=== PATIENT | male | born 1960 | race Caucasian/White ===

== ENCOUNTER 2019-06-23 11:48 | Outpatient (CLI) | payer BC, SELFPAY ==
--- NOTE | 2019-06-23 11:59 | XR_ITS ---
WS: [id number] LUMBAR SPINE: 3 VIEWS TECHNIQUE: AP, lateral and L5-S1 spot. HISTORY: LUMBAGO COMPARISON: None available. Straightening of the normal lumbar lordosis. Mild facet joint arthropathy at L4-5 and L5-S1. No fract ures. Endplate osteophytes. Disc spaces are well preserved. There is very slight LEFT curvature of th e lumbar spine. Endplate osteophytes at all levels in the lumbar spine. Mild bilateral SI joint narrowing. XR/XR lumbar spine 2-3V* [id number] IMPRESSION: 1. No lumbar spine fracture. 2. Mild spondylosis with slight LEFT convex curvature of the lumbar spine.
== END 2019-06-23 11:49 | disposition home or self-care (01) ==
LOC: RADWPI 11:55
PROVIDERS: PCP Nurse Practitioner Family; Visit Provider Nurse Practitioner Family
DX: M54.5 Low back pain (principal); M47.9 Spondylosis, unspecified
CPT/HCPCS: 72100

== ENCOUNTER 2019-11-03 08:26 | Outpatient (CLI) | payer MEDICAID, SELFPAY ==
--- NOTE | 2019-11-03 08:35 | XR_ITS ---
WS: [id number] CERVICAL SPINE TECHNIQUE: 3 views of the cervical spine CLINICAL INFORMATION: NEUROPATHY, PERIPHERAL COMPARISON: None. FINDINGS: Normal cervical alignment. Normal C1-2 articulation. Normal prevertebral soft tissues. Mild spondylit ic changes. Dens is normal in appearance. XR/XR cervical spine 3V* [id number] IMPRESSION: Mild spondylitic changes. Otherwise unremarkable cervical spine.
== END 2019-11-03 08:27 | disposition home or self-care (01) ==
LOC: RADWPI 08:29
PROVIDERS: Family Provider Nurse Practitioner Family; PCP Nurse Practitioner Family; Visit Provider Nurse Practitioner Family
DX: G62.9 Polyneuropathy, unspecified (principal); I10 Essential (primary) hypertension; E78.5 Hyperlipidemia, unspecified
CPT/HCPCS: 72040

== ENCOUNTER → 2019-11-29 11:51 | Outpatient (BNVA) | payer MEDICAID, SELFPAY | PROVIDERS: Family Provider Nurse Practitioner Family; PCP Nurse Practitioner Family; Referring Provider Nurse Practitioner Family; Visit Provider Specialist | DX: G56.23 Lesion of ulnar nerve, bilateral upper limbs (principal); R20.0 Anesthesia of skin; R20.2 Paresthesia of skin | CPT/HCPCS: 95910 ==

== ENCOUNTER 2020-02-20 20:00 | Outpatient (CLI) | payer MEDICAID, SELFPAY | END 2020-02-20 20:01 | disposition home or self-care (01) | LOC: SLEEP 02-21 09:34 | PROVIDERS: Family Provider Nurse Practitioner Family; PCP Nurse Practitioner Family; Visit Provider Nurse Practitioner Family | DX: G47.33 Obstructive sleep apnea (adult) (pediatric) (principal) | CPT/HCPCS: 95811 ==

== ENCOUNTER 2020-03-21 20:00 | Outpatient (CLI) | payer MEDICAID, SELFPAY | END 2020-03-21 20:01 | disposition home or self-care (01) | LOC: SLEEP 03-22 09:10 | PROVIDERS: PCP Nurse Practitioner Family; Visit Provider Nurse Practitioner Family | DX: G47.33 Obstructive sleep apnea (adult) (pediatric) (principal) | CPT/HCPCS: 95811 ==

== ENCOUNTER 2020-03-21 23:10 | Inpatient (IN) | payer MEDICAID, SELFPAY ==
[2020-03-21 23:11] VITALS: BP 107/70; PULSE 70; TEMP 36.7; O2SAT 99; BMI 39.1
--- NOTE | 2020-03-21 23:15 | CTR_ITS ---
PROCEDURE INFORMATION: Exam: CT Head Without Contrast Exam date and time: 03/21/2020 11:30 PM Age: 60 years old Clinical indication: Altered mental status/memory loss; Confusion or disorientation TECHNIQUE: Imaging protocol: Computed tomography of the head without contrast. Radiation optimization: All CT scans at this facility use at least one of these dose optimization techniques: automated exposure control; mA and/or kV adjustment per patient size (includes targeted exams where dose is matched to clinical indication); or iterative reconstruction. COMPARISON: No relevant prior studies available. RADIATION DOSE METRICS: Total DLP (mGy-cm): 1495.75 FINDINGS: Brain: No acute intracranial hemorrhage or mass effect. No definite acute infarct by CT. MRI could be more sensitive/specific for detection, as clinically directed. Cerebral ventricles: Ventricle size is normal for age. Bones/joints: No definite acute skull fracture. Paranasal sinuses: Included paranasal sinuses are essentially clear. Mastoid air cells: No significant acute finding. Vasculature: Vascular calcifications in the internal carotid arteries. CT/CT head wo con* [id number] IMPRESSION: 1. No acute intracranial hemorrhage or mass effect. 2. No definite acute infarct by CT, see above. 3. Other findings discussed above. Radiation Dose CTDIVOL = (mGy): DLP = 1495.75 (mGy-cm)
--- NOTE | 2020-03-21 23:15 | XR_ITS ---
WS: [id number] Exam: XR chest 1V portable [id number] Date/Time of Exam: 03/21/2020 11:30 PM Reason For Exam: Altered mental status No prior exams. The lungs are fully expanded. No infiltrates or pleural effusions are seen. Heart size is top limits normal. The mediastinum and bony thorax are unremarkable. XR/XR chest 1V portable [id number] IMPRESSION: 1. No acute cardiopulmonary finding.
--- NOTE | 2020-03-21 23:16 | ECG_ITS ---
[facility] Test Date: 2020-03-22 Pat Name: Richard Inman Department: Room: Gender: Male Nurse Advisor: : 1960 Requested By: Joann Santiago Order Number: [id number] Reading MD: JACINTA YOUNG Measurements Intervals [place] Rate: 69 P: 69 NH: 181 QRS: 61 QRSD: 88 T: 42 QT: 392 QTc: 422 Interpretive Statements SINUS RHYTHM No previous ECG available for comparison Electronically Signed On 03-22-2020 18:21:26 CDT by JACINTA YOUNG [id number] f
[2020-03-21 23:30] VITALS: BP 107/61; PULSE 71; RESP 28; O2SAT 92
--- NOTE | 2020-03-21 23:35 | ED_ITS ---
HPI - General Adult General: Chief complaint: General Medical Stated complaint: low o2 Time Seen by Provider: 03/21/20 23:14 Source: patient and EMS Mode of arrival: EMS Limitations: altered mental status History of Present Illness: HPI narrative: Richard is a 60-year-old male brought in by EMS from the sleep lab here at the hospital. Poor historian secondary to confusion and somnolence. EMS reports the patient has been sick for the past few days but it is unclear with what illness. It sounds as though it is more of respiratory symptoms than anything else. The patient was to have a sleep study done tonight and upon arrival there they registered a pulse oximetry at 62%. They placed the patient on supplemental oxygen and got his oxygen up to the 90s on 4 L. EMS reports the patient seems confused and does not understand while he is going to the ER. At times though the patient will just fall asleep and has to be shouted out to have him open his eyes. Patient answers most questions but does not give more than 1 or 2 word answers. Patient states that he does not take any narcotics, benzodiazepines then denies alcohol. All further history is taken from records found in the chart and from EMS. Review of Systems General: Reports: ROS unobtainable due to mental status [facility] PFSH: Medical History CVA (cerebral vascular accident) Depression with anxiety GERD (gastroesophageal reflux disease) Hyperlipidemia Hypertension Obstructive sleep apnea Physical Exam Const: COMMON NORMALS: alert GENERAL APPEARANCE: lethargic and diaphoretic ORIENTATION/CONSCIOUSNESS: Yes lethargic HENMT: COMMON NORMALS: normocephalic, atraumatic, external ears normal, EAC's normal and Normal external nose present HEAD & SCALP: normal to inspection, normocephalic and atraumatic FACE & SINUS: normal facial exam and face symmetric NOSE: Normal external nose present and Normal nares present EXTERNAL EAR: Yes external ears normal EXTERNAL AUDITORY CANAL: EAC's normal MOUTH: Normal oral and palatal mucosa present, lip normal and tongue normal Eye: COMMON NORMALS: Equal, round and reactive pupils present and conjunctivae normal GENERAL EYE: appearance normal, both eyes and all related structures ALIGNMENT: Yes alignment normal PERIORBITAL: periorbital findings normal EYELID: eyelids normal CONJUNCTIVA: Yes conjunctivae normal SCLERA: sclerae normal PUPIL: Yes Equal, round and reactive pupils present Neck/C-Spine: COMMON NORMALS: full ROM, no lymphadenopathy, supple, no meningeal signs and no JVD GENERAL: Yes normal visual inspection and Yes trachea midline Chest: COMMONS NORMALS: normal inspection of the chest and normal palpation of entire chest wall Resp: EFFORT & INSPECTION: Yes audible wheezes AUSCULTATION: rhonchi, wheezes and diminished lung sounds Cardio: COMMON NORMALS: no JVD, regular rate, regular rhythm, S1 normal heart sound present and S2 normal heart sound present RATE: regular rate RHYTHM: regular rhythm HEART SOUNDS: S1 normal heart sound present, S2 normal heart sound present, no click, no gallops, no murmurs and no rubs GI: COMMON NORMALS: Soft to palpation and No hepatosplenomegaly present PALPATION: Yes Soft to palpation, No Tenderness to palpation present (GI), No Guarding due to palpation present (GI), No Rigid due to palpation, Yes No hepatosplenomegaly present, No Hernia present, No Palpable mass present and No Pulsatile mass present : COMMON NORMALS: Yes no CVA tenderness BLADDER/KIDNEY EXAM: Yes no CVA tenderness Back/Pelvis: COMMON NORMALS: no CVA tenderness, thoracic and lumbar spine normal to inspection, no thoracic nor lumbar tenderness and thoraco-lumbar ROM normal Extremity: COMMON NORMALS: normal to inspection, full ROM, capillary refill normal, no joint enlargement, no clubbing, cyanosis or edema and no calf tenderness Neuro: ALDEN COMA SCALE: document GCS findings Veteran coma scale eye opening: Spontaneous Veteran coma scale verbal response: Confused Veteran coma scale motor response: Obey commands Alden coma scale total score: 14 COMMON NORMALS: CN's II-XII intact bilaterally, moves all extremities, no focal motor deficits and no sensory deficits noted SENSORIUM/ORIENTATION: Yes alert and Yes lethargic MENINGEAL SIGNS: Yes no meningeal signs SPEECH: speech normal Skin: COMMON NORMALS: no rashes or lesions noted, turgor normal, no jaundice, no petechiae and no mottling GENERAL SKIN EXAM: no rashes or lesions noted and turgor normal Procedures Intubation Time out performed: Yes sedative: Etomidate Mg Given: 30 paralytic: Succinylcholine Mg Given: 175 Laryngoscope: Samantha ET Tube Size: 8 ET Tube Uncuffed: Yes Tube Secured Location: teeth Tube Placement Confirmation: visualized tube passing through cords, equal breath sounds bilaterally, no breath sounds over epigastrium and confirmation by capnometry Patient Tolerated Procedure: well and no complications Intubation Complications: none Course Vital Signs: Vital signs: Vital Signs Temperature 98.0 F 03/21/20 23:11 Pulse Rate 78 03/22/20 02:44 Respiratory Rate 14 03/22/20 03:30 Blood Pressure 100/60 03/22/20 02:44 Pulse Oximetry 94 03/22/20 02:44 MDM - General Adult MDM Narrative: Medical decision making narrative: Mr. Inman ultimately failed treatment with BiPAP and had to be intubated for his symptoms. Patient was seen evaluated by Dr. Amaro and he was agreeable to the patient. Patient was a difficult intubation secondary to him being short with little neck and a beer but he was successfully intubated. His believe that he likely has some type of hypercapnic respiratory failure possibly precipitated by narcotic use but is unclear at this time. Lab Data: Labs: Lab Results 03/21/20 03/21/20 03/21/20 Range/Units 23:15 23:30 23:30 WBC 8.8 (4.0-10.0) 10^3/ uL RBC 4.82 (4.1-5.3) 10^6/u L Hgb 12.4 (11.7-16.6) g/dL Hct 44.3 (42.0-52.0) % MCV 91.9 (80-94) fL MCH 25.7 L (28.0-34.0) pg MCHC 28.0 L (30.0-36.0) g/dL RDW 16.3 H (12.1-15.1) % Plt Count 204 (130-400) 10^3/c mm MPV 9.9 (7.4-10.4) fL Neut % (Auto) 69.2 % Lymph % (Auto) 18.2 % Power % (Auto) 11.1 % Eos % (Auto) 0.8 % Baso % (Auto) 0.5 % Neut # (Auto) 6.12 (1.8-7.7) 10^3/u L Lymph # (Auto) 1.6 (0.8-4.8) 10^3/u L Power # (Auto) 1.0 H (0.2-0.9) 10^3/u L Eos # (Auto) 0.1 (0.0-0.8) 10^3/u L Baso # (Auto) 0.0 (0.0-0.1) 10^3/u L Nucleated RBC % (a uto) 0.5 % Nucleated RBCs # 0.0 /100WBC PT 13.30 (12.1-14.9) SECO NDS INR 0.98 (0.8-1.2) Specimen Type Arterial Sample Site Radial, right ABG pH 7.28 L (7.35-7.45) ABG pCO2 66.4 H* (35-45) mmHg ABG pO2 86.1 (80.0-100.0) mmH g ABG HCO3 31.4 H (22-26) mmol/L ABG O2 Saturation 95.7 ABG Base Excess 3.0 H (-2.0-2.0) mmol/ L Kai Test Pos Hematocrit 37.9 L (42-52) % Hgb O2 Saturation 92.4 L (95-100) % Carboxyhemoglobin 2.4 (0.4-20.1) %THgb Methemoglobin 1.0 (0.4-1.5) % Total Hemoglobin 12.4 L (14-18) g/dL Sodium 143.0 (131-143) mmol/L Potassium 4.5 (3.5-5.0) mmol/L Glucose 90.0 (70-115) mg/dL Ionized Calcium 1.2 (1.1-1.4) mmol/L O2 Delivery Device Nc O2 Liters/Min 2.0 % FiO2 % Epic Analyst ID Harkr Chloride (98-107) mmol/L Carbon Dioxide (22-29) mmol/L Anion Gap (5-19) BUN (8-23) mg/dL Creatinine (0.7-1.2) mg/dL GFR Calculation (90-130) mL/min Calculated Osmolal ity (285-295) mOsm/k g Lactic Acid (0.5-2.2) mmol/L Calcium (8.5-10.5) mg/dL Magnesium (1.7-2.3) mg/dL Total Bilirubin (0.15-1.2) mg/dL AST (0-40) U/L ALT (0-41) U/L Alkaline Phosphata se (40-130) IU/L Ammonia (16-60) umol/L Troponin T Baselin e (0-15) ng/L Troponin T 120 Min port gamble (0-15) ng/L Delta Troponin T (0-10) ABS# NT-Pro-B Natriuret Pep (0-125) pg/mL Total Protein (6.6-8.7) g/dL Albumin (3.5-5.2) g/dL Globulin (1.3-4.6) g/dL Lipase (13-60) U/L Ethyl Alcohol (0-10) mg/dL Influenza Type A A g (Negative) Influenza Type B A g (Negative) SARS-CoV-2 Ag (Rap id) (Negative) 03/21/20 03/21/20 03/21/20 Range/Units 23:30 23:30 23:30 WBC (4.0-10.0) 10^3/ uL RBC (4.1-5.3) 10^6/u L Hgb (11.7-16.6) g/dL Hct (42.0-52.0) % MCV (80-94) fL MCH (28.0-34.0) pg MCHC (30.0-36.0) g/dL RDW (12.1-15.1) % Plt Count (130-400) 10^3/c mm MPV (7.4-10.4) fL Neut % (Auto) % Lymph % (Auto) % Power % (Auto) % Eos % (Auto) % Baso % (Auto) % Neut # (Auto) (1.8-7.7) 10^3/u L Lymph # (Auto) (0.8-4.8) 10^3/u L Power # (Auto) (0.2-0.9) 10^3/u L Eos # (Auto) (0.0-0.8) 10^3/u L Baso # (Auto) (0.0-0.1) 10^3/u L Nucleated RBC % (a uto) % Nucleated RBCs # /100WBC PT (12.1-14.9) SECO NDS INR (0.8-1.2) Specimen Type Sample Site ABG pH (7.35-7.45) ABG pCO2 (35-45) mmHg ABG pO2 (80.0-100.0) mmH g ABG HCO3 (22-26) mmol/L ABG O2 Saturation ABG Base Excess (-2.0-2.0) mmol/ L Kai Test Hematocrit (42-52) % Hgb O2 Saturation (95-100) % Carboxyhemoglobin (0.4-20.1) %THgb Methemoglobin (0.4-1.5) % Total Hemoglobin (14-18) g/dL Sodium 143 (131-143) mmol/L Potassium 5.0 (3.5-5.0) mmol/L Glucose 96 (70-115) mg/dL Ionized Calcium (1.1-1.4) mmol/L O2 Delivery Device O2 Liters/Min % FiO2 % Epic Analyst ID Chloride 105 (98-107) mmol/L Carbon Dioxide 30 H (22-29) mmol/L Anion Gap 13.0 (5-19) BUN 40 H (8-23) mg/dL Creatinine 2.5 H (0.7-1.2) mg/dL GFR Calculation 26.4 L (90-130) mL/min Calculated Osmolal ity 306 H (285-295) mOsm/k g Lactic Acid 0.9 (0.5-2.2) mmol/L Calcium 8.6 (8.5-10.5) mg/dL Magnesium 2.6 H (1.7-2.3) mg/dL Total Bilirubin 0.2 (0.15-1.2) mg/dL AST 12 (0-40) U/L ALT 16 (0-41) U/L Alkaline Phosphata se 86 (40-130) IU/L Ammonia (16-60) umol/L Troponin T Baselin e 41 H (0-15) ng/L Troponin T 120 Min port gamble (0-15) ng/L Delta Troponin T (0-10) ABS# NT-Pro-B Natriuret Pep 3847 H (0-125) pg/mL Total Protein 6.0 L (6.6-8.7) g/dL Albumin 3.8 (3.5-5.2) g/dL Globulin 2.2 (1.3-4.6) g/dL Lipase 33 (13-60) U/L Ethyl Alcohol < 10 (0-10) mg/dL Influenza Type A A g (Negative) Influenza Type B A g (Negative) SARS-CoV-2 Ag (Rap id) (Negative) 03/22/20 03/22/20 03/22/20 Range/Units 00:20 00:20 00:20 WBC (4.0-10.0) 10^3/ uL RBC (4.1-5.3) 10^6/u L Hgb (11.7-16.6) g/dL Hct (42.0-52.0) % MCV (80-94) fL MCH (28.0-34.0) pg MCHC (30.0-36.0) g/dL RDW (12.1-15.1) % Plt Count (130-400) 10^3/c mm MPV (7.4-10.4) fL Neut % (Auto) % Lymph % (Auto) % Power % (Auto) % Eos % (Auto) % Baso % (Auto) % Neut # (Auto) (1.8-7.7) 10^3/u L Lymph # (Auto) (0.8-4.8) 10^3/u L Power # (Auto) (0.2-0.9) 10^3/u L Eos # (Auto) (0.0-0.8) 10^3/u L Baso # (Auto) (0.0-0.1) 10^3/u L Nucleated RBC % (a uto) % Nucleated RBCs # /100WBC PT (12.1-14.9) SECO NDS INR (0.8-1.2) Specimen Type Sample Site ABG pH (7.35-7.45) ABG pCO2 (35-45) mmHg ABG pO2 (80.0-100.0) mmH g ABG HCO3 (22-26) mmol/L ABG O2 Saturation ABG Base Excess (-2.0-2.0) mmol/ L Kai Test Hematocrit (42-52) % Hgb O2 Saturation (95-100) % Carboxyhemoglobin (0.4-20.1) %THgb Methemoglobin (0.4-1.5) % Total Hemoglobin (14-18) g/dL Sodium (131-143) mmol/L Potassium (3.5-5.0) mmol/L Glucose (70-115) mg/dL Ionized Calcium (1.1-1.4) mmol/L O2 Delivery Device O2 Liters/Min % FiO2 % Epic Analyst ID Chloride (98-107) mmol/L Carbon Dioxide (22-29) mmol/L Anion Gap (5-19) BUN (8-23) mg/dL Creatinine (0.7-1.2) mg/dL GFR Calculation (90-130) mL/min Calculated Osmolal ity (285-295) mOsm/k g Lactic Acid (0.5-2.2) mmol/L Calcium (8.5-10.5) mg/dL Magnesium (1.7-2.3) mg/dL Total Bilirubin (0.15-1.2) mg/dL AST (0-40) U/L ALT (0-41) U/L Alkaline Phosphata se (40-130) IU/L Ammonia 37 (16-60) umol/L Troponin T Baselin e (0-15) ng/L Troponin T 120 Min port gamble (0-15) ng/L Delta Troponin T (0-10) ABS# NT-Pro-B Natriuret Pep (0-125) pg/mL Total Protein (6.6-8.7) g/dL Albumin (3.5-5.2) g/dL Globulin (1.3-4.6) g/dL Lipase (13-60) U/L Ethyl Alcohol (0-10) mg/dL Influenza Type A A g Negative (Negative) Influenza Type B A g Negative (Negative) SARS-CoV-2 Ag (Rap id) Negative (Negative) 03/22/20 03/22/20 Range/Units 00:58 02:41 WBC (4.0-10.0) 10^3/ uL RBC (4.1-5.3) 10^6/u L Hgb (11.7-16.6) g/dL Hct (42.0-52.0) % MCV (80-94) fL MCH (28.0-34.0) pg MCHC (30.0-36.0) g/dL RDW (12.1-15.1) % Plt Count (130-400) 10^3/c mm MPV (7.4-10.4) fL Neut % (Auto) % Lymph % (Auto) % Power % (Auto) % Eos % (Auto) % Baso % (Auto) % Neut # (Auto) (1.8-7.7) 10^3/u L Lymph # (Auto) (0.8-4.8) 10^3/u L Power # (Auto) (0.2-0.9) 10^3/u L Eos # (Auto) (0.0-0.8) 10^3/u L Baso # (Auto) (0.0-0.1) 10^3/u L Nucleated RBC % (a uto) % Nucleated RBCs # /100WBC PT (12.1-14.9) SECO NDS INR (0.8-1.2) Specimen Type Arterial Sample Site Radial, right ABG pH 7.24 L (7.35-7.45) ABG pCO2 71.5 H* (35-45) mmHg ABG pO2 88.3 (80.0-100.0) mmH g ABG HCO3 30.3 H (22-26) mmol/L ABG O2 Saturation ABG Base Excess 1.0 (-2.0-2.0) mmol/ L Kai Test Pos Hematocrit 38.0 L (42-52) % Hgb O2 Saturation (95-100) % Carboxyhemoglobin (0.4-20.1) %THgb Methemoglobin (0.4-1.5) % Total Hemoglobin (14-18) g/dL Sodium (131-143) mmol/L Potassium (3.5-5.0) mmol/L Glucose (70-115) mg/dL Ionized Calcium (1.1-1.4) mmol/L O2 Delivery Device Bipap O2 Liters/Min % FiO2 0.4 % Epic Analyst ID Harkr Chloride (98-107) mmol/L Carbon Dioxide (22-29) mmol/L Anion Gap (5-19) BUN (8-23) mg/dL Creatinine (0.7-1.2) mg/dL GFR Calculation (90-130) mL/min Calculated Osmolal ity (285-295) mOsm/k g Lactic Acid (0.5-2.2) mmol/L Calcium (8.5-10.5) mg/dL Magnesium (1.7-2.3) mg/dL Total Bilirubin (0.15-1.2) mg/dL AST (0-40) U/L ALT (0-41) U/L Alkaline Phosphata se (40-130) IU/L Ammonia (16-60) umol/L Troponin T Baselin e (0-15) ng/L Troponin T 120 Min port gamble 38.04 H (0-15) ng/L Delta Troponin T -2.96 L (0-10) ABS# NT-Pro-B Natriuret Pep (0-125) pg/mL Total Protein (6.6-8.7) g/dL Albumin (3.5-5.2) g/dL Globulin (1.3-4.6) g/dL Lipase (13-60) U/L Ethyl Alcohol (0-10) mg/dL Influenza Type A A g (Negative) Influenza Type B A g (Negative) SARS-CoV-2 Ag (Rap id) (Negative) Imaging Data^: CXR: Attestation: I personally reviewed and interpreted this imaging study as follows: My impression: No acute cardiopulmonary findings. CXR Post Intubation: Attestation: I personally reviewed and interpreted this imaging study as follows: My impression: ET tube and NG tube with appropriate placement. CT Head: Radiologist's impression: [address] [address] [address] Scan Report Signed Patient: Richard Inman Unit #: [id number] : 1960 Age/Sex: 60 / M ADM Date: 03/21/20 Loc: ER Room/Bed: Attending Dr: Ordering Provider/Ordering MD: Joann Escalera DO Date of Service: 03/21/20 Procedure(s): CT head wo con* [id number] Accession Number(s): [id number] Report Number: [id number] PROCEDURE INFORMATION: Exam: CT Head Without Contrast Exam date and time: 03/21/2020 11:30 PM Age: 60 years old Clinical indication: Altered mental status/memory loss; Confusion or disorientation TECHNIQUE: Imaging protocol: Computed tomography of the head without contrast. Radiation optimization: All CT scans at this facility use at least one of these dose optimization techniques: automated exposure control; mA and/or kV adjustment per patient size (includes targeted exams where dose is matched to clinical indication); or iterative reconstruction. COMPARISON: No relevant prior studies available. RADIATION DOSE METRICS: Total DLP (mGy-cm): 1495.75 FINDINGS: Brain: No acute intracranial hemorrhage or mass effect. No definite acute infarct by CT. MRI could be more sensitive/specific for detection, as clinically directed. Cerebral ventricles: Ventricle size is normal for age. Bones/joints: No definite acute skull fracture. Paranasal sinuses: Included paranasal sinuses are essentially clear. Mastoid air cells: No significant acute finding. Vasculature: Vascular calcifications in the internal carotid arteries. CT/CT head wo con* [id number] IMPRESSION: 1. No acute intracranial hemorrhage or mass effect. 2. No definite acute infarct by CT, see above. 3. Other findings discussed above. Radiation Dose CTDIVOL = (mGy): DLP = 1495.75 (mGy-cm) Dictated By: Jerson Levy MD Signed By: Jerson Lvey MD Signed Date/Time: 03/22/209 DD/ EKG Data^: EKG 1: Attestation: I personally reviewed and interpreted this EKG as follows: EKG interpretation date: 03/22/20 EKG interpretation time: 00:20 Interpretation: Normal sinus rhythm at 64 beats a minute, no blocks, normal intervals, no acute ST-T wave changes. Computer generated interpretation: Head CT 03/21/20 23:15 IMPRESSION: 1. No acute intracranial hemorrhage or mass effect. 2. No definite acute infarct by CT, see above. 3. Other findings discussed above. Radiation Dose CTDIVOL = (mGy): DLP = 1495.75 (mGy-cm) Discharge Plan Discharge Patient Disposition: Admitted As Inpatient Admit Provider: Ama Amaro Clinical Impression: Acute hypercapnic respiratory failure, Acute alteration in mental status Condition: Stable Coding Level of Care Code ED Pulling Machine Operator for Chg Fwd Exam Comprehensive
[2020-03-21 23:41] LABS: Basophils % 0.5 %; Eosinophils # 0.1 10^3/uL (0.0-0.8); Eosinophils % 0.8 %; Hematocrit 44.3 % (42.0-52.0); Hemoglobin 12.4 g/dL (11.7-16.6); Lymphocytes # 1.6 10^3/uL (0.8-4.8); Lymphocytes % 18.2 %; Mean Corpuscular Hemoglobin 25.7 pg (28.0-34.0); Mean Corpuscular Volume 91.9 fL (80-94); Mean Platelet Volume 9.9 fL (7.4-10.4); Monocytes % 11.1 %; Neutrophils # 6.12 10^3/uL (1.8-7.7); Neutrophils % 69.2 %; Nucleated Red Blood Cells % 0.5 %; Platelet Count 204 10^3/cmm (130-400); Red Blood Count 4.82 10^6/uL (4.1-5.3); Red Cell Distribution Width 16.3 % (12.1-15.1); White Blood Count 8.8 10^3/uL (4.0-10.0)
[2020-03-21 23:56] LABS: INR 0.98 (0.8-1.2)
[2020-03-22] VITALS (47 sets, daily range): BP systolic 88–142; BP diastolic 50–83; PULSE 52–82; RESP 14–26; TEMP 37.1–37.7; O2SAT 68–99
[2020-03-22 00:04] LABS: Troponin(5th) Baseline 41 ng/L (0-15)
[2020-03-22] MEDS: dexamethasone 10 mg/mL INJ IVP (00:06)
[2020-03-22] MEDS: ondansetron 2 mg/ML SDV 2 mL 4 MG IVP (00:08)
[2020-03-22] MEDS: sodium chloride 0.9% 1,000 ML 100 ML IV (00:10)
[2020-03-22 00:13] LABS: Alanine Aminotransferase 16 U/L (0-41); Albumin Level 3.8 g/dL (3.5-5.2); Alkaline Phosphatase 86 IU/L (40-130); Aspartate Amino Transferase 12 U/L (0-40); Blood Urea Nitrogen 40 mg/dL (8-23); Calcium 8.6 mg/dL (8.5-10.5); Carbon Dioxide 30 mmol/L (22-29); Chloride 105 mmol/L (98-107); Globulin 2.2 g/dL (1.3-4.6); Glomerular Filtration Rate 26.4 mL/min (90-130); Glucose 96 mg/dL (65-115); Lipase 33 U/L (13-60); Magnesium 2.6 mg/dL (1.7-2.3); NT Pro B Type Natriuretic Pept 3847 pg/mL (0-125); Osmolality Calculated 306 mOsm/kg (285-295); Sodium 143 mmol/L (136-145); Total Bilirubin 0.2 mg/dL (0.15-1.2)
[2020-03-22 00:14] LABS: Lactic Sepsis W/Reflex 0.9 mmol/L (0.5-2.2)
[2020-03-22 00:20] LABS: ABG PH Result 7.28 (7.35-7.45); Arterial Blood Gas Hematocrit 37.9 % (42-52); Blood Gas Allen Test Pos; Blood Gas Sample Type Arterial; Carboxyhemoglobin 2.4 %THgb (0.4-20.1); HCO3 ABG 31.4 mmol/L (22-26); HGB O2 Sat 92.4 % (95-100); Ionized Calcium Level - ABG 1.2 mmol/L (1.1-1.4); Oxygen Saturation ABG 95.7; PO2 ABG 86.1 mmHg (80.0-100.0); Potassium Level - ABG 4.5 mmol/L (3.5-5.0); Total Hemoglobin 12.4 g/dL (14-18)
[2020-03-22 00:21] LABS: ABG PCO2 66.4 mmHg (35-45); Blood Gas Operator Identificat HARKR; Blood Gas Sample Site Radial, right; Oxygen Device NC
[2020-03-22 00:30] LABS: Alcohol Level < 10 mg/dL (0-10)
[2020-03-22 00:54] LABS: Ammonia 37 umol/L (16-60)
[2020-03-22] MEDS: FUROsemide 10 mg/mL SDV 4mL 40 MG IVP (01:07)
--- NOTE | 2020-03-22 01:16 | ECG_ITS ---
[facility] Test Date: 2020-03-22 Pat Name: Richard Inman Department: Room: Gender: Male Dual Rate Supervisor: : 1960 Requested By: Joann Santiago Order Number: [id number] Kunal MD: JACINTA YOUNG Measurements Intervals [place] Rate: 64 P: 62 IN: 201 QRS: 74 QRSD: 75 T: 64 QT: 390 QTc: 403 Interpretive Statements SINUS RHYTHM POSSIBLE LEFT ATRIAL ENLARGEMENT [-0.1mV P WAVE IN V1/V2] MODERATE ST DEPRESSION [0.05+ mV ST DEPRESSION] Compared to ECG 03/22/2020 00:18:54 ST (T wave) deviation now present Electronically Signed On 03-22-2020 18:24:01 CDT by JACINTA YOUNG [id number] f
[2020-03-22 01:17] LABS: Influenza A by IFA Negative (Negative); Influenza B by IFA Negative (Negative); SARS Covid-2 Antigen Negative (Negative)
[2020-03-22] MEDS: naloxone 0.4 mg/ml SDV IVP ×4 (01:23→01:53)
[2020-03-22] MEDS: ipratropium-albuterol 3 mL Neb 9 ML INHALATION (01:30)
[2020-03-22 01:56] LABS: ABG PCO2 71.5 mmHg (35-45)
[2020-03-22 01:57] LABS: ABG PH Result 7.24 (7.35-7.45); Blood Gas Allen Test Pos; Blood Gas Operator Identificat HARKR; Blood Gas Sample Site Radial, right; Blood Gas Sample Type Arterial; Fractionated Inspired Oxygen 0.4 %; HCO3 ABG 30.3 mmol/L (22-26); Oxygen Device BIPAP; PO2 ABG 88.3 mmHg (80.0-100.0)
[2020-03-22 03:09] LABS: Troponin 5 2HR 38.04 ng/L (0-15)
[2020-03-22 03:13] LABS: Troponin 5 2HR Delta -2.96 ABS# (0-10)
[2020-03-22] MEDS: succinylcholine 20 mg/mL SDV 10mL 175 MG IVP (03:19)
[2020-03-22] MEDS: vecuronium 10 mg SDV 11 MG IVP (03:22)
[2020-03-22] MEDS: LORazepam 2 mg/mL INJ 1 mL IVP (03:23)
--- NOTE | 2020-03-22 03:42 | XR_ITS ---
WS: [id number] Exam: XR chest 1V portable [id number] Date/Time of Exam: 03/22/2020 3:20 AM Reason For Exam: Intubation Comparison 03/21/2020. An endotracheal tube has been placed and it ends at the level of the lorena. The tube should be withd rawn approximately 2 cm for optimal position. The lungs are well ventilated bilaterally. An NG tube i s noted ending in the gastric fundus. The lungs are fully inflated. No acute infiltrates or pleural e ffusions. The mediastinum and bony thorax are unremarkable. XR/XR chest 1V portable [id number] IMPRESSION: 1. ET tube ending at the lorena. The tube should be withdrawn about 2 cm for op timal position. The lungs are well ventilated bilaterally. 2. NG tube in the fundus of the stomach. 3. No acute cardiopulmonary finding.
[2020-03-22] MEDS: propofol 1,000 MG/100 ML INJ 6.8 MG IV (03:53)
[2020-03-22 04:04] LABS: Add Urine Microscopic? NO
--- NOTE | 2020-03-22 04:04 | P.HP_ITS ---
Providers/Chief Complaint Admitting Physician: Ama Amaro Primary Care Provider: Gomez Chris NP Chief Complaint: low o2 History of Present Illness 60-year-old with a past medical history significant for severe obstructive sleep apnea who was brought to the hospital from sleep lab after he was found to have significant hypoxia. Apparently patient's O2 sats were in the low 60s. He was difficult to arouse as well. Upon arrival to emergency room he was placed on BiPAP. Addition was given multiple doses of Narcan. Due to persistent symptoms he was intubated and placed on mechanical ventilation. Required propofol and fentanyl for sedation. Was found to briefly be hypotensive afterwards requiring Levophed. Laboratory workup showed a WBC of 8.8, hemoglobin of 12.4, abran tocrit of 44.3 and a platelet count of 204. blood gases showed a pH of 7.28, pCO2 of 66, PO2 of 86 and a bicarb of 31.4. Sodium 143, potassium 5.0, chloride 105, bicarb 30, BUN 40 and creatinine of 2.5. ProBNP was found to be 3847. urinary drug screen was negative. Admitted to the ICU for further workup. Review of Systems General: Reports: 10 or more systems reviewed and unremarkable except in HPI and below Medications/Allergies Allergies Allergy/AdvReac Type Severity Reaction Status Date / Time No Known Allergies Allergy Verified 11/29/19 12:18 PFSH Acute PFSH: Medical History CVA (cerebral vascular accident) Depression with anxiety GERD (gastroesophageal reflux disease) Hyperlipidemia Hypertension Obstructive sleep apnea Vitals/I&O/Wt Last Vital Signs Temp 98.0 F 03/21/20 23:11 Pulse 68 03/22/20 05:12 Resp 14 03/22/20 05:55 BP 123/71 03/22/20 05:12 Pulse Ox 99 03/22/20 05:12 03/21/20 03/21/20 03/22/20 14:59 22:59 06:59 Intake Total 1050.090 / 1050.090 Output Total 750 / 750 Balance 300.090 / 300.090 Weight last 48 hrs Weight 113.398 kg Physical Exam Narrative: EXAM NARRATIVE: General : intubated on MV ( on repeat follow up exam) HEENT ; ET tube in place CHEST: vented sound bilaterally CVS ; Sinus tachycardia ABD: Non - distended EXT: no edema Urinary Catheter Management^: Mendoza: Cath Placed During This Visit: yes Reason for Continuing Indwelling Catheter: Accurate Measurement of Urinary Output in Critically Ill Patients Urinary Catheter Date of Insertion: 03/22/20 Urinary Catheter Time of Insertion: 03:50 Data : 03/21/20 23:30 03/21/20 23:30 Micro: Microbiology 03/22/20 00:20 Blood Culture - Preliminary Blood SPECIMEN COLLECTED 03/22/20 00:20 Blood Culture - Preliminary Blood SPECIMEN COLLECTED A&P Assessment and plan (1) Acute hypercapnic respiratory failure: Intubated on mechanical ventilation May consider pulmonary consultation Propofol/ fentanyl for sedation Repeat ABGs in a.m. Repeat chest x-ray Weaning trials Wean FiO2 Status: Acute (2) Acute alteration in mental status: Likely secondary to CO2 narcosis No prior history of narcotic use Urinary drug screen negative Status post multiple doses Narcan Status: Acute (3) Acute renal failure (ARF): No prior creatinine Cautious fluid hydration with elevated BNP Mendoza catheter placement Monitor urine output new line renally dose medications Consider nephrology consultation / Renal US in am Status: Acute Attestations Medical Necessity Statement*: Patient is admitted with acute hypercapnic hypoxemic respiratory failure requiring mechanical ventilation will anticipate over 2 midnights stay in hospital for evaluation and treatment. Time Spent in Patient Care: Greater than 35 minutes Coding Level of Care Code Acute [employer] Technician for Misty Aguila Diagnoses Acute hypercapnic respiratory failure J96.02 Acute alteration in mental status R41.82 Acute renal failure (ARF) N17.9
[2020-03-22] MEDS: heparin 5,000 unit/mL INJ 1 mL 5000 UNIT SUBCUT ×2 (04:05→13:35)
[2020-03-22 04:26] LABS: ABG PCO2 46.2 mmHg (35-45); ABG PH Result 7.37 (7.35-7.45); Arterial Blood Gas Hematocrit 38.2 % (42-52); Base Excess ABG 0.9 mmol/L (-2.0-2.0); Blood Gas Allen Test Pos; Blood Gas Sample Type Arterial; HCO3 ABG 26.7 mmol/L (22-26); PO2 ABG 79.4 mmHg (80.0-100.0)
[2020-03-22 04:27] LABS: Blood Gas Operator Identificat HARKR; Blood Gas Sample Site Radial, left; Blood Gas Tidal Volume 0.55; Oxygen Device VENT
[2020-03-22 04:49] LABS: Bilirubin Urine Neg (Negative); Blood Urine Neg (Negative); Glucose Urine UA Norm (Normal); Ketones Urine Negative (Negative); Leukocyte Esterase Urine Negative (Negative); Nitrate Urine Negative (Negative); Protein Urine Neg (Negative); Specific Gravity, Urine 1.015 (1.005-1.030); Urine Appearance Clear (CLEAR); Urine Color Yellow (Yellow); Urobilinogen Urine Norm (Negative)
--- NOTE | 2020-03-22 04:54 | PC.NURSE ---
Pt intubated and unable to answer at this time
[2020-03-22 04:58] LABS: Amphetamines Screen Urine Negative (Negative); Barbiturates Screen Urine Negative (Negative); Benzodiazepines Screen Urine Negative (Negative); Cocaine Screen Urine Negative (Negative); Opiate Screen Urine Negative (Negative); PCP Screen Urine Negative (Negative); THC Screen Urine Negative (Negative)
[2020-03-22 05:16] LABS: Troponin 5 6HR 17.84 ng/L (0-15)
--- NOTE | 2020-03-22 05:16 | ECG_ITS ---
[facility] Test Date: 2020-03-22 Pat Name: Richard Inman Department: Room: ICU11 Gender: Male Materials Associate: : 1960 Requested By: Joann Santiago Order Number: [id number] Kunal MD: JACINAT YOUNG Measurements Intervals [place] Rate: -1 P: [place]: -1 QRS: 0 QRSD: -1 T: 0 QT: -1 QTc: Interpretive Statements Sinus BRADYCARDIA INDETERMINATE AXIS ABNORMAL RHYTHM ECG WARNING: DATA QUALITY MAY AFFECT INTERPRETATION INTERPRETATION BASED ON A DEFAULT AGE OF 40 YEARS Compared to ECG 03/22/2020 00:20:08 Indeterminate axis now present Sinus rhythm no longer present ST (T wave) deviation no longer present Electronically Signed On 03-22-2020 18:23:53 CDT by JACINTA YOUNG [id number]
[2020-03-22] MEDS: dexmedetomidine 400 MCG in sodium chloride 0.9% (100 ml) 100 ML 11.8 MCG IV (05:32)
[2020-03-22] MEDS: sodium chloride 0.9% 1,000 ML 75 ML IV ×2 (05:33→17:38)
[2020-03-22] MEDS: propofol 1,000 MG/100 ML INJ 17 MG IV ×3 (09:06→20:00)
--- NOTE | 2020-03-22 09:10 | P.PN_ITS ---
Subjective Subjective: Interval history: Remains on ventilator support, blood pressure improved overnight, afebrile, had 750 mL urine output overnight. Had a discussion with patient's at bedside during visiting hours. She states that her son drove the patient to the sleep lab for the scheduled sleep study yesterday evening. Patient son did have some difficulty getting him to arouse when he went to pick him up at home and did notice that patient was incontinent. Patient also had difficulty ambulating. He is not oxygen dependent at baseline but has significant daytime somnolence. He had a stroke in February 2019 with some residual gait instability, ambulates with a cane versus walker for longer distances. He is hard of hearing at baseline as well. denies any changes recently to his medications, reports compliance with regimen and had not noticed any overt changes other than some intermittent disorientation which she has seen previously when patient has had poor sleep. Denies exposure to any known COVID- 19 positive individuals. He has complained of increasing lower back pain and earlier this year had cervical and lumbar spine x-rays which show some degree of DJD. He has maintained his oxygenation at FiO2 of 35% throughout the day. Noted thick secretions during suctioning. Medications: Reviewed: Yes Medication Review Details: Active Medications Generic Name Dose Route Start Last Admin Trade Name Freq PRN Reason Stop Dose Admin Heparin Sodium (Be ef Lung) 5,000 unit 03/22/20 02:30 03/22/20 04:05 Heparin SUBCUT 5,000 unit Q12H SABINO Administration Propofol 1,000 mg in 100 m ls @ 0 mls/hr 03/22/20 02:15 03/22/20 09:06 Diprivan IV 24.99 mcg/kg/min .Q0M SABINO 17 mls/hr Administration Protocol Per Protocol Sodium Chloride 1,000 mls @ 75 ml s/hr 03/22/20 02:30 03/22/20 05:33 Sodium Chloride 0.9% IV 75 mls/hr .[id number] SABINO Administration Norepinephrine Bit artrate 4 mg 254 mls @ 0 mls/h r 03/22/20 02:45 03/22/20 05:43 / Dextrose IV 0 mcg/min .Q0M SABINO 0 mls/hr Titration Protocol Per Protocol Naloxone HCl 0.4 mg 03/22/20 01:15 03/22/20 01:53 Narcan IVP 0.4 mg PRN PRN Administration RESPIRATORY RATE < 8/MIN No Known Allergies Allergy (Verified 11/29/19 12:18) Vitals/I&O/Wt Last Vital Signs Temp 98.0 F 03/21/20 23:11 Pulse 54 L 03/22/20 07:00 Resp 14 03/22/20 07:30 BP 122/79 03/22/20 07:00 Pulse Ox 96 03/22/20 07:00 03/21/20 03/22/20 03/22/20 22:59 06:59 14:59 Intake Total 1063.070 / 1063.070 46.013 / 46.013 Output Total 750 / 750 Balance 313.070 / 313.070 46.013 / 46.013 Weight last 48 hrs Weight 113.398 kg Physical Exam Const: COMMON NORMALS: no acute distress GENERAL APPEARANCE: cooperative, comfortable and patient mechanically ventilated NUTRITIONAL APPEARANCE: obese morbidly obese OTHER: -Sedated HENMT: COMMON NORMALS: normocephalic and atraumatic HEAD & SCALP: normocephalic and atraumatic GENERAL EAR: hearing grossly impaired OTHER: -Orally intubated, OG tube in place Eye: COMMON NORMALS: Equal, round and reactive pupils present, EOMs intact bilaterally and conjunctivae normal CONJUNCTIVA: Yes conjunctivae normal PUPIL: Yes Equal, round and reactive pupils present Neck/C-Spine: GENERAL: Yes trachea midline OTHER: -Short, thick neck Resp: COMMON NORMALS: normal respiratory effort, No retractions and No use of accessory muscles EFFORT & INSPECTION: Yes symmetric chest movement and No tachypneic AUSCULTATION: rhonchi and diminished lung sounds OTHER: -On vent support, FiO2 of 35%, tidal volume of 550, PEEP of 8 Cardio: COMMON NORMALS: regular rate, regular rhythm, S1 normal heart sound present, S2 normal heart sound present and No murmurs present (Cardio) RATE: regular rate RHYTHM: regular rhythm HEART SOUNDS: S1 normal heart sound present and S2 normal heart sound present GI: COMMON NORMALS: Normal to inspection, nondistended, normoactive bowel sounds present, Soft to palpation and non-tender INSPECTION: Yes central obesity PALPATION: Yes Soft to palpation : BLADDER/KIDNEY EXAM: Yes catheter in place Catheter type (Male): urethral Extremity: COMMON NORMALS: normal to inspection, no clubbing, cyanosis or edema and no pedal edema Neuro: OTHER: -sedated Psych: OTHER: -sedated with propofol @ 25 mcg/kg/min Skin: COMMON NORMALS: no rashes or lesions noted, no jaundice, no petechiae and no mottling GENERAL SKIN EXAM: no rashes or lesions noted Urinary Catheter Management^: Mendoza: Cath Placed During This Visit: yes Reason for Continuing Indwelling Catheter: Accurate Measurement of Urinary Output in Critically Ill Patients Urinary Catheter Date of Insertion: 03/22/20 Urinary Catheter Time of Insertion: 03:50 Data : 03/21/20 23:30 03/21/20 23:30 Micro: Microbiology 03/22/20 00:20 Blood Culture - Preliminary Blood SPECIMEN COLLECTED 03/22/20 00:20 Blood Culture - Preliminary Blood SPECIMEN COLLECTED A&P Assessment and plan (1) Acute hypercapnic respiratory failure: -Failed BiPAP support, intubated in ER and remains on ventilator support and sedation. Noted difficulty with intubation due to short thick neck -Weaning trial with appropriate -Daily ABG, chest x-ray while on vent; noted improvement in hypoxia and hypercapnia following intubation -Has severe PATRICIO at baseline; not oxygen dependent at baseline -Start on empiric antibiotics, IV steroids -Follow-up blood culture, sputum culture -No leukocytosis, currently afebrile -gentle IVF hydration -add duonebs -influenza negative, rapid COVID-19 test negative -EtOH, UDS negative; no effect after doses of narcan Status: Acute (2) Acute renal failure (ARF): -Unknown baseline as no prior labs to reference -Continue to monitor renal function closely -Nephrotoxins, renally dose meds -Has Mendoza catheter in place, continue to monitor urine output -hold diuretics, ACEi Status: Acute Qualifiers: Acute renal failure type: unspecified Qualified Code(s): N17.9 - Acute kidney failure, unspecified (3) Elevated troponin: -Noted elevated troponins with a delta of 23 -Likely secondary to demand ischemia from significant hypoxia -order Echo, no baseline Status: Acute (4) Acute alteration in mental status: -Likely secondary to severe hypoxia Status: Acute (5) GERD (gastroesophageal reflux disease): -start on PPI Status: Chronic Qualifiers: Esophagitis presence: esophagitis presence not specified Qualified Code(s): K21.9 - Gastro-esophageal reflux disease without esophagitis (6) CVA (cerebral vascular accident): -about 1 yr ago -resume DAPT when appropriate Status: Chronic Qualifiers: CVA mechanism: unspecified Qualified Code(s): I63.9 - Cerebral infarction, unspecified (7) Obstructive sleep apnea: -Severe PATRICIO per recent sleep study done earlier this month, home emmett nvasive ventilator recommended Status: Chronic (8) Hyperlipidemia: -resume statin Status: Chronic Qualifiers: Hyperlipidemia type: unspecified Qualified Code(s): E78.5 - Hyperlipidemia, unspecified (9) Hypertension: -Continue to monitor vital signs -secondary to hypotension required Levophed, weaned off Status: Chronic Qualifiers: Hypertension type: essential hypertension Qualified Code(s): I10 - Essential (primary) hypertension (10) Morbid obesity: -BMI-39 kg/m2 Status: Chronic Additional A&P Information -NPO due to vent support -GI ppx with PPI -DVT ppx with heparin -Dispo: home -Code status: FULL code -ICU care due to vent support - updated at bedside Attestations Medical Necessity Statement*: Patient requires hospitalization for continued management of acute on chronic hypercapnic and hypoxic respiratory failure, on vent support, as well as acute renal failure. Time Spent in Patient Care: Greater than 35 minutes (>than 50% of time spent in counselling and/or direct pt care on unit) . Critical Care Time: The high probability of a clinically significant, sudden or life threatening deterioration of the patient's [respiratory, hemodynamic] system(s) required my full and direct attention, intervention and personal management. The critical care time is as shown. This time is in addition to time spent performing any reported procedures but includes the following: [x] Data and vital sign review and interpretation [x] Patient assessment, examination and intervention [x] Documentation [x] Medication orders and management Critical Care Time (min): 20 Coding Level of Care Code Acute Crane Assembler for [facility] Fwd Exam Comprehensive Diagnoses Acute hypercapnic respiratory failure J96.02 Acute renal failure (ARF) N17.9 Acute renal failure type: unspecified Elevated troponin R77.8 Acute alteration in mental status R41.82 GERD (gastroesophageal reflux disease) K21.9 Esophagitis presence: esophagitis presence not specified CVA (cerebral vascular accident) I63.9 CVA mechanism: unspecified Obstructive sleep apnea G47.33 Hyperlipidemia E78.5 Hyperlipidemia type: unspecified Hypertension I10 Hypertension type: essential hypertension Morbid obesity E66.01
[2020-03-22] MEDS: pantoprazole 40 mg SDV IVP (10:43)
[2020-03-22] MEDS: azithromycin 500 MG in sodium chloride 0.9% 250 ML 250 MG IV (10:44)
[2020-03-22] MEDS: piperacillin-tazobactam 3.375 GM in sodium chloride 0.9% (plus) 50 ML IV ×2 (10:49→17:37)
[2020-03-22] MEDS: ipratropium-albuterol 3 mL Neb INHALATION ×2 (13:18→20:49)
--- NOTE | 2020-03-22 14:42 | PC.NURSE ---
[id number] PATIENTS SON CALLED FROM ED WANTING TO SEE HIS DAD. HE FOUND OUT WHEN HE WENT TO PICK HIM UP AT THE SLEEP LAB THAT HE HAD BEEN SENT HERE. BUT NO ONE HAD CALLED HIM OR HIS MOM (THE PATIENTS ) TO LET THEM KNOW. PATIENT DOES NOT FOLLOW COMMANDS WHEN SEDATION WEANED TO 15 OF DIPRAVAN BUT MOVES AGGRESSIVELY AND CHEWS ON THE ET TUBE. RESTING COMFORTABLY AT 25MCG/KG/MIN
[2020-03-22] MEDS: baclofen 10 mg Tablet OG-TUBE (20:01)
[2020-03-22] MEDS: gabapentin 300 mg Capsule OG-TUBE (20:01)
[2020-03-22] MEDS: atorvastatin 40 mg Tablet 80 MG OG-TUBE (20:01)
--- NOTE | 2020-03-22 22:33 | PC.NURSE ---
Patient resting in bed with eyes closed at this time, patient did become agitated earlier in shift and attempted to try to extubate self, staff increased Propofol to get patient to settle down and rest. Patients lungs have course crackles throughout. Edema noted to all extremities approximately 2+ non pitting. V/S are all WNL. Patient is on 35% FIO2 on mechanical ventilation. Continue care.
[2020-03-22] MEDS: propofol 1,000 MG/100 ML INJ 20.4 MG IV (23:01)
[2020-03-23] VITALS (39 sets, daily range): BP systolic 97–127; BP diastolic 50–87; PULSE 56–82; RESP 14–15; TEMP 36.5–37.8; O2SAT 91–97
[2020-03-23] MEDS: piperacillin-tazobactam 3.375 GM in sodium chloride 0.9% (plus) 50 ML IV ×3 (00:37→16:36)
[2020-03-23] MEDS: heparin 5,000 unit/mL INJ 1 mL 5000 UNIT SUBCUT ×2 (01:41→16:37)
[2020-03-23] MEDS: ipratropium-albuterol 3 mL Neb INHALATION ×4 (02:35→20:43)
[2020-03-23] MEDS: propofol 1,000 MG/100 ML INJ 17 MG IV ×2 (03:51→10:09)
[2020-03-23] MEDS: sodium chloride 0.9% 1,000 ML 75 ML IV (04:21)
--- NOTE | 2020-03-23 04:29 | PC.NURSE ---
Patient continues to rest in bed with eyes closed. Patient is more relaxed now in the shift. V/S remain WNL. Call light within reach. Continue care.
[2020-03-23 04:33] LABS: ABG PCO2 41.6 mmHg (35-45); ABG PH Result 7.44 (7.35-7.45); Arterial Blood Gas Hematocrit 38.6 % (42-52); Base Excess ABG 3.7 mmol/L (-2.0-2.0); Blood Gas Allen Test Pos; Blood Gas Sample Site Radial, right; Blood Gas Sample Type Arterial; HCO3 ABG 28.3 mmol/L (22-26); PO2 ABG 63.2 mmHg (80.0-100.0)
[2020-03-23 04:34] LABS: Blood Gas Tidal Volume 0.55; Oxygen Device VENT
[2020-03-23 04:46] LABS: Hematocrit 41.7 % (42.0-52.0); Hemoglobin 12.2 g/dL (11.7-16.6); Lymphocytes # 0.6 10^3/uL (0.8-4.8); Lymphocytes % 7.4 %; Mean Corpuscular HGB Conc 29.3 g/dL (30.0-36.0); Mean Corpuscular Volume 88.9 fL (80-94); Mean Platelet Volume 10.3 fL (7.4-10.4); Monocytes # 0.5 10^3/uL (0.2-0.9); Monocytes % 6.2 %; Neutrophils # 6.83 10^3/uL (1.8-7.7); Neutrophils % 85.8 %; Nucleated Red Blood Cells % 0.3 %; Platelet Count 203 10^3/cmm (130-400); Red Blood Count 4.69 10^6/uL (4.1-5.3); Red Cell Distribution Width 16.9 % (12.1-15.1)
[2020-03-23 05:29] LABS: Anion Gap 13.9 (5-19); Blood Urea Nitrogen 37 mg/dL (8-23); Calcium 8.6 mg/dL (8.5-10.5); Carbon Dioxide 27 mmol/L (22-29); Chloride 104 mmol/L (98-107); Glomerular Filtration Rate 51.5 mL/min (90-130); Glucose 163 mg/dL (65-115); Osmolality Calculated 304 mOsm/kg (285-295); Potassium 3.9 mmol/L (3.5-5.1); Sodium 141 mmol/L (136-145)
--- NOTE | 2020-03-23 06:00 | XRR_ITS ---
PROCEDURE INFORMATION: Exam: XR Chest, 1 View Exam date and time: 03/23/2020 5:08 AM Age: 60 years old Clinical indication: Device placement; Ett placement (vent status); Additional info: On vent support TECHNIQUE: Imaging protocol: XR of the chest Views: 1 view. COMPARISON: CR XR chest 1V portable [id number] 03/22/2020 3:11 AM FINDINGS: Tubes, catheters and devices: ET tube present, tip about 4 cm above the lorena. NG tube passes beneath the diaphragm, tip likely in the fundus of the stomach. Lungs: No CHF/pulmonary edema. Very mild bilateral lower lung opacities suspicious for atelectasis, pneumonitis not excluded. Visible lungs otherwise appear essentially clear. Pleural space: No visible pneumothorax. No definite pleural fluid. Heart/Mediastinum: Mild cardiomegaly. Bones/joints: No significant acute finding. XR/XR chest 1V portable [id number] IMPRESSION: 1. ET tube position as above. 2. Very mild bilateral lower lung opacities suspicious for atelectasis, pneumonitis not excluded. 3. Other findings discussed above.
--- NOTE | 2020-03-23 06:07 | PC.NURSE ---
SHIFT SUMMARY: Patient resting at this time, did become agitated and attempt to reach for lines. Propofol increased, then titrated back down. Currently running on 25 mcg/kg/min. Patient responds to verbal questions with shaking his head yes or no. Partial bed bath given and changed gown. NS still running at 75 mL's/hr per orders. Lab levels are improving. FIO2 at 35% sats at 94% currently. Denies pain. Call light within reach. Continue care.
[2020-03-23] MEDS: clopidogrel 75 mg Tablet OG-TUBE (08:58)
[2020-03-23] MEDS: baclofen 10 mg Tablet OG-TUBE ×3 (08:58→21:03)
[2020-03-23] MEDS: sertraline 50 mg Tablet OG-TUBE (08:59)
[2020-03-23] MEDS: gabapentin 300 mg Capsule OG-TUBE ×3 (08:59→21:03)
[2020-03-23] MEDS: azithromycin 500 MG in sodium chloride 0.9% 250 ML 250 MG IV (08:59)
[2020-03-23] MEDS: pantoprazole 40 mg SDV IVP (09:00)
--- NOTE | 2020-03-23 09:11 | P.PN_ITS ---
Subjective Subjective: Interval history: Remains on vent support, FiO2 increased to 40% based on noted hypoxia on a.m. ABG. Had 825 mL urine output overnight and 650 mL OGT output. Noted significant improvement in renal function so we will discontinue IV fluids. Spiked low grade temps overnight, Tmax-100 F, currently afebrile. Hemodynamically stable. Easily arousable, has done well throughout the day, was able to sit up with physical therapy earlier this afternoon. Updated at bedside. Medications: Reviewed: Yes Medication Review Details: Active Medications Generic Name Dose Route Start Last Admin Trade Name Freq PRN Reason Stop Dose Admin Albuterol/Ipratrop ium 3 ml 03/22/20 09:12 03/23/20 07:32 Duoneb INHALATION 3 ml Q6H PRN Administration SHORTNESS OF TYRESE TH Atorvastatin Calci um 80 mg 03/22/20 21:00 03/22/20 20:01 Lipitor OG-TUBE 80 mg BEDTIME SABINO Administration Baclofen 10 mg 03/22/20 21:00 03/23/20 08:58 Lioresal OG-TUBE 10 mg TID SABINO Administration Clopidogrel Bisulf ate 75 mg 03/23/20 09:00 03/23/20 08:58 Plavix OG-TUBE 75 mg DAILY SABINO Administration Gabapentin 300 mg 03/22/20 21:00 03/23/20 08:59 Neurontin OG-TUBE 300 mg TID SABINO Administration Heparin Sodium (Be ef Lung) 5,000 unit 03/22/20 02:30 03/23/20 01:41 Heparin SUBCUT 5,000 unit Q12H SABINO Administration Propofol 1,000 mg in 100 m ls @ 0 mls/hr 03/22/20 02:15 03/23/20 03:51 Diprivan IV 25 mcg/kg/min .Q0M SABINO 17 mls/hr Administration Protocol Per Protocol Norepinephrine Bit artrate 4 mg 254 mls @ 0 mls/h r 03/22/20 02:45 03/22/20 22:14 / Dextrose IV 0 mcg/min .Q0M SABINO 0 mls/hr Titration Protocol Per Protocol Azithromycin 500 m g/ Sodium 250 mls @ 250 mls /hr 03/22/20 09:15 03/23/20 08:59 Chloride IV 250 mls/hr Q24H SABINO Administration Protocol Piperacillin Sod/T azobactam 50 mls @ 12.5 mls /hr 03/22/20 09:30 03/23/20 09:00 Sod 3.375 gm/ So dium Chloride IV 12.5 mls/hr Q8H SABINO Administration Protocol As Directed Methylprednisolone Sodium Succinate 60 mg 03/22/20 09:30 03/23/20 09:00 Solu-Medrol IVP 60 mg Q6H SABINO Administration Naloxone HCl 0.4 mg 03/22/20 01:15 03/22/20 01:53 Narcan IVP 0.4 mg PRN PRN Administration RESPIRATORY RATE < 8/MIN Pantoprazole Sodiu m 40 mg 03/22/20 09:30 03/23/20 09:00 Protonix IVP 40 mg DAILY SABINO Administration Sertraline HCl 50 mg 03/23/20 09:00 03/23/20 08:59 Zoloft OG-TUBE 50 mg DAILY SABINO Administration No Known Allergies Allergy (Verified 03/22/20 17:43) Vitals/I&O/Wt Last Vital Signs Temp 98.8 F 03/23/20 08:00 Pulse 74 03/23/20 08:00 Resp 14 03/23/20 07:36 BP 112/54 03/23/20 08:00 Pulse Ox 92 03/23/20 08:00 03/22/20 03/23/20 03/23/20 22:59 06:59 14:59 Intake Total 1169.987 / 1634.117 950.140 / 2584.257 Output Total 2500 / 2500 1425 / 3925 Balance -1330.013 / -865.883 -474.860 / -1340.743 Weight last 48 hrs Weight 113.398 kg Physical Exam Const: COMMON NORMALS: no acute distress GENERAL APPEARANCE: cooperative, comfortable and patient mechanically ventilated NUTRITIONAL APPEARANCE: obese morbidly obese OTHER: -Sedated though easily arousable to voice and tactile stimulation HENMT: COMMON NORMALS: normocephalic and atraumatic HEAD & SCALP: nor mocephalic and atraumatic GENERAL EAR: hearing grossly impaired OTHER: - Orally intubated, OG tube in place Eye: COMMON NORMALS: Equal, round and reactive pupils present, EOMs intact bilaterally and conjunctivae normal CONJUNCTIVA: Yes conjunctivae normal PUPIL: Yes Equal, round and reactive pupils present Neck/C-Spine: COMMON NORMALS: full ROM GENERAL: Yes trachea midline OTHER: -Short, thick neck Resp: COMMON NORMALS: normal respiratory effort, No retractions and No use of accessory muscles EFFORT & INSPECTION: Yes symmetric chest movement and No tachypneic AUSCULTATION: rhonchi and diminished lung sounds OTHER: -On vent support, FiO2 of 40%, tidal volume of 550, PEEP of 8 Cardio: COMMON NORMALS: regular rate, regular rhythm, S1 normal heart sound present, S2 normal heart sound present and No murmurs present (Cardio) RATE: regular rate RHYTHM: regular rhythm HEART SOUNDS: S1 normal heart sound present and S2 normal heart sound present GI: COMMON NORMALS: Normal to inspection, nondistended, normoactive bowel sounds present, Soft to palpation and non-tender INSPECTION: Yes central obesity PALPATION: Yes Soft to palpation : BLADDER/KIDNEY EXAM: Yes catheter in place Extremity: COMMON NORMALS: normal to inspection, no clubbing, cyanosis or edema and no pedal edema Neuro: OTHER: -sedated Psych: OTHER: -sedated with propofol @ 25 mcg/kg/min Skin: COMMON NORMALS: no rashes or lesions noted, no jaundice, no petechiae and no mottling GENERAL SKIN EXAM: no rashes or lesions noted Urinary Catheter Management^: Mendoza: Cath Placed During This Visit: yes Reason for Continuing Indwelling Catheter: Accurate Measurement of Urinary Output in Critically Ill Patients Urinary Catheter Date of Insertion: 03/22/20 Urinary Catheter Time of Insertion: 03:50 Data : 03/23/20 04:17 03/23/20 04:17 Micro: Microbiology 03/22/20 00:20 Blood Culture - Preliminary Blood NEGATIVE TO DATE 03/22/20 00:20 Blood Culture - Preliminary Blood NEGATIVE TO DATE A&P Assessment and plan (1) Acute hypercapnic respiratory failure: -Failed BiPAP support, intubated in ER and remains on ventilator support and sedation. Noted difficulty with intubation due to short thick neck -Weaning trial with appropriate -Daily ABG, chest x-ray while on vent; noted improvement in hypoxia and hypercapnia following intubation. Improved findings on AM CXR. -Has severe PATRICIO at baseline; not oxygen dependent at baseline -on empiric antibiotics, IV steroids -blood culture prelim negative -sputum culture pending -No leukocytosis, currently afebrile -off IVF hydration -duonebs -influenza negative, rapid COVID-19 test negative -EtOH, UDS negative; no effect after doses of narcan Status: Acute (2) Acute renal failure (ARF): -Unknown baseline as no prior labs to reference -Continue to monitor renal function closely; improved, off IVF due to concern for fluid overload -Nephrotoxins, renally dose meds -Has Mendoza catheter in place, continue to monitor urine output -hold diuretics, ACEi Status: Acute Qualifiers: Acute renal failure type: unspecified Qualified Code(s): N17.9 - Acute kidney failure, unspecified (3) Elevated troponin: -Noted elevated troponins with a delta of 23 -Likely secondary to demand ischemia from significant hypoxia -Echo: EF=65%, G2DD, no RWMA, trace TR, trace AR Status: Acute (4) Acute alteration in mental status: -Likely secondary to severe hypoxia Status: Acute (5) GERD (gastroesophageal reflux disease): -on PPI Status: Chronic Qualifiers: Esophagitis presence: esophagitis presence not specified Qualified Code(s): K21.9 - Gastro-esophageal reflux disease without esophagitis (6) CVA (cerebral vascular accident): -about 1 yr ago -resume DAPT when appropriate Status: Chronic Qualifiers: CVA mechanism: unspecified Qualified Code(s): I63.9 - Cerebral infarction, unspecified (7) Obstructive sleep apnea: -Severe PATRICIO per recent sleep study done earlier this month, home noninvasive ventilator recommended Status: Chronic (8) Hyperlipidemia: -continune statin Status: Chronic Qualifiers: Hyperlipidemia type: unspecified Qualified Code(s): E78.5 - Hyperlipidemia, unspecified (9) Hypertension: -Continue to monitor vital signs -secondary to hypotension required Levophed, weaned off Status: Chronic Qualifiers: Hypertension type: essential hypertension Qualified Code(s): I10 - Essential (primary) hypertension (10) Morbid obesity: -BMI-39 kg/m2 Status: Chronic Additional A&P Information -NPO due to vent support -GI ppx with PPI -DVT ppx with heparin -Dispo: home -Code status: FULL code -ICU care due to vent support - updated at bedside Attestations Medical Necessity Statement*: Patient requires hospitalization for continued management of acute on chronic hypoxic and hypercapnic respiratory failure, sonu ins on vent support, IV steroids and IV antibiotics as well as IV diuresis. Time Spent in Patient Care: Greater than 35 minutes (>than 50% of time spent in counselling and/or direct pt care on unit) . Critical Care Time: The high probability of a clinically significant, sudden or life threatening deterioration of the patient's [respiratory] system(s) required my full and direct attention, intervention and personal management. The critical care time is as shown. 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
[2020-03-23] MEDS: propofol 1,000 MG/100 ML INJ 10.2 MG IV (15:08)
--- NOTE | 2020-03-23 18:18 | USCV_ITS ---
Richard Inman Age: 60 Gender: M : 1960 Exam Date: 03/23/2020 10:52 Ordering Phys: Yashira Arango MD Technologist: Felisha Castañeda Exam Location: [facility] – [place] Indication: Acute hypoxic respiratory failure BP: 112 / 54 HR: 66 Rhythm: Sinus Technical Quality: Technically difficult study MEASUREMENTS (Male / Female) Normal Values 2D ECHO LV Diastolic Diameter PLAX 4.4 cm 4.2 - 5.9 / 3.9 - 5.3 cm LV Systolic Diameter PLAX 2.4 cm LV Chamber Size 4.0 cm IVS Diastolic Thickness 1.4 cm 0.6 - 1.0 / 0.6 - 0.9 cm IVS Systolic Thickness 1.8 cm LVPW Diastolic Thickness 1.3 cm 0.6 - 1.0 / 0.6 - 0.9 cm LVPW Systolic Thickness 1.9 cm RV Chamber Size 3.1 cm LVOT Diameter 2.1 cm LV Ejection Fraction 2D Teich 77.6 % LA Diameter 4.1 cm LA Width 3.7 cm LA Height 6.8 cm RA Width 3.4 cm RA Height 5.5 cm Aorta at Sinotubular Diameter 2.6 cm M-MODE LV Diastolic Diameter MM 3.6 cm 4.2 - 5.9 / 3.9 - 5.3 cm LV Systolic Diameter MM 2.1 cm LV Ejection Fraction MM Teich 73.8 % IVS Diastolic Thickness MM 1.7 cm 0.6 - 1.0 / 0.6 - 0.9 cm IVS Systolic Thickness MM 2.0 cm LVPW Diastolic Thickness MM 2.0 cm 0.6 - 1.0 / 0.6 - 0.9 cm LVPW Systolic Thickness MM 2.3 cm RV Diastolic Diameter MM 3.2 cm Aortic Annulus Diameter 2.6 cm LA Ao Ratio MM 1.7 MV E Point Septal Separation 0.6 cm DOPPLER AV Peak Velocity 166.0 cm/s LVOT Peak Velocity 132.0 cm/s AV Area Cont Eq vti 2.7 cm squared AV Area Cont Eq pk 2.7 cm squared MV Area PHT 5.0 cm squared Mitral E to A Ratio 1.4 MV E' Velocity 65.5 cm/s Mitral E to MV E' Ratio 8.6 Mitral E to LV E' Lateral Ratio 7.5 Mitral E to LV E' Septal Ratio 10.2 TV Peak E Velocity 59.0 cm/s Right Atrial Pressure 15.0 mmHg PV Peak Velocity 88.0 cm/s RV Acceleration Time 0.1 s RV Ejection Time 0.3 s RV AcT/ET 0.2 FINDINGS Left Ventricle Normal left ventricular cavity size. Normal left ventricular systolic function. No regional wall motion abnormalities. Left ventricular ejection fraction is estimated at 65 %. Grade II/IV diastolic dysfunction, moderately elevated filling pressures. Right Ventricle The right ventricle is normal in size and function. RVSP could not be calculated due to incomplete tricuspid regurgitation velocity profile. Right Atrium The right atrium is normal in size. Left Atrium The left atrium is normal in size. Mitral Valve Mildly thickened mitral valve. No mitral valve stenosis. No mitral valve regurgitation. Aortic Valve Mild aortic valve calcification. No aortic valve stenosis. Trace aortic valve regurgitation. Tricuspid Valve Trace tricuspid valve regurgitation. Pulmonic Valve Structurally normal pulmonic valve without significant stenosis. There is no pulmonic regurgitation. Pericardium Normal pericardium without effusion. Aorta Normal ascending aorta dimension. CONCLUSIONS 1-Normal left ventricular cavity size. Normal left ventricular systolic function. No regional wall motion abnormalities. Left ventricular ejection fraction is estimated at 65 %. Grade II/IV diastolic dysfunction, moderately elevated filling pressures. 2-The right ventricle is normal in size and function. RVSP could not be calculated due to incomplete tricuspid regurgitation velocity profile. 3-There is no pericardial effusion. 4-No significant valve abnormalities. 5-Right atrial pressure is around 5 mm of mercury. 6-There are no prior echocardiogram studies to compare. Linda Gonzalez MD (Electronically Signed) Final Date: 23 March 2020 14:32 S
[2020-03-23] MEDS: propofol 1,000 MG/100 ML INJ 20.4 MG IV (19:56)
[2020-03-23] MEDS: atorvastatin 40 mg Tablet 80 MG OG-TUBE (21:03)
[2020-03-24] VITALS (37 sets, daily range): BP systolic 100–154; BP diastolic 55–85; PULSE 52–90; RESP 10–18; TEMP 36.8–36.9; O2SAT 89–96
[2020-03-24] MEDS: propofol 1,000 MG/100 ML INJ 20.4 MG IV (01:03)
[2020-03-24] MEDS: piperacillin-tazobactam 3.375 GM in sodium chloride 0.9% (plus) 50 ML IV ×3 (01:05→17:35)
[2020-03-24] MEDS: heparin 5,000 unit/mL INJ 1 mL 5000 UNIT SUBCUT ×2 (02:25→15:02)
[2020-03-24] MEDS: ipratropium-albuterol 3 mL Neb INHALATION ×4 (02:32→20:54)
[2020-03-24 04:17] LABS: ABG PCO2 41.1 mmHg (35-45); ABG PH Result 7.45 (7.35-7.45); Arterial Blood Gas Hematocrit 38.7 % (42-52); Blood Gas Sample Site Brachial, right; Blood Gas Sample Type Arterial; Blood Gas Tidal Volume 0.55; HCO3 ABG 28.4 mmol/L (22-26); Oxygen Device VENT; PO2 ABG 80.7 mmHg (80.0-100.0)
[2020-03-24] MEDS: propofol 1,000 MG/100 ML INJ 17 MG IV (04:53)
[2020-03-24 05:03] LABS: Hematocrit 43.1 % (42.0-52.0); Hemoglobin 12.3 g/dL (11.7-16.6); Lymphocytes # 0.6 10^3/uL (0.8-4.8); Lymphocytes % 7.3 %; Mean Corpuscular HGB Conc 28.5 g/dL (30.0-36.0); Mean Corpuscular Hemoglobin 25.3 pg (28.0-34.0); Mean Corpuscular Volume 88.5 fL (80-94); Mean Platelet Volume 10.2 fL (7.4-10.4); Monocytes # 0.7 10^3/uL (0.2-0.9); Monocytes % 7.7 %; Neutrophils % 84.7 %; Nucleated Red Blood Cells % 0.2 %; Platelet Count 199 10^3/cmm (130-400); Red Blood Count 4.87 10^6/uL (4.1-5.3); Red Cell Distribution Width 16.7 % (12.1-15.1); White Blood Count 8.7 10^3/uL (4.0-10.0)
[2020-03-24 05:30] LABS: Anion Gap 13.6 (5-19); Blood Urea Nitrogen 30 mg/dL (8-23); Calcium 8.4 mg/dL (8.5-10.5); Carbon Dioxide 28 mmol/L (22-29); Chloride 104 mmol/L (98-107); Glomerular Filtration Rate 68.1 mL/min (90-130); Glucose 162 mg/dL (65-115); Osmolality Calculated 304 mOsm/kg (285-295); Potassium 3.6 mmol/L (3.5-5.1); Sodium 142 mmol/L (136-145)
--- NOTE | 2020-03-24 06:00 | XRR_ITS ---
PROCEDURE INFORMATION: Exam: XR Chest, 1 View Exam date and time: 03/24/2020 5:10 AM Age: 60 years old Clinical indication: Shortness of breath; Additional info: On vent support TECHNIQUE: Imaging protocol: XR of the chest Views: 1 view. COMPARISON: CR XR chest 1V portable [id number] 03/23/2020 4:56 AM FINDINGS: The thorax is partially obscured by overlying EKG leads. Support lines: endotracheal and feeding tubes. The endotracheal tube terminates 4.0 cm above the lorena. Lungs: Suspected left basilar airspace/pleural disease, which can be better evaluated with AP and lateral chest radiographs, if clinically indicated. Heart/Mediastinum: Cardiomegaly. Bones/joints: Mild degenerative change. XR/XR chest 1V portable [id number] IMPRESSION: Cardiomegaly and suspected left basilar airspace/pleural disease.
--- NOTE | 2020-03-24 07:59 | PM.PN ---
Subjective Subjective: Interval history: Weaning trial today, ABG this AM appropriate with appropriate oxygenation, hemodynamically stable though with some noted intermittent bradycardia, afebrile. Improved renal function. Sedation off and consistently following commands, hemodynamically stable, will plan on extubation later this AM. Medications: Reviewed: Yes Medication Review Details: Active Medications Generic Name Dose Route Start Last Admin Trade Name Freq PRN Reason Stop Dose Admin Albuterol/Ipratrop ium 3 ml 03/22/20 09:12 03/24/20 07:58 Duoneb INHALATION 3 ml Q6H PRN Administration SHORTNESS OF TYRESE TH Atorvastatin Calci um 80 mg 03/22/20 21:00 03/23/20 21:03 Lipitor OG-TUBE 80 mg BEDTIME SABINO Administration Baclofen 10 mg 03/22/20 21:00 03/23/20 21:03 Lioresal OG-TUBE 10 mg TID SABINO Administration Clopidogrel Bisulf ate 75 mg 03/23/20 09:00 03/23/20 08:58 Plavix OG-TUBE 75 mg DAILY SABINO Administration Gabapentin 300 mg 03/22/20 21:00 03/23/20 21:03 Neurontin OG-TUBE 300 mg TID SABINO Administration Heparin Sodium (Be ef Lung) 5,000 unit 03/22/20 02:30 03/24/20 02:25 Heparin SUBCUT 5,000 unit Q12H SABINO Administration Propofol 1,000 mg in 100 m ls @ 0 mls/hr 03/22/20 02:15 03/24/20 07:36 Diprivan IV 20 mcg/kg/min .Q0M SABINO 13.6 mls/hr Titration Protocol Per Protocol Norepinephrine Bit artrate 4 mg 254 mls @ 0 mls/h r 03/22/20 02:45 03/22/20 22:14 / Dextrose IV 0 mcg/min .Q0M SABINO 0 mls/hr Titration Protocol Per Protocol Azithromycin 500 m g/ Sodium 250 mls @ 250 mls /hr 03/22/20 09:15 03/23/20 10:09 Chloride IV Infused Q24H SABINO Infusion Protocol Piperacillin Sod/T azobactam 50 mls @ 12.5 mls /hr 03/22/20 09:30 03/24/20 07:36 Sod 3.375 gm/ So dium Chloride IV Infused Q8H SABINO Infusion Protocol As Directed Methylprednisolone Sodium Succinate 60 mg 03/22/20 09:30 03/24/20 03:53 Solu-Medrol IVP 60 mg Q6H SABINO Administration Naloxone HCl 0.4 mg 03/22/20 01:15 03/22/20 01:53 Narcan IVP 0.4 mg PRN PRN Administration RESPIRATORY RATE < 8/MIN Pantoprazole Sodiu m 40 mg 03/22/20 09:30 03/23/20 09:00 Protonix IVP 40 mg DAILY SABINO Administration Sertraline HCl 50 mg 03/23/20 09:00 03/23/20 08:59 Zoloft OG-TUBE 50 mg DAILY SABINO Administration No Known Allergies Allergy (Verified 03/23/20 10:39) Vitals/I&O/Wt Last Vital Signs Temp 97.7 F 03/23/20 19:00 Pulse 59 L 03/24/20 06:00 Resp 14 03/24/20 07:45 BP 112/65 03/24/20 06:00 Pulse Ox 95 03/24/20 06:00 03/23/20 03/24/20 03/24/20 23:59 06:59 14:59 Intake Total 96.183 / 96.183 Output Total Balance 96.183 / 96.183 Weight last 48 hrs Weight 113.398 kg Physical Exam Const: COMMON NORMALS: no acute distress and alert GENERAL APPEARANCE: cooperative, comfortable and patient mechanically ventilated NUTRITIONAL APPEARANCE: obese morbidly obese ORIENTATION/CONSCIOUSNESS: Yes awake OTHER: -easily arousable to voice and tactile stimulation, consistently follows commands HENMT: COMMON NORMALS: normocephalic and atraumatic HEAD & SCALP: normocephalic and atraumatic GENERAL EAR: hearing grossly impaired OTHER: -Orally intubated, OG tube in place Eye: COMMON NORMALS: Equal, round and reactive pupils present, EOMs intact bilaterally and conjunctivae normal CONJUNCTIVA: Yes conjunctivae normal PUPIL: Yes Equal, round and reactive pupils present Neck/C-Spine: COMMON NORMALS: full ROM GENERAL: Yes trachea midline OTHER: -Short, thick neck Resp: COMMON NORMALS: normal respiratory effort, No retractions and No use of accessory muscles EFFORT & INSPECTION: Yes symmetric chest movement and No tachypneic AUSCULTATION: rhonchi and diminished lung sounds OTHER: -On vent support, FiO2 of 40%, tidal volume of 550, PEEP of 8 Cardio: COMMON NORMALS: regular rate, regular rhythm, S1 normal heart sound present, S2 normal heart sound present and No murmurs present (Cardio) RATE: regular rate RHYTHM: regular rhythm HEART SOUNDS: S1 normal heart sound present and S2 normal heart sound present GI: COMMON NORMALS: Normal to inspection, nondistended, normoactive bowel sounds present, Soft to palpation and non-tender INSPECTION: Yes central obesity PALPATION: Yes Soft to palpation : BLADDER/KIDNEY EXAM: Yes catheter in place Extremity: COMMON NORMALS: normal to inspection, no clubbing, cyanosis or edema and no pedal edema Neuro: COMMON NORMALS: moves all extremities, no focal motor deficits and no sensory deficits noted SENSORIUM/ORIENTATION: Yes alert OTHER: -sedated Psych: COMMON NORMALS: mental status grossly normal, cooperative and normal affect OTHER: <del>-sedated</del> <del>with</del> <del>propofol</del> <del>@</del> <del>25</del> <del>mcg/kg/min</del> Skin: COMMON NORMALS: no rashes or lesions noted, no jaundice, no petechiae and no mottling GENERAL SKIN EXAM: no rashes or lesions noted Urinary Catheter Management^: Mendoza: Cath Placed During This Visit: yes Reason for Continuing Indwelling Catheter: Accurate Measurement of Urinary Output in Critically Ill Patients Urinary Catheter Date of Insertion: 03/22/20 Urinary Catheter Time of Insertion: 03:50 Data : 03/24/20 04:31 03/24/20 04:31 Micro: Microbiology 03/22/20 05:07 Sputum Culture - Preliminary Sputum - Endotracheal Tube Aspirate A&P Assessment and plan (1) Acute hypercapnic respiratory failure: -Failed BiPAP support, intubated in ER and remains on ventilator support and sedation. Noted difficulty with intubation due to short thick neck -Weaning trial today -Daily ABG, chest x-ray while on vent; noted improvement in hypoxia and hypercapnia following intubation. Improved findings on AM CXR. -Has severe PATRICIO at baseline; not oxygen dependent at baseline -on empiric antibiotics, IV steroids -blood culture prelim negative -sputum culture pending -No leukocytosis, currently afebrile -off IVF hydration -duonebs -influenza negative, rapid COVID-19 test negative -EtOH, UDS negative; no effect after doses of narcan Status: Acute (2) Acute renal failure (ARF): -Unknown baseline as no prior labs to reference -Continue to monitor renal function closely; improved, off IVF due to concern for fluid overload -Nephrotoxins, renally dose meds -Has Mendoza catheter in place, continue to monitor urine output -hold diuretics, ACEi Status: Acute Qualifiers: Acute renal failure type: unspecified Qualified Code(s): N17.9 - Acute kidney failure, unspecified (3) Elevated troponin: -Noted elevated troponins with a delta of 23 -Likely secondary to demand ischemia from significant hypoxia -Echo: EF=65%, G2DD, no RWMA, trace TR, trace AR Status: Acute (4) Acute alteration in mental status: -Likely secondary to severe hypoxia Status: Acute (5) GERD (gastroesophageal reflux disease): -on PPI Status: Chronic Qualifiers: Esophagitis presence: esophagitis presence not specified Qualified Code(s): K21.9 - Gastro-esophageal reflux disease without esophagitis (6) CVA (cerebral vascular accident): -about 1 yr ago -resume DAPT when appropriate Status: Chronic Qualifiers: CVA mechanism: unspecified Qualified Code(s): I63.9 - Cerebral infarction, unspecified (7) Obstructive sleep apnea: -Severe PATRICIO per recent sleep study done earlier this month, home noninvasive ventilator recommended Status: Chronic (8) Hyperlipidemia: -continune statin Status: Chronic Qualifiers: Hyperlipidemia type: unspecified Qualified Code(s): E78.5 - Hyperlipidemia, unspecified (9) Hypertension: -Continue to monitor vital signs -secondary to hypotension required Levophed, weaned off Status: Chronic Qualifiers: Hypertension type: essential hypertension Qualified Code(s): I10 - Essential (primary) hypertension (10) Morbid obesity: -BMI-39 kg/m2 Status: Chronic Additional A&P Information -NPO due to vent support -GI ppx with PPI -DVT ppx with heparin -Dispo: home -Code status: FULL code -ICU care due to vent support - updated at bedside Attestations Medical Necessity Statement*: Patient requires hospitalization for continued management of acute hypoxic respiratory failure, on vent support, weaning trial today. Time Spent in Patient Care: 16 - 35 minutes (>than 50% of time spent in counselling and/or direct pt care on unit). Coding Level of Care Code Acute Environmental Consultant for Chg Fwd Exam Comprehensive Diagnoses Acute hypercapnic respiratory failure J96.02 Acute renal failure (ARF) N17.9 Acute renal failure type: unspecified Elevated troponin R77.8 Acute alteration in mental status R41.82 GERD (gastroesophageal reflux disease) K21.9 Esophagitis presence: esophagitis presence not specified CVA (cerebral vascular accident) I63.9 CVA mechanism: unspecified Obstructive sleep apnea G47.33 Hyperlipidemia E78.5 Hyperlipidemia type: unspecified Hypertension I10 Hypertension type: essential hypertension Morbid obesity E66.01
[2020-03-24] MEDS: clopidogrel 75 mg Tablet OG-TUBE (08:00)
[2020-03-24] MEDS: sertraline 50 mg Tablet OG-TUBE (08:00)
[2020-03-24] MEDS: baclofen 10 mg Tablet OG-TUBE (08:01)
[2020-03-24] MEDS: gabapentin 300 mg Capsule OG-TUBE (08:02)
--- NOTE | 2020-03-24 08:22 | PC.NURSE ---
weaning propofol in hopes of extubation.
[2020-03-24] MEDS: azithromycin 500 MG in sodium chloride 0.9% 250 ML 250 MG IV (08:45)
[2020-03-24] MEDS: pantoprazole 40 mg SDV IVP (08:46)
--- NOTE | 2020-03-24 11:28 | PC.NURSE ---
1030 extubated to 4l n.c. linette well.
--- NOTE | 2020-03-24 11:30 | PC.NURSE ---
taking ice chips slowly. nursing swallow study done w/o any coughing from pt.
--- NOTE | 2020-03-24 11:36 | PC.CHAP ---
Pastoral Care Encounter/Spiritual Assessment Type of Contact [] Declined underwriter mortgage loan visit [] Patient/Family/Request visit [] Outpatient visit [] Follow-up visit [] Physician referral [] Code/Alert [X] Routine visit [] Staff referral [] Actively dying [] Patient sleeping [] Family support [] [] Out of room [] Palliative care [] [] Receiving care in room [] Pre-surgical visit [] Trauma [] Long length of stay [X] ICU visit [] Other: Relational/Emotional Strength [] Patient feels connected with others/family/visitors/staff [] Distress [] Loneliness/isolation [] Abandonment Spirituality of Patient [] Person of Riya [] Attends Zoroastrianism of their Riya [] Believes in Prayer [] Reads Bible or Mormon materials [] There are Spiritual issues to be addressed Commercial Sewing Instructor Interventions [] Prayer [X] Active listening [] Non-anxious presence [] Spiritual/emotional support [] Crisis/trauma care [] Spiritual counseling [] Bereavement support [] Provided bereavement packet [] Provided Bible/devotional materials [] Provided toy/stuffed animal, coloring book to patient or family member [] Provided Communion [] Anointing/[place] [] Salvation [X] Completed spiritual assessment [] Other: Impact on Illness or Injury [] Angry [] Fearful [] Anxious [] Often cries [] Exhaustion [] Unable to work [] Unable to attend yazdanism [] Unable to walk/stand [] Unable to read [] Unable to drive [] Unable to eat/drink [] Unable to sleep [] Unable to be with family [] Patient intubated [] Other: Summary: Pt was recently extubated so talking was a bit challenging for him. He states that he has family concerned about him and that he believes in God and Hang but does not pray or go to protestant. Prayer was offered but declined although he seemed to appreciate the visit and that I would pray for him in my own prayers. Time spent with patient: 5 mins
--- NOTE | 2020-03-24 12:20 | PC.NURSE ---
noted pt. resp. rate 8 beats min. while sleeping. awakened and deep breaths and coughed.
[2020-03-24] MEDS: gabapentin 300 mg Capsule PO ×2 (15:01→21:00)
[2020-03-24] MEDS: baclofen 10 mg Tablet PO ×2 (15:02→21:00)
--- NOTE | 2020-03-24 15:20 | PC.NURSE ---
up to chair at bedside. lightheaded at first. did state he cant distinguish between hot and cold on right lower ext.
[2020-03-24] MEDS: atorvastatin 40 mg Tablet 80 MG PO (20:59)
[2020-03-25] VITALS (30 sets, daily range): BP systolic 117–151; BP diastolic 68–102; PULSE 54–81; RESP 11–23; TEMP 36.7–37.1; O2SAT 93–99
[2020-03-25] MEDS: heparin 5,000 unit/mL INJ 1 mL 5000 UNIT SUBCUT ×2 (01:47→14:59)
[2020-03-25] MEDS: piperacillin-tazobactam 3.375 GM in sodium chloride 0.9% (plus) 50 ML IV ×3 (01:47→16:34)
[2020-03-25] MEDS: ipratropium-albuterol 3 mL Neb INHALATION ×2 (07:50→20:08)
[2020-03-25] MEDS: gabapentin 300 mg Capsule PO ×3 (08:30→21:07)
[2020-03-25] MEDS: pantoprazole DR 40 mg Tablet PO (08:30)
[2020-03-25] MEDS: sertraline 50 mg Tablet PO (08:30)
[2020-03-25] MEDS: baclofen 10 mg Tablet PO ×3 (08:30→21:06)
[2020-03-25] MEDS: clopidogrel 75 mg Tablet PO (08:30)
[2020-03-25] MEDS: azithromycin 500 MG in sodium chloride 0.9% 250 ML 250 MG IV (08:31)
--- NOTE | 2020-03-25 08:44 | P.PN_ITS ---
Subjective Subjective: Interval history: Has done well since extubation yesterday morning, on 4 L nasal cannula and was on trilogy overnight. Hemodynamically stable and afebrile. Reports having had a restful night, no complaints this morning. Has been able to void since removal of Mendoza catheter. Medications: Reviewed: Yes Medication Review Details: Active Medications Generic Name Dose Route Start Last Admin Trade Name Freq PRN Reason Stop Dose Admin Albuterol/Ipratrop ium 3 ml 03/22/20 09:12 03/25/20 07:50 Duoneb INHALATION 3 ml Q6H PRN Administration SHORTNESS OF TYRESE TH Atorvastatin Calci um 80 mg 03/24/20 21:00 03/24/20 20:59 Lipitor PO 80 mg BEDTIME SABINO Administration Baclofen 10 mg 03/24/20 15:00 03/25/20 08:30 Lioresal PO 10 mg TID SABINO Administration Clopidogrel Bisulf ate 75 mg 03/25/20 09:00 03/25/20 08:30 Plavix PO 75 mg DAILY SABINO Administration Gabapentin 300 mg 03/24/20 15:00 03/25/20 08:30 Neurontin PO 300 mg TID SABINO Administration Heparin Sodium (Be ef Lung) 5,000 unit 03/22/20 02:30 03/25/20 01:47 Heparin SUBCUT 5,000 unit Q12H SABINO Administration Propofol 1,000 mg in 100 m ls @ 0 mls/hr 03/22/20 02:15 03/24/20 17:51 Diprivan IV Infused .Q0M SABINO Titration Protocol Per Protocol Norepinephrine Bit artrate 4 mg 254 mls @ 0 mls/h r 03/22/20 02:45 03/22/20 22:14 / Dextrose IV 0 mcg/min .Q0M SABINO 0 mls/hr Titration Protocol Per Protocol Azithromycin 500 m g/ Sodium 250 mls @ 250 mls /hr 03/22/20 09:15 03/25/20 08:31 Chloride IV 250 mls/hr Q24H SABINO Administration Protocol Piperacillin Sod/T azobactam 50 mls @ 12.5 mls /hr 03/22/20 09:30 03/25/20 01:47 Sod 3.375 gm/ So dium Chloride IV 12.5 mls/hr Q8H SABINO Administration Protocol As Directed Methylprednisolone Sodium Succinate 60 mg 03/22/20 09:30 03/25/20 03:52 Solu-Medrol IVP 60 mg Q6H SABINO Administration Naloxone HCl 0.4 mg 03/22/20 01:15 03/22/20 01:53 Narcan IVP 0.4 mg PRN PRN Administration RESPIRATORY RATE < 8/MIN Pantoprazole Sodiu m 40 mg 03/25/20 09:00 03/25/20 08:30 Protonix PO 40 mg DAILY SABINO Administration Sertraline HCl 50 mg 03/25/20 09:00 03/25/20 08:30 Zoloft PO 50 mg DAILY SABINO Administration No Known Allergies Allergy (Verified 03/23/20 10:39) Vitals/I&O/Wt Last Vital Signs Temp 98.0 F 03/25/20 08:00 Pulse 66 03/25/20 08:00 Resp 12 03/25/20 08:00 BP 144/89 03/25/20 08:00 Pulse Ox 98 03/25/20 08:00 03/24/20 03/25/20 03/25/20 22:59 06:59 14:59 Intake Total 636.45 / 740.000 300 / 300 Output Total 1200 / 1200 0 / 0 Balance -563.55 / -460.000 300 / 300 Weight last 48 hrs Weight 113.398 kg Weight 113.398 kg Physical Exam Const: COMMON NORMALS: no acute distress, patient oriented x3 and alert GENERAL APPEARANCE: cooperative and comfortable NUTRITIONAL APPEARANCE: obese morbidly obese ORIENTATION/CONSCIOUSNESS: Yes awake OTHER: -sitting in chair by bedside, in good spirits HENMT: COMMON NORMALS: normocephalic and atraumatic HEAD & SCALP: normocephalic and atraumatic GENERAL EAR: hearing grossly impaired Eye: COMMON NORMALS: Equal, round and reactive pupils present, EOMs intact bilaterally and conjunctivae normal CONJUNCTIVA: Yes conjunctivae normal PUPIL: Yes Equal, round and reactive pupils present Neck/C-Spine: COMMON NORMALS: full ROM GENERAL: Yes trachea midline OTHER: -Short, thick neck Resp: COMMON NORMALS: normal respiratory effort, No retractions and No use of accessory muscles EFFORT & INSPECTION: Yes symmetric chest movement and No tachypneic AUSCULTATION: rhonchi and diminished lung sounds OTHER: -On 4 L NC Cardio: COMMON NORMALS: regular rate, regular rhythm, S1 normal heart sound present, S2 normal heart sound present and No murmurs present (Cardio) RATE: regular rate RHYTHM: regular rhythm HEART SOUNDS: S1 normal heart sound present and S2 normal heart sound present GI: COMMON NORMALS: Normal to inspection, nondistended, normoactive bowel sounds present, Soft to palpation and non-tender INSPECTION: Yes central obesity PALPATION: Yes Soft to palpation Extremity: COMMON NORMALS: normal to inspection, no clubbing, cyanosis or edema and no pedal edema Neuro: COMMON NORMALS: patient oriented x3, moves all extremities, no focal motor deficits and no sensory deficits noted SENSORIUM/ORIENTATION: Yes alert Psych: COMMON NORMALS: mental status grossly normal, cooperative and normal affect Skin: COMMON NORMALS: no rashes or lesions noted, no jaundice, no petechiae and no mottling GENERAL SKIN EXAM: no rashes or lesions noted Urinary Catheter Management^: Mendoza: Cath Placed During This Visit: yes, but has since been removed by the nurse Reason for Continuing Indwelling Catheter: Not indwelling catheter Urinary Catheter Date of Insertion: 03/22/20 Urinary Catheter Time of Insertion: 03:50 Date Urinary Catheter Removed: 03/24/20 Time Urinary Catheter Discontinued: 17:00 Data : 03/24/20 04:31 03/24/20 04:31 Micro: Microbiology 03/22/20 05:07 Sputum Culture - Final Sputum - Endotracheal Tube Aspirate A&P Assessment and plan (1) Acute hypercapnic respiratory failure: -Failed BiPAP support, intubated in ER and remains on ventilator support and sedation. Noted difficulty with intubation due to short thick neck -Successfully weaned off ventilator on 03/24 -Has severe PATRICIO at baseline; not oxygen dependent at baseline; anticipate need for supplemental oxygen support on discharge -on empiric antibiotics, IV steroids; switch to PO -blood culture prelim negative -sputum culture prelim normal imani -No leukocytosis, afebrile -off IVF hydration -duonebs -influenza negative, rapid COVID-19 test negative -EtOH, UDS negative; no effect after doses of narcan Status: Acute (2) Acute renal failure (ARF): -Unknown baseline as no prior labs to reference -Continue to monitor renal function closely; improved, off IVF due to concern for fluid overload -Nephrotoxins, renally dose meds -Has Mendoza catheter in place, continue to monitor urine output -resume diuretics, ACEi Status: Acute Qualifiers: Acute renal failure type: unspecified Qualified Code(s): N17.9 - Acute kidney failure, unspecified (3) Elevated troponin: -Noted elevated troponins with a delta of 23 -Likely secondary to demand ischemia from significant hypoxia -Echo: EF=65%, G2DD, no RWMA, trace TR, trace AR Status: Acute (4) Acute alteration in mental status: -Likely secondary to severe hypoxia Status: Acute (5) GERD (gastroesophageal reflux disease): -on PPI Status: Chronic Qualifiers: Esophagitis presence: esophagitis presence not specified Qualified Code(s): K21.9 - Gastro-esophageal reflux disease without esophagitis (6) CVA (cerebral vascular accident): -about 1 yr ago -continue DAPT Status: Chronic Qualifiers: CVA mechanism: unspecified Qualified Code(s): I63.9 - Cerebral infar ction, unspecified (7) Obstructive sleep apnea: -Severe PATRICIO and nocturnal hypoxemia per recent sleep study done earlier this month, home noninvasive ventilator recommended. Patient requires home noninvasive ventilator due to increasing hypercapnia. Noninvasive ventilation more effective than BiPAP to reduce CO2 levels and to prevent future readmissions due to not adequately ventilating the patient. BiPAP does not have advanced features of auto rate, continuous alarms, auto-EPAP, and advance health rules sets to prevent readmissions. Patient requires AVAPS-AE and advanced features to prevent future readmissions. Failure to use noninvasive ventilation could lead to serious health issues, decreased quality of life and put him at risk for multiple hospital readmissions. Status: Chronic (8) Hyperlipidemia: -continue statin Status: Chronic Qualifiers: Hyperlipidemia type: unspecified Qualified Code(s): E78.5 - Hyperlipidemia, unspecified (9) Hypertension: -Continue to monitor vital signs -secondary to hypotension required Levophed, weaned off Status: Chronic Qualifiers: Hypertension type: essential hypertension Qualified Code(s): I10 - Essential (primary) hypertension (10) Morbid obesity: -BMI-39 kg/m2 Status: Chronic Additional A&P Information -cardiac diet as tolerated; no abnormalities noted per ST evaluation -working with PT -GI ppx with PPI -DVT ppx with heparin -Dispo: home; working on setting up Trilogy for home use -Code status: FULL code -transfer to floor for continued care Attestations Medical Necessity Statement*: Patient requires hospitalization for continued m anagement of acute hypoxic respiratory failure s/p extubation. Time Spent in Patient Care: 16 - 35 minutes (>than 50% of time spent in counselling and/or direct pt care on unit) . Coding Level of Care Code Acute Transverse Abdominal Muscle Nurse for Chg Fwd Exam Comprehensive Diagnoses Acute hypercapnic respiratory failure J96.02 Acute renal failure (ARF) N17.9 Acute renal failure type: unspecified Elevated troponin R77.8 Acute alteration in mental status R41.82 GERD (gastroesophageal reflux disease) K21.9 Esophagitis presence: esophagitis presence not specified CVA (cerebral vascular accident) I63.9 CVA mechanism: unspecified Obstructive sleep apnea G47.33 Hyperlipidemia E78.5 Hyperlipidemia type: unspecified Hypertension I10 Hypertension type: essential hypertension Morbid obesity E66.01
--- NOTE | 2020-03-25 10:02 | PC.CHAP ---
Pastoral Care Encounter/Spiritual Assessment Type of Contact [] Declined copier and printer field technician visit [] Patient/Family/Request visit [] Outpatient visit [] Follow-up visit [] Physician referral [] Code/Alert [x] Routine visit [] Staff referral [] Actively dying [] Patient sleeping [] Family support [] [] Out of room [] Palliative care [] [] Receiving care in room [] Pre-surgical visit [] Trauma [] Long length of stay [] ICU visit [] Other: Relational/Emotional Strength [] Patient feels connected with others/family/visitors/staff [] Distress [] Loneliness/isolation [] Abandonment Spirituality of Patient [] Person of Riya [] Attends Religious of their Ri[place] [] Believes in Prayer [] Reads Bible or Evangelical materials [] There are Spiritual issues to be addressed Vice President Of Engineering Interventions [x] Prayer [x] Active listening [x] Non-anxious presence [x] Spiritual/emotional support [] Crisis/trauma care [] Spiritual counseling [] Bereavement support [] Provided bereavement packet [] Provided Bible/devotional materials [] Provided toy/stuffed animal, coloring book to patient or family member [] Provided Communion [] Anointing/[place] [] Salvation [x] Completed spiritual assessment [] Other: Impact on Illness or Injury [] Angry [] Fearful [] Anxious [] Often cries [] Exhaustion [] Unable to work [] Unable to attend islam [] Unable to walk/stand [] Unable to read [] Unable to drive [] Unable to eat/drink [] Unable to sleep [] Unable to be with family [] Patient intubated [] Other: Summary patient resting well, breathing has improved Time spent with patient 10 min
[2020-03-25] MEDS: predniSONE 20 mg Tablet 60 MG PO (10:03)
[2020-03-25] MEDS: chlorthalidone 25 mg Tablet PO (10:03)
[2020-03-25] MEDS: amlodipine 5 mg Tablet PO (10:04)
--- NOTE | 2020-03-25 10:40 | PC.NURSE ---
oxygenation Patient oxygen saturation reading in low 80s. nurse had patient take slow deep breaths. Oxygen increased to 96% in approximately1 minute. Pulse ox changed out by nurse. Ordered IS and informed respiratory. IS: Patient able to pull 1000 on IS. informed to use 10X per hour.
[2020-03-25] MEDS: atorvastatin 40 mg Tablet 80 MG PO (21:06)
[2020-03-26] VITALS (21 sets, daily range): BP systolic 117–145; BP diastolic 72–93; PULSE 51–78; RESP 8–18; O2SAT 85–97
[2020-03-26] MEDS: piperacillin-tazobactam 3.375 GM in sodium chloride 0.9% (plus) 50 ML IV ×2 (01:46→08:45)
[2020-03-26] MEDS: heparin 5,000 unit/mL INJ 1 mL 5000 UNIT SUBCUT (01:46)
[2020-03-26 03:59] LABS: Anion Gap 9.1 (5-19); Blood Urea Nitrogen 34 mg/dL (8-23); Calcium 8.9 mg/dL (8.5-10.5); Carbon Dioxide 31 mmol/L (22-29); Chloride 103 mmol/L (98-107); Glomerular Filtration Rate 85.8 mL/min (90-130); Glucose 132 mg/dL (65-115); Osmolality Calculated 299 mOsm/kg (285-295); Potassium 3.1 mmol/L (3.5-5.1); Sodium 140 mmol/L (136-145)
[2020-03-26] MEDS: ipratropium-albuterol 3 mL Neb INHALATION (08:08)
--- NOTE | 2020-03-26 08:36 | P.DS_ITS ---
Discharge Providers Date of Admission: 03/22/20 03:28 Date of Discharge: March 26, 2020 Attending Provider at Admission: Ama Amaro Attending Provider at Discharge: Yashira Arango MD Consults: None Primary Care Provider: Gomez Chris NP Diagnoses at Discharge Discharge Diagnosis (1) Acute hypercapnic respiratory failure: Status: Acute Permanent problem details: -Failed BiPAP support, intubated in ER and remains on ventilator support and sedation. Noted difficulty with intubation due to short thick neck -Successfully weaned off ventilator on 03/24 -Has severe PATRICIO at baseline; not oxygen dependent at baseline; anticipate need for supplemental oxygen support on discharge -on empiric antibiotics, IV steroids; switched to PO -blood culture prelim negative -sputum culture prelim normal imani -No leukocytosis, afebrile -off IVF hydration -duonebs -influenza negative, rapid COVID-19 test negative -EtOH, UDS negative; no effect after doses of narcan (2) Acute renal failure (ARF): Status: Acute Permanent problem details: -Unknown baseline as no prior labs to reference -Continue to monitor renal function closely; improved, off IVF due to concern for fluid overload -Nephrotoxins, renally dose meds -Mendoza catheter removed and has been able to void independently without difficulty -resumed diuretics, ACEi Qualifiers: Acute renal failure type: unspecified Qualified Code(s): N17.9 - Acute kidney failure, unspecified (3) Elevated troponin: Status: Acute Permanent problem details: -Noted elevated troponins with a delta of 23 -Likely secondary to demand ischemia from significant hypoxia -Echo: EF=65%, G2DD, no RWMA, trace TR, trace AR (4) Acute alteration in mental status: Status: Resolved Permanent problem details: -back to baseline mental status (5) GERD (gastroesophageal reflux disease): Status: Chronic Permanent problem details: -on PPI Qualifiers: Esophagitis presence: esophagitis presence not specified Qualified Code(s): K21.9 - Gastro-esophageal reflux disease without esophagitis (6) CVA (cerebral vascular accident): Status: Chronic Permanent problem details: -about 1 yr ago, on DAPT Qualifiers: CVA mechanism: unspecified Qualified Code(s): I63.9 - Cerebral infarction, unspecified (7) Obstructive sleep apnea: Status: Chronic Permanent problem details: -Severe PATRICIO and nocturnal hypoxemia per recent sleep study done earlier this month, home noninvasive ventilator recommended. Patient requires home noninvasive ventilator due to increasing hypercapnia. Noninvasive ventilation more effective than BiPAP to reduce CO2 levels and to prevent future readmissions due to not adequately ventilating the patient. BiPAP does not have advanced features of auto rate, continuous alarms, auto-EPAP, and advance health rules sets to prevent readmissions. Patient requires AVAPS-AE and advanced features to prevent future readmissions. Failure to use noninvasive ventilation could lead to serious health issues, decreased quality of life and put him at risk for multiple hospital readmissions. -documented chronic hypercapnic respiratory failure (8) Hyperlipidemia: Status: Chronic Permanent problem details: -on statin Qualifiers: Hyperlipidemia type: unspecified Qualified Code(s): E78.5 - Hyperlipidemia, unspecified (9) Hypertension: Status: Chronic Permanent problem details: -continue oral antihypertensives Qualifiers: Hypertension type: essential hypertension Qualified Code(s): I10 - Essential (primary) hypertension (10) Morbid obesity: Status: Chronic Permanent problem details: -BMI-39 kg/m2 Other Information Additional DC diagnoses/information: -Chronic hypercapnic respiratory failure -Chronic diastolic CHF: Echo as noted above -bilateral ulnar neuropathy at elbow; demonstrated on nerve conduction studies (11/2019); on gabapentin Reason for Visit Reason for Visit: low o2 Hospital Course Hospital Course: Patient was admitted to the ICU after having required intubation in the ER secondary to acute hypercapnic and hypoxic respiratory failure with inability to improve following doses of Narcan and trial of BiPAP. Patient was covered with IV steroids and empiric IV antibiotics and when appropriate was weaned off the ventilator on 03/24. He has required supplemental oxygen support which he is not on at baseline. He has known severe obstructive sleep apnea and documented nocturnal hypoxemia and chronic hypercapnic respiratory failure. He has been in the process of completing sleep studies and arranging for non-invasive ventilation. He will likely require supplemental oxygen support moving forward, home oxygen evaluation done prior to discharge. He has been on a trilogy at night due to severe PATRICIO with noted improvement in sleep quality and maintenance of his oxygen saturations appropriately throughout the night. Noninvasive ventilation is important for him for adequate oxygen support and to prevent future readmissions and has been ordered. He will also be referred to pulmonology for formal evaluation on discharge for continued follow-up. He did have some renal impairment acutely which has since improved. Blood cultures have been negative and sputum cultures have grown normal imani. He has been hemodynamically stable and afebrile consistently. Mendoza catheter was removed following extubation and he has been able to void independently without difficulty. He will continue empiric antibiotic therapy for several more days to complete his treatment course. He will require appropriate follow- up with his primary care provider within 1 week. He is to seek medical attention immediately should any of his symptoms recur or worsen. Discharge Summary: -Patient to follow-up with his primary care provider within 1 week -Patient to follow-up with pulmonology in 1 month Physical Exam Const: COMMON NORMALS: no acute distress, patient oriented x3 and alert GENERAL APPEARANCE: cooperative and comfortable NUTRITIONAL APPEARANCE: obese morbidly obese ORIENTATION/CONSCIOUSNESS: Yes awake OTHER: -sitting in chair by bedside, in good spirits HENMT: COMMON NORMALS: normocephalic and atraumatic HEAD & SCALP: normocephalic and atraumatic GENERAL EAR: hearing grossly impaired Eye: COMMON NORMALS: Equal, round and reactive pupils present, EOMs intact bilaterally and conjunctivae normal CONJUNCTIVA: Yes conjunctivae normal PUPIL: Yes Equal, round and reactive pupils present Neck/C-Spine: COMMON NORMALS: full ROM GENERAL: Yes trachea midline OTHER: -Short, thick neck Resp: COMMON NORMALS: normal respiratory effort, No retractions and No use of accessory muscles EFFORT & INSPECTION: Yes symmetric chest movement and No tachypneic AUSCULTATION: rhonchi and diminished lung sounds OTHER: -On 4 L NC Cardio: COMMON NORMALS: regular rate, regular rhythm, S1 normal heart sound present, S2 normal heart sound present and No murmurs present (Cardio) RATE: regular rate RHYTHM: regular rhythm HEART SOUNDS: S1 normal heart sound present and S2 normal heart sound present GI: COMMON NORMALS: Normal to inspection, nondistended, normoactive bowel sounds present, Soft to palpation and non-tender INSPECTION: Yes central obesity PALPATION: Yes Soft to palpation : BLADDER/KIDNEY EXAM: Yes catheter in place Extremity: COMMON NORMALS: normal to inspection, no clubbing, cyanosis or edema and no pedal edema Neuro: COMMON NORMALS: patient oriented x3, moves all extremities, no focal motor deficits and no sensory deficits noted SENSORIUM/ORIENTATION: Yes alert Psych: COMMON NORMALS: mental status grossly normal, cooperative and normal affect Skin: COMMON NORMALS: no rashes or lesions noted, no jaundice, no petechiae and no mottling GENERAL SKIN EXAM: no rashes or lesions noted Urinary Catheter Management^: Mendoza: Cath Placed During This Visit: yes, but has since been removed by the nurse Reason for Continuing Indwelling Catheter: Not indwelling catheter Urinary Catheter Date of Insertion: 03/22/20 Urinary Catheter Time of Insertion: 03:50 Date Urinary Catheter Removed: 03/24/20 Time Urinary Catheter Discontinued: 17:00 Discharge Data Data Completed and Pending: Completed Studies During Hospitalization Category Date Time Status CT head wo con* [id number] Stat Cat Scan 03/21/20 23:15 Completed XR chest 1V mark ble [id number] Routine Exams 03/23/20 06:00 Completed XR chest 1V mark ble [id number] Routine Exams 03/24/20 06:00 Completed XR chest 1V mark ble [id number] Stat Exams 03/21/20 23:15 Completed XR chest 1V mark ble [id number] Stat Exams 03/22/20 03:42 Completed CV echo complete* [id number] Routine Ultrasound 03/23/20 18:18 Completed Pending at discharge Category Date Time Status Blood Culture Sta t Lab 03/21/20 23:15 Results Labs from last 24 hours 03/26/20 03/21/20 03:20 23:15 A-a O2 Gradient Not Reportable Sodium 140 Potassium 3.1 L Chloride 103 Carbon Dioxide 31 H Anion Gap 9.1 BUN 34 H Creatinine 0.9 GFR Calculation 85.8 L Glucose 132 H Calculated Osmolal ity 299 H Calcium 8.9 Vitals: Last Vital Signs Temp 98.7 F 03/25/20 19:00 Pulse 70 03/26/20 08:13 Resp 18 03/26/20 08:11 BP 137/90 03/26/20 08:00 Pulse Ox 95 03/26/20 08:11 Discharge Plan Discharge Patient Disposition: Home Condition: Stable Prescriptions: New azithromycin 250 mg Tablet 500 mg PO DAILY Qty: 5 RF: 0 prednisone 20 mg Tablet 60 mg PO DAILY 5 Days Qty: 15 RF: 0 Advair Diskus 500-50 mcg/dose blister with device 1 inh INHALATION BID Qty: 60 RF: 0 Continued amlodipine-benazepril 5-20 mg capsule 1 cap PO DAILY RF: 0 gabapentin 300 mg capsule 300 mg PO TID RF: 0 atorvastatin 80 mg tablet 80 mg PO BEDTIME RF: 0 baclofen 10 mg tablet 10 mg PO TID PRN (Reason: unknown) RF: 0 chlorthalidone 25 mg tablet 25 mg PO DAILY RF: 0 clopidogrel 75 mg tablet 75 mg PO DAILY RF: 0 sertraline 50 mg tablet 50 mg PO DAILY RF: 0 pantoprazole 40 mg tablet,delayed release (DR/EC) 40 mg PO DAILY RF: 0 Multiple Vitamins Tablet 1 tab PO DAILY RF: 0 thiamine HCl (vitamin B1) 100 mg Tablet 100 mg PO DAILY RF: 0 Tylenol Extra Strength 500 mg Tablet 500 - 1,000 mg PO PRN RF: 0 Colace 100 mg Capsule 100 mg PO DAILY PRN (Reason: unknown) RF: 0 diclofenac sodium 50 mg tablet,delayed release (DR/EC) 50 mg PO TID PRN (Reason: Back Pain) RF: 0 Discharge Orders: Discharge Order (Routine); Ordered 03/26/20 Ordered By: Yashira Arango Other Ambulatory Orders: DME: Non-Invasive Vent (Order) Location: None Selected Ordered By: Yashira Arango DME: Oxygen (Order) Location: None Selected Ordered By: Yashira Arango Pulmonary Function Screen with Bronchodilator (Routine) Timeframe: 1 Month Facility: [facility] - Location: Respiratory Therapy Ordered By: Yashira Arango Referrals: Gomez Chris NP [Primary Care Provider] - 4-7 days (Post hospital discharge follow up) Keven Dorsey MD [Physician] - 1 month (Follow up for severe PATRICIO, working on setting up NIV, and chronic hypercapnic respiratory failure. ) Discharge Diet: Cardiac Discharge Activity: Increase activity as tolerated and Oxygen as instructed Activity Restrictions/Additional Instructions: -Please note that you will now require supplemental oxygen use -Please note that we are in the process of setting up a Trilogy machine for you at home for night-time use due to your history of severe obstructive sleep apnea. Discharge Attestations Time Spent in Discharge Care*: greater than 30 min Specific Discharge Activities: Specific discharge activities: educating patient, educating and/or supporting family/caregiver, discussing with case packer and sealer/social workers/dc planners, documenting/other paperwork and evaluating patient/reviewing data Status at Discharge: Cognitive status at discharge: cognitively intact , Behavioral status at discharge: cooperative and dependent in ADL's , Functional status at discharge: independent ambulation Overall status at discharge: patient is progressing back to baseline Quality Metrics Clinical Quality Measures During this hospital stay, did patient experience: None Coding Level of Care Code Acute Pantograph Ii Engraver for Chg Fwd Exam Comprehensive Diagnoses Acute hypercapnic respiratory failure J96.02 Acute renal failure (ARF) N17.9 Acute renal failure type: unspecified Elevated troponin R77.8 Acute alteration in mental status R41.82 GERD (gastroesophageal reflux disease) K21.9 Esophagitis presence: esophagitis presence not specified CVA (cerebral vascular accident) I63.9 CVA mechanism: unspecified Obstructive sleep apnea G47.33 Hyperlipidemia E78.5 Hyperlipidemia type: unspecified Hypertension I10 Hypertension type: essential hypertension Morbid obesity E66.01
[2020-03-26] MEDS: chlorthalidone 25 mg Tablet PO (08:44)
[2020-03-26] MEDS: baclofen 10 mg Tablet PO (08:44)
[2020-03-26] MEDS: sertraline 50 mg Tablet PO (08:44)
[2020-03-26] MEDS: pantoprazole DR 40 mg Tablet PO (08:45)
[2020-03-26] MEDS: gabapentin 300 mg Capsule PO (08:45)
[2020-03-26] MEDS: azithromycin 250 mg Tablet 500 MG PO (08:45)
[2020-03-26] MEDS: potassium chloride ER 10 mEq Tablet 40 MEQ PO (08:45)
[2020-03-26] MEDS: lisinopril 5 mg Tablet PO (08:45)
[2020-03-26] MEDS: predniSONE 20 mg Tablet 60 MG PO (08:45)
[2020-03-26] MEDS: amlodipine 5 mg Tablet PO (08:45)
[2020-03-26] MEDS: clopidogrel 75 mg Tablet PO (08:45)
--- NOTE | 2020-03-26 09:06 | PC.CHAP ---
Pastoral Care Encounter/Spiritual Assessment Type of Contact [] Declined instructional interventionist visit [] Patient/Family/Request visit [] Outpatient visit [] Follow-up visit [] Physician referral [] Code/Alert [x] Routine visit [] Staff referral [] Actively dying [] Patient sleeping [] Family support [] [] Out of room [] Palliative care [] [] Receiving care in room [] Pre-surgical visit [] Trauma [] Long length of stay [] ICU visit [] Other: Relational/Emotional Strength [] Patient feels connected with others/family/visitors/staff [] Distress [] Loneliness/isolation [] Abandonment Spirituality of Patient [] Person of Riya [] Attends Synagogue of their Riya [] Believes in Prayer [] Reads Bible or Zoroastrianism materials [] There are Spiritual issues to be addressed [employer] Interventions [x] Prayer [x] Active listening [x] Non-anxious presence [x] Spiritual/emotional support [] Crisis/trauma care [] Spiritual counseling [] Bereavement support [] Provided bereavement packet [] Provided Bible/devotional materials [] Provided toy/stuffed animal, coloring book to patient or family member [] Provided Communion [] Anointing/[place] [] Salvation [x] Completed spiritual assessment [] Other: Impact on Illness or Injury [] Angry [] Fearful [] Anxious [] Often cries [] Exhaustion [] Unable to work [] Unable to attend restorationist [] Unable to walk/stand [] Unable to read [] Unable to drive [] Unable to eat/drink [] Unable to sleep [] Unable to be with family [] Patient intubated [] Other: Summary patients color much better... breathing improving Time spent with patient 10 min
--- NOTE | 2020-03-26 12:48 | PC.NURSE ---
Patient wheeled to private vehicle, oxygen on patient. friend driving. Patient again educated on d/c instructions and appointments. No further questions.
--- NOTE | 2020-03-26 14:23 | PC.NURSE ---
Discharge instructions given to patient. Patient has understanding of instructions. No questions. Trilogy to be set up at a later date. IV's removed. Belongings with patient. Patient wheeled to private vehicle with home oxygen on and working. Pt driven home by son.
== END 2020-03-26 14:25 | disposition home or self-care (01) | DRG 208 ==
LOC: ER 23:31 → ICU 03-22 03:34
PROVIDERS: Emergency Medicine; Admitting Provider Hospitalist; PCP Nurse Practitioner Family; Visit Provider Family Medicine
DX: J96.02 Acute respiratory failure with hypercapnia (principal); N17.9 Acute kidney failure, unspecified; I50.32 Chronic diastolic (congestive) heart failure; J96.12 Chronic respiratory failure with hypercapnia; E66.01 Morbid (severe) obesity due to excess calories; Z86.73 Personal history of transient ischemic attack (TIA), and cerebral infarction without residual deficits; R77.8 Other specified abnormalities of plasma proteins; K21.9 Gastro-esophageal reflux disease without esophagitis; E78.5 Hyperlipidemia, unspecified; G47.33 Obstructive sleep apnea (adult) (pediatric); Z68.39 Body mass index [BMI] 39.0-39.9, adult; I11.0 Hypertensive heart disease with heart failure; G62.9 Polyneuropathy, unspecified; Z79.02 Long term (current) use of antithrombotics/antiplatelets; F41.8 Other specified anxiety disorders
CPT/HCPCS: 12345; 31500; 36415; 36600; 51702; 70450; 71045; 80048; 80051; 80053; 80306; 80307; 81003; 82140; 82330; 82803; 82805; 83605; 83690; 83735; 83880; 84484; 85025; 85610; 87040; 87070; 87426; 87804; 92523; 92610; 93005; 93306; 94002; 94003; 94640; 94660; 94760; 94799; 96372; 96375; 97110; 97116; 97163; 97530; 99285; C9113; J0330; J0456; J1100; J1644; J1940; J2060; J2310; J2405; J2543; J2704; J2930; J3490; J7030; J7050; J7512; Q0144

== ENCOUNTER 2020-03-27 12:23 | Outpatient (CLI) | payer MEDICAID, SELFPAY ==
--- NOTE | 2020-03-27 14:42 | PFTS_ITS ---
Date of Study:04/10/20 Date of Dictation: 04/10/2020 MECHANICS: Forced vital capacity (FVC) is reduced 62% Forced expiratory volume in one second (FEV1) is reduced 61% FEV1/FVC is normal 76 Significant response to bronchodilator FLOW VOLUME LOOP: Normal . LUNG VOLUMES: Not measured DIFFUSING CAPACITY FOR CARBON MONOXIDE: Not measured . INTERPRETATION: The spirometry appears consistent with restrictive lung disease. There is significant response to bronchodilators. Please correlate clinically. MTDD
== END 2020-03-27 12:24 | disposition home or self-care (01) ==
LOC: RT 12:28
PROVIDERS: PCP Nurse Practitioner Family; Visit Provider Family Medicine
DX: J96.02 Acute respiratory failure with hypercapnia (principal)
CPT/HCPCS: 94060; J7611

== ENCOUNTER → 2020-07-22 12:36 | Outpatient (BNVA) | payer MEDICAID, SELFPAY | PROVIDERS: PCP Nurse Practitioner Family; Referring Provider Nurse Practitioner Family; Visit Provider Anesthesiology Pain Medicine | DX: M54.41 Lumbago with sciatica, right side (principal); M47.816 Spondylosis without myelopathy or radiculopathy, lumbar region; M54.16 Radiculopathy, lumbar region; M54.9 Dorsalgia, unspecified; F17.210 Nicotine dependence, cigarettes, uncomplicated; Z79.891 Long term (current) use of opiate analgesic | CPT/HCPCS: 99204 ==

== ENCOUNTER 2020-08-12 09:09 | Outpatient (CLI) | payer MEDICAID, SELFPAY ==
--- NOTE | 2020-08-12 09:24 | MR_ITS ---
WS: [id number] MRI LUMBAR SPINE NONCONTRAST HISTORY: M54.16 - Radiculopathy, lumbar region COMPARISON: None available. TECHNIQUE: Sagittal and axial multisequence imaging is submitted. T4 and T11 hemangiomas. At the T6-7 level there is increased T2 and fluid like signal in the thoracic cord and there is also deviation of the thoracic cord which may be due to adhesions or an arachnoid cyst. Straightening of the normal lumbar lordosis. No marrow edema or fracture. Mild disc desiccation throughout the lumbar spine. Conus terminates normally at L1-2 disc level. L1-L2: Mild facet arthritis. Very slight narrowing of the foramen. L2-L3: Mild annular disc bulging with facet and ligamentum flavum hypertrophy. Mild bilateral foramin al stenosis. L3-L4: Diffuse annular disc bulging with mild osteophytic ridging and mild facet joint arthritis. Mil d central and bilateral foraminal stenosis. L4-L5: Mild annular disc bulging and osteophytic ridging. Moderate facet joint arthritis and fluid in the facet joints. No focal disc protrusion. Mild bilateral foraminal stenosis without central stenos is. L5-S1: Very slight annular disc bulging. Increase fluid in the facet joints bilaterally. No high-grad e central stenosis. Mild bilateral foraminal stenosis. Paravertebral soft tissues are normal. MR/MR lumbar spine wo con* [id number] IMPRESSION: 1. No high-grade central or foraminal stenosis. 2. Multilevel bilateral mild foraminal stenosis from L1-2 through L5-S1 predom inantly due to osteophyte and facet arthritis. 3. Mild central stenosis at L4-5. 4. Possible short syrinx in the thoracic cord at the T6-7 level with slight de viation and tethering of the thoracic cord which may be due to adhesions. Consi estelle follow-up MRI thoracic spine with and without IV contrast for further evalu ation and to exclude mass.
--- NOTE | 2020-08-12 09:30 | XRR_ITS ---
PROCEDURE INFORMATION: Exam: XR Lumbosacral Spine Exam date and time: 08/12/2020 10:18 AM Age: 60 years old Clinical indication: Patient HX: Low back pain after stroke 03/11/20; Additional info: M47.816 - spondylosis without myelopathy or radiculopathy, lumbar region TECHNIQUE: Imaging protocol: XR of the lumbosacral spine. Views: 2 or 3 views. COMPARISON: MR lumbar spine wo con* [id number] 08/12/2020 9:48 AM FINDINGS: Bones/joints: Neutral lateral view the demonstrates physiologic vertebral alignment. No instability demonstrated on the flexion/extension views. Intervertebral disc heights are preserved at all levels. Small anterolateral degenerative enthesophytes are noted at L1-L2, L3-L4, and L4-L5. Mild degenerative facet joint changes are noted in the lower lumbar spine. Soft tissues: Unremarkable. XR/XR lumbar spine f/e only [id number] IMPRESSION: 1. No instability demonstrated on the flexion/extension views. 2. No acute abnormality demonstrated.
== END 2020-08-12 09:10 | disposition home or self-care (01) ==
LOC: RADWPI 09:11
PROVIDERS: PCP Nurse Practitioner Family; Visit Provider Anesthesiology Pain Medicine
DX: M47.816 Spondylosis without myelopathy or radiculopathy, lumbar region (principal); M54.16 Radiculopathy, lumbar region; M48.061 Spinal stenosis, lumbar region without neurogenic claudication; M48.07 Spinal stenosis, lumbosacral region
CPT/HCPCS: 72120; 72148

== ENCOUNTER → 2020-08-14 09:23 | Outpatient (BNVA) | payer MEDICAID, SELFPAY | PROVIDERS: PCP Nurse Practitioner Family; Visit Provider Anesthesiology Pain Medicine | DX: M54.41 Lumbago with sciatica, right side (principal); Q06.9 Congenital malformation of spinal cord, unspecified; M54.9 Dorsalgia, unspecified; M47.816 Spondylosis without myelopathy or radiculopathy, lumbar region; M54.16 Radiculopathy, lumbar region; S67.20XA Crushing injury of unspecified hand, initial encounter; F17.210 Nicotine dependence, cigarettes, uncomplicated | CPT/HCPCS: 99215 ==

== ENCOUNTER → 2020-08-19 13:50 | Outpatient (BNVA) | payer MEDICAID, SELFPAY | PROVIDERS: PCP Nurse Practitioner Family; Visit Provider Anesthesiology Pain Medicine | DX: M54.16 Radiculopathy, lumbar region (principal); M54.9 Dorsalgia, unspecified | CPT/HCPCS: 64483; 64484; J1100; J3490 ==

== ENCOUNTER → 2020-09-02 09:19 | Outpatient (BNVA) | payer MEDICAID, SELFPAY | PROVIDERS: PCP Nurse Practitioner Family; Visit Provider Anesthesiology Pain Medicine | DX: M54.9 Dorsalgia, unspecified (principal); M47.816 Spondylosis without myelopathy or radiculopathy, lumbar region; M54.16 Radiculopathy, lumbar region; Q06.9 Congenital malformation of spinal cord, unspecified; S67.20XA Crushing injury of unspecified hand, initial encounter; X58.XXXA Exposure to other specified factors, initial encounter | CPT/HCPCS: 99213 ==

== ENCOUNTER 2020-10-30 13:36 | Outpatient (CLI) | payer MEDICAID, SELFPAY ==
--- NOTE | 2020-10-30 13:40 | CT_ITS ---
WS: [id number] LDCT LUNG CANCER SCREENING HISTORY: HX OF TOBACCO USE TECHNIQUE: Axial imaging performed from the apices to 1 cm below the costophrenic angles. Coronal and sagittal reformats are submitted with axial MIP series. All CT scans at [facility] use at least one of these dose optimization techniques: automated exposure control; mA and/or kV adjustment per patient size (includes targeted exams where dose is matched to clinical indication); or iterativ e reconstruction. DLP: 54.58 mGy.cm DIvol: 1.58 mGy COMPARISON: None available. Diagnostic quality: Satisfactory Lung Nodules: 5 mm noncalcified pulmonary nodule in the RIGHT lower lobe, image 151 of series 3. No e ndobronchial lesions. Lungs: No pneumonia. Heart: Normal size heart. No pericardial effusion. Other findings: None. CT/CT lung screening [id number] IMPRESSION: LUNG-RADS: 2-Benign Appearance or Behavior FOLLOW UP: 12 Month: Continue annual screening with LDCT OTHER FINDINGS (S MODIFIER): None.
== END 2020-10-30 13:37 | disposition home or self-care (01) ==
LOC: RAD 13:38
PROVIDERS: PCP Nurse Practitioner Family; Visit Provider Internal Medicine Critical Care Medicine
DX: Z12.2 Encounter for screening for malignant neoplasm of respiratory organs (principal); Z87.891 Personal history of nicotine dependence; R91.1 Solitary pulmonary nodule
CPT/HCPCS: 71271

== ENCOUNTER 2021-01-07 12:06 | Outpatient (CLI) | payer MEDICAID, SELFPAY ==
[2021-01-07 12:42] LABS: ABG PCO2 45.1 mmHg (35-45); ABG PH Result 7.39 (7.35-7.45); Alveolar-Arterial Oxygen Gradi 2.5 mmHg (5-10); Arterial Blood Gas Hematocrit 40.6 % (42-52); Base Excess ABG 1.7 mmol/L (-2.0-2.0); Blood Gas Allen Test Pos; Blood Gas Operator Identificat ED; Blood Gas Sample Site Radial, right; Blood Gas Sample Type Arterial; Carboxyhemoglobin 3.2 %THgb (0.4-20.1); HCO3 ABG 27.2 mmol/L (22-26); HGB O2 Sat 92.2 % (95-100); Ionized Calcium Level - ABG 1.3 mmol/L (1.1-1.4); Methemoglobin 1.1 % (0.4-1.5); Oxygen Device ROOM AIR; Oxygen Saturation ABG 96.3; PO2 ABG 75.1 mmHg (80.0-100.0); Total Hemoglobin 13.2 g/dL (14-18)
== END 2021-01-07 12:07 | disposition home or self-care (01) ==
PROVIDERS: PCP Nurse Practitioner Family; Visit Provider Nurse Practitioner Family
DX: J96.11 Chronic respiratory failure with hypoxia (principal); G47.33 Obstructive sleep apnea (adult) (pediatric)
CPT/HCPCS: 36600; 80051; 82330; 82805

== ENCOUNTER 2021-04-27 15:39 | Observation (INO) | payer MEDICAID, SELFPAY ==
[2021-04-27] VITALS (13 sets, daily range): BP systolic 117–127; BP diastolic 68–80; PULSE 71–88; RESP 12–22; TEMP 36.3–37.1; O2SAT 81–96; BMI 41.1
--- NOTE | 2021-04-27 15:54 | ECG_ITS ---
[facility] Test Date: 2021-04-27 Pat Name: Richard Inman Department: Room: Gender: Male Extracorporeal Circulation Specialist: : 1960 Requested By: Kenney Parrish Order Number: [id number] Reading MD: Daniel Chavira M.D. Measurements Intervals [place] Rate: 82 P: 23 MN: 188 QRS: 67 QRSD: 78 T: 64 QT: 353 QTc: 414 Interpretive Statements SINUS RHYTHM Compared to ECG 03/22/2020 05:27:07 Sinus bradycardia no longer present Indeterminate axis no longer present Electronically Signed On 04-28-2021 16:59:52 INTAKE ASSESSOR by Daniel Chavira M.D. [email or web address]
--- NOTE | 2021-04-27 15:54 | XRR_ITS ---
PROCEDURE INFORMATION: Exam: XR Chest Exam date and time: 04/27/2021 3:54 PM Age: 61 years old Clinical indication: Shortness of breath; Patient HX: SOB - resp failure; Additional info: Dyspnea TECHNIQUE: Imaging protocol: XR of the chest. Views: 1 view. COMPARISON: CR XR chest 1V portable [id number] 03/24/2020 4:51 AM FINDINGS: Lungs: Airspace opacity in the lingula. The right lung is clear. Pleural spaces: Small left pleural effusion. No pneumothorax. Heart/Mediastinum: Mild cardiomegaly. Bones/joints: Unremarkable. XR/XR chest 1V portable [id number] IMPRESSION: 1. Airspace opacity in the lingula could represent pneumonia or aspiration. 2. Small left pleural effusion. Radiation Dose CTDIVOL = (mGy): DLP = (mGy-cm)
--- NOTE | 2021-04-27 16:06 | ED_ITS ---
HPI - General Adult General: Chief complaint: Shortness of Breath/Dyspnea Stated complaint: LOW 02 Time Seen by Provider: 04/27/21 15:53 History of Present Illness: HPI narrative: Patient is a 61-year-old male with a history of severe obstructive sleep apnea on home CPAP and 4L of oxygen at abseline, prior hypercapnic respiratory failure, diastolic heart failure grade 2 presents emergency room with dyspnea and hypoxemia since this AM. His woke him up this morning noticed the patient was not acting like himself. Patient's noted the patient was satting at 46% on room air department for home Lasix and called EMS. By the time EMS arrived, patient was placed on 4 L nasal cannula and with O2 sat increased to 88%. Reports cough for last 2 days reports swelling in the legs bilaterally. Denies any history of smoking, COPD or asthma. Patient denies any nausea/vomiting, fever/chills, abdominal complaints, complaints, cough, runny nose, sore throat. Onset: earlier this AM Duration: ongoing Location: home Severity:moderate Review of Systems Narrative: Constitutional: No fever, no chills. HEENT: No vision changes CV: No chest pain, no palpitations PULM: +cough, +dyspnea. GI: No abdominal pain, no N/V/D. : No dysuria MSKEL: No muscle pain SKIN: No new rashes, no lesions. NEURO: No headache, no focal weakness. HEME: No visible bruises PSYCH: Normal mood PFS ED PFSH: Medical History (Updated 04/27/21 @ 16:00 by Kenney Parrish MD) Acute hypercapnic respiratory failure Chronic diastolic CHF (congestive heart failure) Chronic hypercapnic respiratory failure CVA (cerebral vascular accident) -about 1 yr ago, on DAPT Depression with anxiety GERD (gastroesophageal reflux disease) -on PPI Hyperlipidemia -on statin Hypertension -continue oral antihypertensives Morbid obesity -BMI-39 kg/m2 Obstructive sleep apnea Ulnar neuropathy of both upper extremities Social History Smoking and tobacco status: former smoker Quit status (tobacco): has quit using tobacco Year quit tobacco: 2019 - 1PPD x 40 Years Second hand smoke exposure: No Alcohol intake: current Alcohol intake frequency: few times a week Alcohol type: beer Lives independently: Yes Household members: spouse Marital status: Current occupational status: disabled History of recent travel: No Current gender identity: Male Physical Exam Narrative: EXAM NARRATIVE: Head: Atraumatic Eyes: PERRL, conjunctiva without injection ENT: Mucous membrane moist NECK: Supple, ROM intact LUNGS: +coarse breath sounds b/l CV: RRR ABDOMEN: Soft, no focal TTP. NO guarding rebound, guarding, rigidity. No CVA tenderness to percussion. Neg Gonzalez/Neg McBurney's point tenderness, no suprabupic tenderness to palpation. EXTREMITY: Normal ROM, 1+ edema b/l SKIN: No rash or erythema NEURO: AAOx3, GCS 15, no focal weakness PSYCH: Normal mood and affect Course Vital Signs: Vital signs: Vital Signs Temperature 98.8 F 04/27/21 15:45 Pulse Rate 82 04/27/21 16:24 Respiratory Rate 15 04/27/21 16:24 Blood Pressure 127/75 04/27/21 16:24 Pulse Oximetry 86 L 04/27/21 17:00 MDM - General Adult MDM Narrative: Medical decision making narrative: Patient is a 61-year-old male with history of prior hypercapnic respiratory failure requiring intubation, severe struct obstructive sleep apnea, and diastolic heart failure presented to emergency room with hypoxemia and dyspnea since this morning. On arrival, patient satting at 88% on room air. He has coarse breath sounds bilaterally with mild 1+ edema in the lower extremity. These are consistent with the hypoxemia on ABG. Iy id unclear what is the cause of patient's hypoxemia at this time. S/p duoneb treatments and lasix 40mg. XR clear. Dimer wnl. BNP of 2K. Patient will be admitted for respiratory distress and hypxoemia. Lab Data: Labs: Lab Results 04/27/21 04/27/21 04/27/21 15:55 15:55 15:55 WBC 8.9 10^3/uL 10^3/ uL (4.0-10.0) RBC 4.18 10^6/uL 10^6 /uL (4.1-5.3) Hgb 11.6 g/dL L g/dL (11.7-16.6) Hct 40.3 % L % (42.0-52.0) MCV 96.4 fl H fl (80-94) MCH 27.8 pg L pg (28.0-34.0) MCHC 28.8 g/dL L g/dL (30.0-36.0) RDW 14.3 % % (12.1-15.1) Plt Count 242 10^3/cmm 10^3 /cmm (130-400) MPV 9.3 fL fL (7.4-10.4) Neut % (Auto) 77.1 % % Lymph % (Auto) 11.9 % % [place] % (Auto) 9.3 % % Eos % (Auto) 0.3 % % Baso % (Auto) 0.4 % % Neut # (Auto) 6.87 10^3/uL 10^3 /uL (1.8-7.7) Lymph # (Auto) 1.1 10^3/uL 10^3/ uL (0.8-4.8) [place] # (Auto) 0.8 10^3/uL 10^3/ uL (0.2-0.9) Eos # (Auto) 0.0 10^3/uL 10^3/ uL (0.0-0.8) Baso # (Auto) 0.0 10^3/uL 10^3/ uL (0.0-0.1) Nucleated RBC % (a uto) 0.4 % % Nucleated RBCs # 0.0 /100WBC /100W BC D-Dimer Specimen Type Sample Site ABG pH ABG pO2 ABG HCO3 ABG O2 Saturation ABG Base Excess Kai Test Hematocrit Hgb O2 Saturation Carboxyhemoglobin Methemoglobin Total Hemoglobin Ionized Calcium O2 Delivery Device O2 Liters/Min Cargo Inspector ID Sodium 145 mmol/L mmol/L (136-145) Potassium 4.8 mmol/L mmol/L (3.5-5.1) Chloride 106 mmol/L mmol/L (98-107) Carbon Dioxide 31 mmol/L H mmol/ L (22-29) Anion Gap 12.8 (5-19) BUN 14 mg/dL mg/dL (8-23) Creatinine 0.9 mg/dL mg/dL (0.7-1.2) GFR Calculation 85.5 mL/min L mL/ min (90-130) Glucose 97 mg/dL mg/dL (65-115) Calculated Osmolal ity 300 mOsm/kg H mOs m/kg (285-295) Calcium 8.2 mg/dL L mg/dL (8.5-10.5) Total Bilirubin 0.2 mg/dL mg/dL (0.15-1.2) AST 11 U/L U/L (0-40) ALT 17 U/L U/L (0-41) Alkaline Phosphata se 51 IU/L IU/L (40-130) Troponin T Baselin e 42 ng/L H ng/L (0-15) NT-Pro-B Natriuret Pep 2402 pg/mL H pg/m L (0-125) Total Protein 6.2 g/dL L g/dL (6.6-8.7) Albumin 4.0 g/dL g/dL (3.5-5.2) Globulin 2.2 g/dL g/dL (1.3-4.6) Lipase 27 U/L U/L (13-60) 04/27/21 04/27/21 15:55 16:00 WBC RBC Hgb Hct MCV MCH MCHC RDW Plt Count MPV Neut % (Auto) Lymph % (Auto) [place] % (Auto) Eos % (Auto) Baso % (Auto) Neut # (Auto) Lymph # (Auto) [place] # (Auto) Eos # (Auto) Baso # (Auto) Nucleated RBC % (a uto) Nucleated RBCs # D-Dimer <= 0.27 ug/mIFEU ug/mIFEU (0-0.59) Specimen Type Arterial Sample Site Radial, left ABG pH 7.31 L (7.35-7.45) ABG pO2 85.9 mmHg mmHg (80.0-100.0) ABG HCO3 32.3 mmol/L H mmo l/L (22-26) ABG O2 Saturation 95.1 ABG Base Excess 4.4 mmol/L H mmol /L (-2.0-2.0) Kai Test Pos Hematocrit 36.0 % L % (42-52) Hgb O2 Saturation 92.8 % L % (95-100) Carboxyhemoglobin 1.4 %THgb %THgb (0.4-20.1) Methemoglobin 1.1 % % (0.4-1.5) Total Hemoglobin 11.7 g/dL L g/dL (14-18) Ionized Calcium 1.2 mmol/L mmol/L (1.1-1.4) O2 Delivery Device Nrb O2 Liters/Min 10.0 % % Cargo Inspector ID Rieri Sodium 145.0 mmol/L H mm ol/L (131-143) Potassium 4.4 mmol/L mmol/L (3.5-5.0) Chloride Carbon Dioxide Anion Gap BUN Creatinine GFR Calculation Glucose 101.0 mg/dL mg/dL (70-115) Calculated Osmolal ity Calcium Total Bilirubin AST ALT Alkaline Phosphata se Troponin T Baselin e NT-Pro-B Natriuret Pep Total Protein Albumin Globulin Lipase Imaging Data^: Other Imaging: Radiologist's impression: [employer] [place], [place] [address]YRel ReportSigned Patient: Richard Inman #: [id number]: 9Acct#:OV [id number]/Sex: 61 / MADM Date: [facility]/27/21[facility]:Attending Dr: Ordering Provider/Ordering MD: Kenney Parrish MD Date of Service: 04/27/21 Procedure(s): XR chest 1V portable [id number] Accession Number(s): [id number] Report Number: [id number] PROCEDURE INFORMATION: Exam: XR Chest Exam date and time: 04/27/2021 3:54 PM Age: 61 years old Clinical indication: Shortness of breath; Patient HX: SOB - resp failure; Additional info: Dyspnea TECHNIQUE: Imaging protocol: XR of the chest. Views: 1 view. COMPARISON: CR XR chest 1V portable [id number] 03/24/2020 4:51 AM FINDINGS: Lungs: Airspace opacity in the lingula. The right lung is clear. Pleural spaces: Small left pleural effusion. No pneumothorax. Heart/Mediastinum: Mild cardiomegaly. Bones/joints: Unremarkable. XR/XR chest 1V portable [id number] IMPRESSION: 1. Airspace opacity in the lingula could represent pneumonia or aspiration. 2. Small left pleural effusion. Radiation Dose CTDIVOL = (mGy): DLP = (mGy-cm) Dictated By:John Ferreira By:John Ferreira Date/Time:04/27/21 1703DD/ 1554 Discharge Plan Discharge Patient Disposition: Admitted As Inpatient Clinical Impression: Acute respiratory distress, Dyspnea Condition: Stable Coding Level of Care Code ED Map Drafter for Misty Aguila
[2021-04-27 16:08] LABS: ABG PH Result 7.31 (7.35-7.45); Base Excess ABG 4.4 mmol/L (-2.0-2.0); Blood Gas Allen Test Pos; Blood Gas Sample Site Radial, left; Blood Gas Sample Type Arterial; Carboxyhemoglobin 1.4 %THgb (0.4-20.1); HCO3 ABG 32.3 mmol/L (22-26); HGB O2 Sat 92.8 % (95-100); Ionized Calcium Level - ABG 1.2 mmol/L (1.1-1.4); Methemoglobin 1.1 % (0.4-1.5); Oxygen Device NRB; Oxygen Saturation ABG 95.1; PO2 ABG 85.9 mmHg (80.0-100.0); Potassium Level - ABG 4.4 mmol/L (3.5-5.0); Total Hemoglobin 11.7 g/dL (14-18)
[2021-04-27 16:09] LABS: Basophils % 0.4 %; Eosinophils % 0.3 %; Hematocrit 40.3 % (42.0-52.0); Hemoglobin 11.6 g/dL (11.7-16.6); Lymphocytes # 1.1 10^3/uL (0.8-4.8); Lymphocytes % 11.9 %; Mean Corpuscular HGB Conc 28.8 g/dL (30.0-36.0); Mean Corpuscular Hemoglobin 27.8 pg (28.0-34.0); Mean Corpuscular Volume 96.4 fl (80-94); Mean Platelet Volume 9.3 fL (7.4-10.4); Monocytes # 0.8 10^3/uL (0.2-0.9); Monocytes % 9.3 %; Neutrophils # 6.87 10^3/uL (1.8-7.7); Neutrophils % 77.1 %; Nucleated Red Blood Cells % 0.4 %; Platelet Count 242 10^3/cmm (130-400); Red Blood Count 4.18 10^6/uL (4.1-5.3); Red Cell Distribution Width 14.3 % (12.1-15.1); White Blood Count 8.9 10^3/uL (4.0-10.0)
[2021-04-27 16:33] LABS: D Dimer <= 0.27 ug/mIFEU (0-0.59)
[2021-04-27 16:34] LABS: Troponin(5th) Baseline 42 ng/L (0-15)
[2021-04-27 16:42] LABS: Alanine Aminotransferase 17 U/L (0-41); Alkaline Phosphatase 51 IU/L (40-130); Anion Gap 12.8 (5-19); Aspartate Amino Transferase 11 U/L (0-40); Blood Urea Nitrogen 14 mg/dL (8-23); Calcium 8.2 mg/dL (8.5-10.5); Carbon Dioxide 31 mmol/L (22-29); Chloride 106 mmol/L (98-107); Globulin 2.2 g/dL (1.3-4.6); Glomerular Filtration Rate 85.5 mL/min (90-130); Glucose 97 mg/dL (65-115); Lipase 27 U/L (13-60); NT Pro B Type Natriuretic Pept 2402 pg/mL (0-125); Osmolality Calculated 300 mOsm/kg (285-295); Potassium 4.8 mmol/L (3.5-5.1); Sodium 145 mmol/L (136-145); Total Bilirubin 0.2 mg/dL (0.15-1.2); Total Protein 6.2 g/dL (6.6-8.7)
[2021-04-27 17:30] LABS: ABG PCO2 64.4 mmHg (35-45)
--- NOTE | 2021-04-27 17:56 | ECG_ITS ---
[facility] Test Date: 2021-04-27 Pat Name: Richard Inman Department: Room: Gender: Male Principal Gifts Officer: : 1960 Requested By: Jaylon Be Order Number: [id number] Kunal MD: Daniel Chavira M.D. Measurements Intervals [place] Rate: 71 P: 36 MS: 185 QRS: 65 QRSD: 86 T: 70 QT: 371 QTc: 405 Interpretive Statements SINUS RHYTHM Compared to ECG 04/27/2021 16:00:49 No significant changes Electronically Signed On 04-28-2021 16:59:46 CREATIVE/ART DIRECTOR by Daniel Chavira M.D. [id number]
--- NOTE | 2021-04-27 17:57 | PM.HP ---
Providers/Chief Complaint Primary Care Provider: Gomez Chris NP Chief Complaint: LOW 02 History of Present Illness Richard Inman is a 61 year old male with a past medical history of obesity hypoventilation syndrome, small airway disease, struct of sleep apnea, acute on chronic hypercapnic respiratory failure, greater than [id number] history of smoking, currently on AVAPS, home trilogy machine, grade 2 diastolic dysfunction, history of CVA, hypertension, hyperlipidemia, who presents to [facility] due to complaints of short increasing shortness of breath, increasing confusion, increased somnolence. Patient tells me for the last 2 weeks, he has been progressively increasingly short of breath, increasingly confused, increasingly more somnolent. He tells her that he is on home trilogy machine and is compliant with his machine, he does have had his trilogy machine he was sleep for 2 to 3 days without waking up, now recently has been noticing that he has been waking up in the middle of the afternoon, much more sleepy, he does not [employer] is coming up to see replace his machine, denies it being broken but he tells me that he stated that it is old and needs to be replaced. Has a cough, no fevers, no chills, no nausea, no vomiting. Denies any lightheadedness or any dizziness. No chest pain, no palpitations. Does experience more bilateral extremity edema has received both Covid vaccinations. Review of Systems Const: Denies: fever(s), chills, fatigue or malaise Eyes: Denies: change in vision or blurry vision ENMT: Denies: nasal congestion Card: Denies: chest pain or palpitations Resp: Reports: dyspnea and productive cough; Denies: non-productive cough or wheezing GI: Denies: abdominal pain, nausea, vomiting, hematemesis, diarrhea, constipation, hematochezia or melena : Denies: flank pain, difficulty urinating, dysuria or urinary frequency Musc: Denies: neck pain or back pain Skin/Breast: Denies: rash Neuro: Denies: headache(s), dizziness or vertigo Psych: Denies: anxiety Endo: Denies: polyuria or polydipsia Medications/Allergies Home Medications Medication Instructions Recorded Confirmed Last Taken Type amlodipine-benazepril 1 cap PO DAILY 03/22/20 04/27/2121 History atorvastatin 80 mg PO BEDTIME 03/22/20 04/27/21 04/26/21 History baclofen 10 mg PO TID PRN 03/22/20 04/27/21 Unknown History clopidogrel 75 mg PO DAILY 03/22/20 04/27/21 04/26/21 History gabapentin 300 mg PO TID 03/22/20 04/27/21 04/26/21 History pantoprazole 40 mg PO DAILY 03/22/20 04/27/21 04/26/21 History sertraline 50 mg PO DAILY 03/22/20 04/27/21 04/26/21 History acetaminophen [Tylenol Extra 500 - 1,000 mg PO PRN 03/23/20 04/27/21 Unknown History Strength] diclofenac sodium 50 mg PO TID PRN 03/23/20 04/27/21 Unknown History docusate sodium [Colace] 100 mg PO DAILY PRN 03/23/20 04/27/21 Unknown History multivitamin [Multiple Vitamins] 1 tab PO DAILY 03/23/20 04/27/21 04/26/21 History tiotropium 2.5 mcg-olodaterol 2.5 See Rx Instructions .ROUTE 12/30/20 04/27/21 04/26/21 Rx mcg/actuation mist for inhalation .COMPLEX #4 g cyanocobalamin (vitamin B-12) 50 mcg PO DAILY 04/27/21 04/27/21 04/26/21 History [Vitamin B-12] fenofibrate 54 mg PO DAILY 04/27/21 04/27/21 04/26/21 History furosemide 20 mg PO DAILY 04/27/21 04/27/21 04/26/21 History Allergies Allergy/AdvReac Type Severity Reaction Status Date / Time No Known Allergies Allergy Verified 04/27/21 15:48 PFSH Acute PFSH: Medical History (Updated 04/27/21 @ 18:01 by Jaylon Be MD) Acute hypercapnic respiratory failure Chronic diastolic CHF (congestive heart failure) Chronic hypercapnic respiratory failure CVA (cerebral vascular accident) -about 1 yr ago, on DAPT Depression with anxiety GERD (gastroesophageal reflux disease) -on PPI Hyperlipidemia -on statin Hypertension -continue oral antihypertensives Morbid obesity -BMI-39 kg/m2 Obstructive sleep apnea Ulnar neuropathy of both upper extremities Social History Smoking and tobacco status: former smoker Quit status (tobacco): has quit using tobacco Year quit tobacco: 2019 - 1PPD x 40 Years Second hand smoke exposure: No Alcohol intake: current Alcohol intake frequency: few times a week Alcohol type: beer Lives independently: Yes Household members: spouse Marital status: Current occupational status: disabled History of recent travel: No Current gender identity: Male Vitals/I&O/Wt Last Vital Signs Temp 98.8 F 04/27/21 15:45 Pulse 88 04/27/21 17:56 Resp 15 04/27/21 17:56 BP 117/68 04/27/21 17:56 Pulse Ox 94 04/27/21 17:56 Weight last 48 hrs Weight 113.398 kg Physical Exam Const: COMMON NORMALS: no acute distress and patient oriented x3 GENERAL APPEARANCE: cooperative and comfortable HENMT: COMMON NORMALS: normocephalic HEAD & SCALP: normocephalic Eye: COMMON NORMALS: Equal, round and reactive pupils present and EOMs intact bilaterally GENERAL EYE: appearance normal, both eyes and all related structures PUPIL: Yes Equal, round and reactive pupils present Neck/C-Spine: COMMON NORMALS: full ROM THYROID: Thyroid normal Lymph: LYMPHATIC: no lymphadenopathy noted Resp: COMMON NORMALS: normal respiratory effort, No retractions, No use of accessory muscles and clear to auscultation bilaterally AUSCULTATION: clear to auscultation bilaterally Cardio: COMMON NORMALS: regular rate, regular rhythm, S1 normal heart sound present, S2 normal heart sound present, No gallops present (Cardio), No clicks present (Cardio) and No murmurs present (Cardio) RATE: regular rate RHYTHM: regular rhythm HEART SOUNDS: S1 normal heart sound present and S2 normal heart sound present GI: COMMON NORMALS: Normal to inspection, nondistended, normoactive bowel sounds present, Soft to palpation, non-tender and No hepatosplenomegaly present PALPATION: Yes Soft to palpation and Yes No hepatosplenomegaly present Extremity: COMMON NORMALS: normal to inspection and full ROM NARRATIVE EXTREMITY EXAM: 1+ pitting edema bilateral extremities Neuro: COMMON NORMALS: patient oriented x3, CN's II-XII intact bilaterally, moves all extremities and no focal motor deficits Psych: COMMON NORMALS: mental status grossly normal, Normal thought process present and cooperative THOUGHT PROCESS: Normal thought process present Data : 04/27/21 15:55 04/27/21 15:55 A&P Assessment and plan (1) Acute hypercapnic respiratory failure: -Likely secondary to CHF exacerbation Lasix 40 mg IV twice daily BMPs, monitor creatinine, monitor potassium, start BiPAP -Will have to have case workers to reach out to [facility], to troubleshoot patient's home trilogy machine -No active wheezing, does not seem acute COPD -Does have evidence of lingular pneumonia, Covid PCR ordered, rapid flu ordered, sputum, cultures, blood cultures, urine bacterial antigens -DNR/DNI Hypertension continue home meds Hyperlipidemia continue home meds CVA continue Plavix Status: Acute (2) Chronic diastolic CHF (congestive heart failure): Status: Acute Attestations Medical Necessity Statement*: His hospitalization, outpatient with observation, for acute hypercapnic respiratory failure secondary to diastolic CHF exacerbation, Coding Level of Care Code Acute Computer Installation Engineer for [facility] Ayla Diagnoses Acute hypercapnic respiratory failure J96.02 Chronic diastolic CHF (congestive heart failure) I50.32
[2021-04-27] MEDS: ipratropium-albuterol 3 mL Neb INHALATION ×3 (18:07)
[2021-04-27 18:16] LABS: SARS Covid-2 Antigen Negative (Negative)
[2021-04-27] MEDS: FUROsemide 10 mg/mL SDV 4mL 40 MG IVP (18:20)
[2021-04-27 19:39] LABS: Procalcitonin 0.05 ng/mL (0-0.5)
--- NOTE | 2021-04-27 19:55 | CTR_ITS ---
PROCEDURE INFORMATION: Exam: CTA Chest With Contrast Exam date and time: 04/27/2021 7:55 PM Age: 61 years old Clinical indication: Cough and shortness of breath; Patient HX: C/O SOB and cough TECHNIQUE: Imaging protocol: Computed tomographic angiography of the chest with contrast. 3D rendering (Not supervised by radiologist): MIP and/or 3D reconstructed images were created by the technologist. Radiation optimization: All CT scans at this facility use at least one of these dose optimization techniques: automated exposure control; mA and/or kV adjustment per patient size (includes targeted exams where dose is matched to clinical indication); or iterative reconstruction. Contrast material: OMNI 350; Contrast volume: 76 ml; Contrast route: INTRAVENOUS (IV); COMPARISON: CR (CHEST, ) 04/27/2021 4:19 PM RADIATION DOSE METRICS: Total DLP (mGy-cm): 622.85 FINDINGS: Pulmonary arteries: Normal. No pulmonary emboli. Aorta: Unremarkable. No aortic aneurysm. No aortic dissection. Lungs: Patchy ground-glass opacities in the superior and inferior lingular segments of the left upper lobe. Multiple nodular consolidations in the left lower lobe, the largest measuring 12 mm, series 3, image 37. Dependent atelectasis in the lower lobes, left greater than right. Pleural spaces: Trace left pleural effusion. No pneumothorax. Heart: Unremarkable. No cardiomegaly. No pericardial effusion. Lymph nodes: Prominent mediastinal and hilar lymph nodes are most likely reactive. Bones/joints: Degenerative changes of the lower thoracic spine. No compression fracture or subluxation. Soft tissues: Mild body wall edema, greater along the left chest wall. No organized fluid collection. CT/CT angio chest PE protcl [id number] IMPRESSION: 1. No evidence for pulmonary embolus. 2. Mild pneumonia in the lingula and left lower lobe. 3. 12 mm nodular consolidation in the left lower lobe is most likely infectious but a neoplastic nodule is not excluded. For both low risk and high risk patients, consider CT Chest at 3 months, PET/CT, or biopsy. (Reference: Jovita) References: Jovita Sarmiento et al. Guidelines for Management of Incidental Pulmonary Nodules Detected on CT Images: From the Fleischner Society 2017. Radiology. 2017;284(1):228-243. Radiation Dose CTDIVOL = (mGy): DLP = 622.85 (mGy-cm)
[2021-04-27] MEDS: iohexol 350 mg/mL 100 mL Btl IV (20:49)
[2021-04-27] MEDS: gabapentin 300 mg Capsule PO (21:11)
[2021-04-27] MEDS: cefTRIAXone 1,000 MG in sodium chloride 0.9% (plus) 50 ML 100 MG IV (21:11)
[2021-04-27] MEDS: atorvastatin 40 mg Tablet 80 MG PO (21:11)
[2021-04-27] MEDS: enoxaparin 40 mg/0.4 mL Syringe SUBCUT (21:11)
[2021-04-27] MEDS: azithromycin 500 MG in sodium chloride 0.9% 250 ML 250 MG IV (21:50)
--- NOTE | 2021-04-27 21:54 | ECG_ITS ---
[facility] Test Date: 2021-04-27 Pat Name: Richard Inman Department: Room: 264 Gender: Male Boiler Shop Mechanic: : 1960 Requested By: Kenney Parrish Order Number: [id number] Kunal MD: Daniel Chavira M.D. Measurements Intervals [place] Rate: 74 P: 74 HI: 182 QRS: 68 QRSD: 86 T: 67 QT: 394 QTc: 440 Interpretive Statements SINUS RHYTHM Compared to ECG 04/27/2021 23:45:31 No significant changes Electronically Signed On 04-28-2021 17:07:04 BASS STRING WINDER by Daniel Chavira M.D. [email or web address] memorial hospitalZume [id number]
[2021-04-27 22:30] LABS: Troponin 5 6HR 66.68 ng/L (0-15)
[2021-04-27 22:39] LABS: Troponin 5 6HR Delta 24.68 ng/L (0-12)
--- NOTE | 2021-04-27 23:51 | PC.NURSE ---
Reported critical Troponin and Delta to Dr. Jimenez at 7305, received N/O to add troponin to A.M. labs and if still elevated adjustments will be made to lovenox at that time.
--- NOTE | 2021-04-27 23:53 | ECG_ITS ---
[facility] Test Date: 2021-04-27 Pat Name: Richard Inman Department: Room: 264 Gender: Male Junior Technical Writer: : 1960 Requested By: Jaylon Be Order Number: [id number] Syed MD: Daniel Chavira M.D. Measurements Intervals [place] Rate: 74 P: 75 OR: 180 QRS: 67 QRSD: 92 T: 67 QT: 393 QTc: 438 Interpretive Statements SINUS RHYTHM Compared to ECG 04/27/2021 18:26:11 No significant changes Electronically Signed On 04-28-2021 17:07:08 METAL MOLD DRESSER by Daniel Chavira M.D. [email or web address] [id number]
[2021-04-28] VITALS (14 sets, daily range): BP systolic 117–167; BP diastolic 69–88; PULSE 65–76; RESP 9–20; TEMP 36.4–37.2; O2SAT 90–98
[2021-04-28 00:39] LABS: Influenza A by IFA Negative (Negative); Influenza B by IFA Negative (Negative)
[2021-04-28 03:11] LABS: Basophils % 0.3 %; Eosinophils # 0.1 10^3/uL (0.0-0.8); Eosinophils % 0.7 %; Hematocrit 37.7 % (42.0-52.0); Hemoglobin 10.9 g/dL (11.7-16.6); Lymphocytes % 13.9 %; Mean Corpuscular HGB Conc 28.9 g/dL (30.0-36.0); Mean Corpuscular Hemoglobin 27.7 pg (28.0-34.0); Mean Corpuscular Volume 95.7 fl (80-94); Mean Platelet Volume 9.7 fL (7.4-10.4); Monocytes # 0.7 10^3/uL (0.2-0.9); Monocytes % 9.5 %; Neutrophils % 75.1 %; Nucleated Red Blood Cells % 0.3 %; Platelet Count 212 10^3/cmm (130-400); Red Blood Count 3.94 10^6/uL (4.1-5.3); Red Cell Distribution Width 14.3 % (12.1-15.1); White Blood Count 7.5 10^3/uL (4.0-10.0)
[2021-04-28 03:36] LABS: Troponin T (5th) Once 85 ng/L (0-15)
[2021-04-28 03:37] LABS: Alanine Aminotransferase 14 U/L (0-41); Albumin Level 3.7 g/dL (3.5-5.2); Alkaline Phosphatase 47 IU/L (40-130); Anion Gap 17.1 (5-19); Aspartate Amino Transferase 11 U/L (0-40); Blood Urea Nitrogen 13 mg/dL (8-23); Calcium 8.3 mg/dL (8.5-10.5); Carbon Dioxide 28 mmol/L (22-29); Chloride 103 mmol/L (98-107); Globulin 2.4 g/dL (1.3-4.6); Glucose 109 mg/dL (65-115); NT Pro B Type Natriuretic Pept 1799 pg/mL (0-125); Osmolality Calculated 299 mOsm/kg (285-295); Potassium 4.1 mmol/L (3.5-5.1); Sodium 144 mmol/L (136-145); Total Bilirubin 0.3 mg/dL (0.15-1.2); Total Protein 6.1 g/dL (6.6-8.7)
[2021-04-28] MEDS: FUROsemide 10 mg/mL SDV 4mL 40 MG IVP ×2 (05:36→17:44)
[2021-04-28] MEDS: ipratropium-albuterol 3 mL Neb INHALATION (08:31)
[2021-04-28] MEDS: clopidogrel 75 mg Tablet PO (09:19)
[2021-04-28] MEDS: gabapentin 300 mg Capsule PO ×2 (09:19→21:29)
[2021-04-28] MEDS: sertraline 50 mg Tablet PO (09:19)
[2021-04-28] MEDS: pantoprazole DR 40 mg Tablet PO (09:19)
--- NOTE | 2021-04-28 10:02 | PC.CHAP ---
Pastoral Care Encounter/Spiritual Assessment Type of Contact [] Declined meat apprentice visit [] Patient/Family/Request visit [] Outpatient visit [] Follow-up visit [] Physician referral [] Code/Alert [x] Routine visit [] Staff referral [] Actively dying [] Patient sleeping [] Family support [] [] Out of room [] Palliative care [] [] Receiving care in room [] Pre-surgical visit [] Trauma [] Long length of stay [] ICU visit [] Other: Relational/Emotional Strength [] Patient feels connected with others/family/visitors/staff [] Distress [] Loneliness/isolation [] Abandonment Spirituality of Patient [x] Person of Riya [] Attends Denominational of their Riya [x] Believes in Prayer [] Reads Bible or Synagogue materials [] There are Spiritual issues to be addressed Therapeutic Consultant Interventions [x] Prayer [] Active listening [] Non-anxious presence [] Spiritual/emotional support [] Crisis/trauma care [] Spiritual counseling [] Bereavement support [] Provided bereavement packet [] Provided Bible/devotional materials [] Provided toy/stuffed animal, coloring book to patient or family member [] Provided Communion [] Anointing/[place] [] Salvation [x]x Completed spiritual assessment [] Other: Impact on Illness or Injury [] Angry [] Fearful [] Anxious [] Often cries [] Exhaustion [] Unable to work [] Unable to attend samaritan [] Unable to walk/stand [] Unable to read [] Unable to drive [] Unable to eat/drink [] Unable to sleep [] Unable to be with family [] Patient intubated [] Other: Summary Time spent with patient 5 min
--- NOTE | 2021-04-28 11:24 | P.PN_ITS ---
Subjective Subjective: Interval history: Patient was seen and examined this morning, says sob have improved a lot, deny any chest pain, palpitation, nausea,fever,chills. Medications: Reviewed: Yes Vitals/I&O/Wt Last Vital Signs Temp 98.9 F 04/28/21 07:44 Pulse 72 04/28/21 09:15 Resp 14 04/28/21 09:15 BP 117/73 04/28/21 07:44 Pulse Ox 92 04/28/21 09:15 04/27/21 04/28/21 04/28/21 22:59 06:59 14:59 Intake Total 300 / 300 Output Total 100 / 100 Balance 300 / 300 -100 / 200 Weight last 48 hrs Weight 118.955 kg Weight 113.398 kg Physical Exam Const: COMMON NORMALS: patient oriented x3 HENMT: COMMON NORMALS: normocephalic and atraumatic HEAD & SCALP: normocephalic and atraumatic Resp: OTHER: Diminished air entry BL/ Cardio: COMMON NORMALS: regular rate, regular rhythm, S1 normal heart sound present, S2 normal heart sound present, No gallops present (Cardio), No murmurs present (Cardio), No rub (Cardio) and Peripheral pulses 2+ throughout RATE: regular rate RHYTHM: regular rhythm HEART SOUNDS: S1 normal heart sound present and S2 normal heart sound present PERIPHERAL PULSES: Peripheral pulses 2+ throughout GI: COMMON NORMALS: Normal to inspection, nondistended, normoactive bowel sounds present, Soft to palpation, non-tender, No hepatosplenomegaly present and no masses AUSCULTATION: Yes normoactive bowel sounds PALPATION: Yes Soft to palpation and Yes No hepatosplenomegaly present RECTAL EXAM: Yes deferred Extremity: COMMON NORMALS: no clubbing, cyanosis or edema and no pedal edema Neuro: COMMON NORMALS: patient oriented x3 Data : 04/28/21 02:25 04/28/21 02:25 Micro: Microbiology 04/27/21 00:01 Blood Culture - Preliminary Blood SPECIMEN COLLECTED 04/27/21 00:00 Blood Culture - Preliminary Blood SPECIMEN COLLECTED A&P Assessment and plan (1) Acute hypercapnic respiratory failure: -Likely secondary to CHF exacerbation Lasix 40 mg IV twice daily BMPs, monitor creatinine, monitor potassium, start BiPAP -Will have to have case workers to reach out to [employer], to troubleshoot patient's home trilogy machine -No active wheezing, does not seem acute COPD -Does have evidence of lingular pneumonia, Covid PCR ordered, rapid flu ordered, sputum, cultures, blood cultures, urine bacterial antigens -DNR/DNI Hypertension continue home meds Hyperlipidemia continue home meds CVA continue Plavix Status: Acute (2) Chronic diastolic CHF (congestive heart failure): Status: Acute Attestations Medical Necessity Statement*: patient needs to be in hospital for the management of PNA as H/F Coding Level of Care Code Acute Patient Services Representative for Chg Fwd Exam Detailed Diagnoses Acute hypercapnic respiratory failure J96.02 Chronic diastolic CHF (congestive heart failure) I50.32
[2021-04-28 14:31] LABS: Coronavirus Test Green County Not Detected
[2021-04-28] MEDS: cefTRIAXone 1,000 MG in sodium chloride 0.9% (plus) 50 ML 100 MG IV (21:25)
[2021-04-28] MEDS: enoxaparin 40 mg/0.4 mL Syringe SUBCUT (21:28)
[2021-04-28] MEDS: atorvastatin 40 mg Tablet 80 MG PO (21:29)
[2021-04-28] MEDS: azithromycin 500 MG in sodium chloride 0.9% 250 ML 250 MG IV (22:56)
[2021-04-29] VITALS (7 sets, daily range): BP systolic 125–136; BP diastolic 70–79; PULSE 62–85; RESP 9–20; TEMP 36.5–36.9; O2SAT 95–98
[2021-04-29] MEDS: FUROsemide 10 mg/mL SDV 4mL 40 MG IVP (06:07)
[2021-04-29] MEDS: clopidogrel 75 mg Tablet PO (08:27)
[2021-04-29] MEDS: sertraline 50 mg Tablet PO (08:27)
[2021-04-29] MEDS: gabapentin 300 mg Capsule PO (08:27)
[2021-04-29] MEDS: pantoprazole DR 40 mg Tablet PO (08:27)
[2021-04-29] MEDS: ipratropium-albuterol 3 mL Neb INHALATION (09:10)
--- NOTE | 2021-04-29 10:53 | PC.SOCIAL ---
Callled and spoke to Meena at [facility] and made her aware that pt needed his trilogy at home checked out cause it isnt working right. She stated they would send someone out today to look at it.
--- NOTE | 2021-04-29 12:16 | P.DS_ITS ---
Discharge Providers Date of Admission: 04/27/21 17:05 Date of Discharge: April 29, 2021 Attending Provider at Admission: Jaylon Be MD Attending Provider at Discharge: Pravin Poole MD Primary Care Provider: Gomez Chris NP Diagnoses at Discharge Discharge Diagnosis (1) Acute hypercapnic respiratory failure: Status: Resolved (2) Chronic diastolic CHF (congestive heart failure): Status: Acute Reason for Visit Reason for Visit: LOW 02 Hospital Course Hospital Course 61 year old male with a past medical history of obesity hypoventilation syndrome, small airway disease, struct of sleep apnea, acute on chronic hypercapnic respiratory failure, greater than [id number] history of smoking, currently on AVAPS, home trilogy machine, grade 2 diastolic dysfunction, history of CVA, hypertension, hyperlipidemia, who presents to [facility] due to complaints of short increasing shortness of breath, increasing confusion, increased somnolence. During the hospital stay he was managed for acute on chronic hypercapnic hypoxic respiratory failure secondary to diastolic heart failure exacerbation as well as pneumonia. He was kept on IV diuresis, antibiotics, Nebs, rapid Covid antigen was negative, blood culture was negative, influenza was negative. CTA chest done during the hospital stay : Showed no PE , Mild pneumonia in the lingula and left lower lobe, 12 mm nodular consolidation in the left lower lobe is most likely infectious but a neoplastic nodule is not excluded. Prior CT scan chest have shown lung Nodules: 5 mm noncalcified pulmonary nodule in the RIGHT lower lobe, given the history of extensive smoking in the past, he will follow up with Dr. Dorsey his commercial real estate agent, for possible repeat CT chest in 3 to 6 months to rule out any underlying possible neoplasm. During the hospital stay patient was also managed for NSTEMI type II, likely secondary to CHF exacerbation, patient denied any chest pain, he is also denied any chest pain with exertion in the past, no acute ST-T wave changes on EKG, most recent 2D echo done in February 2020: Has shown Normal left ventricular cavity size. Normal left ventricular systolic function. No regional wall motion abnormalities. Left ventricular ejection fraction is estimated at 65 %. Grade II/IV diastolic dysfunction, moderately elevated filling pressures. The right ventricle is normal in size and function. RVSP could not be calculated due to i ncomplete tricuspid regurgitation velocity profile.There is no pericardial effusion.No significant valve abnormalities. Given his extensive smoking history dyslipidemia hypertension, obesity, age and sex he has agreed to follow cardiology as an outpatient, for any possible further work-up to rule out any underlying coronary artery disease.Since the patient was not complaining of any ongoing chest pain stress test was not pursued during this hospital stay. Patient has been discharged on p.o. levofloxacin for additional 5 days.Patient responded well to above medical management and is being discharged in stable condition to home. He will continue to follow-up with his primary care physician as an outpatient. Physical Exam Const: COMMON NORMALS: patient oriented x3 HENMT: COMMON NORMALS: normocephalic and atraumatic HEAD & SCALP: normocephalic and atraumatic Resp: COMMON NORMALS: normal respiratory effort, No retractions and clear to auscultation bilaterally AUSCULTATION: clear to auscultation bilaterally Cardio: COMMON NORMALS: regular rate, regular rhythm, S1 normal heart sound present, S2 normal heart sound present, No gallops present (Cardio), No murmurs present (Cardio), No rub (Cardio) and Peripheral pulses 2+ throughout RATE: regular rate RHYTHM: regular rhythm HEART SOUNDS: S1 normal heart sound present and S2 normal heart sound present PERIPHERAL PULSES: Peripheral pulses 2+ throughout GI: COMMON NORMALS: Normal to inspection, nondistended, normoactive bowel sounds present, Soft to palpation, non-tender, No hepatosplenomegaly present and no masses AUSCULTATION: Yes normoactive bowel sounds PALPATION: Yes Soft to palpation and Yes No hepatosplenomegaly present RECTAL EXAM: Yes deferred Extremity: COMMON NORMALS: no clubbing, cyanosis or edema and no pedal edema Neuro: COMMON NORMALS: patient oriented x3 Discharge Data Data Completed and Pending: Completed Studies During Hospitalization Category Date Time Status CT angio chest PE protcl [id number] Urge nt Cat Scan 04/27/21 19:55 Completed XR chest 1V mark ble [id number] Stat Exams 04/27/21 15:54 Completed Pending at discharge Category Date Time Status Bacterial Antigen Stat Lab 04/27/21 17:56 Uncollected Blood Culture Sta t Lab 04/27/21 00:01 Results Legionella Antige n STAT Stat Lab 04/27/21 17:56 Uncollected Sputum Culture an d Gram Stain Stat Lab 04/27/21 17:56 Uncollected Labs from last 24 hours 04/27/21 17:00 Nasal/Oral COVID-1 9 PCR Not detected Vitals: Last Vital Signs Temp 97.7 F 04/29/21 08:00 Pulse 85 04/29/21 09:16 Resp 18 04/29/21 09:10 BP 136/72 04/29/21 08:00 Pulse Ox 95 04/29/21 09:10 Discharge Plan Discharge Patient Disposition: Home Condition: Stable Prescriptions: New levofloxacin 500 mg tablet 500 mg PO DAILY 5 Days Qty: 5 RF: 0 Continued Stiolto Respimat 2.5-2.5 mcg/actuation mist See Rx Instructions .ROUTE .COMPLEX Qty: 4 RF: 3 Vitamin B-12 50 mcg Tablet 50 mcg PO DAILY RF: 0 fenofibrate 54 mg tablet 54 mg PO DAILY RF: 0 amlodipine-benazepril 5-20 mg capsule 1 cap PO DAILY RF: 0 gabapentin 300 mg capsule 300 mg PO TID RF: 0 atorvastatin 80 mg tablet 80 mg PO BEDTIME RF: 0 baclofen 10 mg tablet 10 mg PO TID PRN (Reason: unknown) RF: 0 clopidogrel 75 mg tablet 75 mg PO DAILY RF: 0 sertraline 50 mg tablet 50 mg PO DAILY RF: 0 pantoprazole 40 mg tablet,delayed release (DR/EC) 40 mg PO DAILY RF: 0 multivitamin [Multiple Vitamins] Tablet 1 tab PO DAILY RF: 0 acetaminophen [Tylenol Extra Strength] 500 mg Tablet 500 - 1,000 mg PO PRN RF: 0 docusate sodium [Colace] 100 mg Capsule 100 mg PO DAILY PRN (Reason: unknown) RF: 0 diclofenac sodium 50 mg tablet,delayed release (DR/EC) 50 mg PO TID PRN (Reason: Back Pain) RF: 0 Changed furosemide 20 mg tablet 40 mg PO DAILY 30 Days Qty: 30 RF: 3 Discharge Orders: Discharge Order (Routine); Ordered 04/29/21 Ordered By: Pravin Poole Referrals: Gomez Chris NP [Primary Care Provider] - 05/06/21 11:00 am Keven Dorsey MD [Physician] - 05/26/21 11:00 am Yvonne Shearer MD [Physician] - 05/15/21 12:15 pm () Discharge Diet: Regular Discharge Activity: Resume usual activity Patient Instructions: Levofloxacin (By mouth), Heart Failure (GEN), CHF Stoplight, Opioid Safety Discharge Attestations Time Spent in Discharge Care*: less than 30 min Specific Discharge Activities: educating patient, educating and/or supporting family/caregiver, discussing with pcp/other providers, discussing with ed case manager/social workers/dc planners, documenting/other paperwork and evaluating patient/reviewing data Status at Discharge: Cognitive status at discharge: cognitively intact , Behavioral status at discharge: cooperative and dependent in ADL's , Quality Metrics Clinical Quality Measures During this hospital stay, did patient experience: None Coding Level of Care Code Acute Chg FW DC note Diagnoses Acute hypercapnic respiratory failure J96.02 Chronic diastolic CHF (congestive heart failure) I50.32
--- NOTE | 2021-04-29 12:23 | PC.SOCIAL ---
Let pt know that i had notified [facility] and they should be getting ahold of him.
== END 2021-04-29 15:43 | disposition home or self-care (01) ==
LOC: ER 17:32 → MEDSURG 18:38
PROVIDERS: Student in an Organized Health Care Education/Training Program; Admitting Provider Family Medicine; Emergency Provider Emergency Medicine; PCP Nurse Practitioner Family; Visit Provider Internal Medicine
DX: J96.02 Acute respiratory failure with hypercapnia (principal); I50.32 Chronic diastolic (congestive) heart failure; R06.03 Acute respiratory distress; R06.00 Dyspnea, unspecified; I10 Essential (primary) hypertension; E78.5 Hyperlipidemia, unspecified; E66.01 Morbid (severe) obesity due to excess calories; Z68.41 Body mass index [BMI] 40.0-44.9, adult; Z87.891 Personal history of nicotine dependence; Z86.73 Personal history of transient ischemic attack (TIA), and cerebral infarction without residual deficits
CPT/HCPCS: 36415; 36600; 71045; 71275; 80051; 80053; 82330; 82805; 83690; 83880; 84145; 84443; 84484; 85025; 85378; 87040; 87426; 87635; 87804; 93005; 94640; 94660; 96365; 96367; 96372; 96375; 99291; G0378; J0456; J0696; J1650; J1940; J7050; Q9967

== ENCOUNTER 2021-09-19 14:21 | Inpatient (IN) | payer MEDICARE, MEDICAID, SELFPAY ==
[2021-09-19] VITALS (14 sets, daily range): BP systolic 113–160; BP diastolic 70–79; PULSE 79–98; RESP 13–22; TEMP 36.8–37; O2SAT 90–95; BMI 39.9
--- NOTE | 2021-09-19 14:29 | XRR_ITS ---
PROCEDURE INFORMATION: Exam: XR Chest Exam date and time: 09/19/2021 2:34 PM Age: 61 years old Clinical indication: Condition or disease; Lung condition and disease; Pneumonia; Shortness of breath; Additional info: Dyspnea TECHNIQUE: Imaging protocol: XR of the chest. Views: 2 views. COMPARISON: CR (CHEST, ) 04/27/2021 4:19 PM FINDINGS: Lungs: Pulmonary vascular congestion and interstitial edema. Minimal patchy ground-glass airspace opacities reflecting alveolar edema and/or pneumonic infiltrates. Pleural spaces: Unremarkable. No pleural effusion. No pneumothorax. Heart/Mediastinum: Cardiomegaly. Bones/joints: Unremarkable. XR/XR chest 2V* [id number] IMPRESSION: 1. Cardiomegaly. 2. Pulmonary vascular congestion and interstitial edema. 3. Minimal patchy ground-glass airspace opacities reflecting alveolar edema and/or pneumonic infiltrates.
--- NOTE | 2021-09-19 14:30 | ECG_ITS ---
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 Measurements Intervals [place] Rate: 83 P: 50 TX: 188 QRS: 80 QRSD: 90 T: 56 QT: 345 QTc: 406 Interpretive Statements SINUS RHYTHM Compared to ECG 04/27/2021 23:46:31 No significant changes Electronically Signed On 09-19-2021 20:07:13 CDT by Yvonne Shearer M.D. [id number]
--- NOTE | 2021-09-19 14:50 | W.ED.GENADLT ---
HPI - General Adult General: Chief complaint: Shortness of Breath/Dyspnea Stated complaint: SOB Time Seen by Provider: 09/19/21 14:29 History of Present Illness: Patient is a 61-year-old male with history of CVA, CHF, HTN, HLD, hypercapneic respirator failure followed by Dr. Dorsey, PATRICIO on 4L NC at baseline and CPAP at night presented to emergency room with dyspnea and productive cough x2 days. Patient tells me that for the last 2 days his symptoms of shortness of breath has significantly worsened to the point that he cannot function without oxygen and BiPAP. Earlier today, patient called EMS after noting that his sat oxygen saturation was in the 70s. EMS noted similar numbers and patient was brought to the emergency room. On arrival, patient satting at 60 L at 92%. Patient with frequent wheezing despite treatments at home. Patient denies any chest pain, vomiting, nausea/vomiting, fever/chills. Patient says that he is compliant with furosemide 40 mg daily. Patient denies any significant weight gain recently. Patient denies any fever or chills, sore throat or runny nose or any sick contact. Patient denies any diarrhea, melena/hematochezia, or urinary complaints at this time. Onset: 2 days ago Duration:2 days Location:home Severity:moderate Associated symptoms: Reports dyspnea; Deny chest pain, nausea, rash, palpitations or vomiting Review of Systems Const: Denies: fever(s) or chills Eyes: Denies: change in vision ENMT: Denies: mouth pain Card: Denies: chest pain or palpitations Resp: Reports: dyspnea and productive cough GI: Denies: abdominal pain, nausea, vomiting or diarrhea : Denies: dysuria Musc: Denies: extremity pain Skin/Breast: Denies: rash or new lesions Neuro: Denies: weakness in extremities Psych: Reports: other (Normal mood) Jhon/Lymph: Denies: easy bruising PFSH ED PFSH: Medical History Acute hypercapnic respiratory failure Acute hypercapnic respiratory failure Acute respiratory distress Chronic diastolic CHF (congestive heart failure) Chronic hypercapnic respiratory failure CVA (cerebral vascular accident) -about 1 yr ago, on DAPT Depression with anxiety Dyspnea GERD (gastroesophageal reflux disease) -on PPI Hyperlipidemia Hypertension Morbid obesity -BMI-39 kg/m2 Obstructive sleep apnea Ulnar neuropathy of both upper extremities Social History Quit status (tobacco): has quit using tobacco Year quit tobacco: 2019 - 1PPD x 40 Years Second hand smoke exposure: No Alcohol intake: current Alcohol intake frequency: few times a week Alcohol type: beer Lives independently: Yes Household members: spouse Marital status: Current occupational status: disabled History of recent travel: No Current gender identity: Male Physical Exam Const: COMMON NORMALS: alert HENMT: COMMON NORMALS: atraumatic HEAD & SCALP: atraumatic MOUTH: moist mucous membranes not abnormal Eye: COMMON NORMALS: EOMs intact bilaterally and conjunctivae normal CONJUNCTIVA: Yes conjunctivae normal Neck/C-Spine: COMMON NORMALS: full ROM and supple Resp: OTHER: + Expiratory wheezes bilaterally, coarse breath sounds bilaterally, mild tachypnea/increased respiratory effort Cardio: COMMON NORMALS: regular rate RATE: regular rate GI: COMMON NORMALS: Soft to palpation and non-tender PALPATION: Yes Soft to palpation Extremity: COMMON NORMALS: full ROM OTHER: 1+ lower extremity swelling Neuro: SENSORIUM/ORIENTATION: Yes alert MOTOR EXAM: No Abnormal motor strength present and Other motor observations present (no focal motor deficits) Psych: COMMON NORMALS: speech normal SPEECH: Yes normal speech MOOD & AFFECT: Yes euthymic mood Course Vital Signs: Vital signs: Vital Signs Temperature 98.2 F 09/19/21 14:25 Pulse Rate 86 09/19/21 16:08 Respiratory Rate 13 09/19/21 16:08 Blood Pressure 134/76 09/19/21 16:08 Pulse Oximetry 93 09/19/21 16:08 MDM - General Adult Medical Decision Making 61M w/ hx of CVA, CHF, HTN, HLD, hypercapneic respirator failure followed by Dr. Dorsey, PATRICIO on O2 at baseline and CPAP at night presenting to the emergency room for worsening dyspnea x2 days. On arrival, patient is noted be satting at 6L at 92%. Patient is noted to have expiratory wheezes with mild increased work of breathing. Patient has 1+ edema in the lower extremity. Patient received DuoNeb and steroids with mild improvement in symptoms. Patient continues to be satting at 94% on 6 L of oxygen. X-ray chest showed empyhsematous changes. Hemoglobin of 10 similar to baseline. proBNP 4559 elevated from baseline. Patient received 80 mg of Lasix. D-dimer appears to be elevated at 0.64. CTA chest negative for PE. Patient received DuoNeb and Solu-Medrol with improvement in symptoms. He will be admitted to the hospital for COPD and CHF exacerbation. Disposition: admission Lab Data : 09/19/21 15:05 09/19/21 15:05 Radiology Impressions Chest X-Ray 09/19/21 14:29 IMPRESSION: 1. Cardiomegaly. 2. Pulmonary vascular congestion and interstitial edema. 3. Minimal patchy ground-glass airspace opacities reflecting alveolar edema and/or pneumonic infiltrates. Chest CTA 09/19/21 15:43 IMPRESSION: 1. Negative for pulmonary embolus. 2. Cardiomegaly. 3. Coronary artery atherosclerotic calcifications. 4. Prominent mediastinal lymph nodes measuring up to 15 mm, nonspecific. 5. Small bilateral pleural effusions. 6. Bilateral dependent atelectasis versus infiltrate. Laboratory Results WBC 8.1 10^3/uL (4.0-10.0) 09/19/21 15:05 RBC 3.66 10^6/uL (4.1-5.3) L 09/19/21 15:05 Hgb 10.0 g/dL (11.7-16.6) L 09/19/21 15:05 Hct 34.7 % (42.0-52.0) L 09/19/21 15:05 MCV 94.8 fl (80-94) H 09/19/21 15:05 MCH 27.3 pg (28.0-34.0) L 09/19/21 15:05 MCHC 28.8 g/dL (30.0-36.0) L 09/19/21 15:05 RDW 14.6 % (12.1-15.1) 09/19/21 15:05 Plt Count 200 10^3/cmm (130-400) 09/19/21 15:05 MPV 9.4 fL (7.4-10.4) 09/19/21 15:05 Neut % (Auto) 75.4 % 09/19/21 15:05 Lymph % (Auto) 12.3 % 09/19/21 15:05 [place] % (Auto) 11.1 % 09/19/21 15:05 Eos % (Auto) 0.2 % 09/19/21 15:05 Baso % (Auto) 0.4 % 09/19/21 15:05 Neut # (Auto) 6.14 10^3/uL (1.8-7.7) 09/19/21 15:05 Lymph # (Auto) 1.0 10^3/uL (0.8-4.8) 09/19/21 15:05 [place] # (Auto) 0.9 10^3/uL (0.2-0.9) 09/19/21 15:05 Eos # (Auto) 0.0 10^3/uL (0.0-0.8) 09/19/21 15:05 Baso # (Auto) 0.0 10^3/uL (0.0-0.1) 09/19/21 15:05 Nucleated RBC % (auto) 0.6 % 09/19/21 15:05 Nucleated RBCs # 0.1 /100WBC 09/19/21 15:05 D-Dimer 0.64 ug/mIFEU (0-0.59) H 09/19/21 15:05 Specimen Type Arterial 09/19/21 14:59 Sample Site Radial, left 09/19/21 14:59 ABG pH 7.32 (7.35-7.45) L 09/19/21 14:59 ABG pCO2 59.8 mmHg (35-45) H 09/19/21 14:59 ABG pO2 57.7 mmHg (80.0-100.0) L 09/19/21 14:59 ABG HCO3 30.6 mmol/L (22-26) H 09/19/21 14:59 ABG Base Excess 3.4 mmol/L (-2.0-2.0) H 09/19/21 14:59 Kai Test Pos 09/19/21 14:59 Hematocrit 30.7 % (42-52) L 09/19/21 14:59 O2 Delivery Device Nc 09/19/21 14:59 O2 Liters/Min 5.0 % 09/19/21 14:59 Rubber Moulding Machine Operator ID Cak 09/19/21 14:59 Sodium 137 mmol/L (136-145) 09/19/21 15:05 Potassium 4.8 mmol/L (3.5-5.1) 09/19/21 15:05 Chloride 101 mmol/L (98-107) 09/19/21 15:05 Carbon Dioxide 29 mmol/L (22-29) 09/19/21 15:05 Anion Gap 11.8 (5-19) 09/19/21 15:05 BUN 22 mg/dL (8-23) 09/19/21 15:05 Creatinine 1.2 mg/dL (0.7-1.2) 09/19/21 15:05 GFR Calculation 61.3 mL/min (90-130) L 09/19/21 15:05 Glucose 116 mg/dL (65-115) H 09/19/21 15:05 Calculated Osmolality 288 mOsm/kg (285-295) 09/19/21 15:05 Calcium 8.6 mg/dL (8.5-10.5) 09/19/21 15:05 Troponin T Baseline 53 ng/L (0-15) H 09/19/21 15:05 NT-Pro-B Natriuret Pep 4559 pg/mL (0-125) H 09/19/21 15:05 Imaging Data Other Imaging: Radiologist's impression: [address] [address] XRay Report Signed Patient: Richard Inman Unit #: [id number] : 1960 Age/Sex: 61 / M ADM Date: 09/19/21 Loc: ER Room/Bed: Attending Dr: Ordering Provider/Ordering MD: Kenney Parrish MD Date of Service: 09/19/21 Procedure(s): XR chest 2V* [id number] Accession Number(s): [id number] Report Number: [id number] PROCEDURE INFORMATION: Exam: XR Chest Exam date and time: 09/19/2021 2:34 PM Age: 61 years old Clinical indication: Condition or disease; Lung condition and disease; Pneumonia; Shortness of breath; Additional info: Dyspnea TECHNIQUE: Imaging protocol: XR of the chest. Views: 2 views. COMPARISON: CR (CHEST, ) 04/27/2021 4:19 PM FINDINGS: Lungs: Pulmonary vascular congestion and interstitial edema. Minimal patchy ground-glass airspace opacities reflecting alveolar edema and/or pneumonic infiltrates. Pleural spaces: Unremarkable. No pleural effusion. No pneumothorax. Heart/Mediastinum: Cardiomegaly. Bones/joints: Unremarkable. XR/XR chest 2V* [id number] IMPRESSION: 1. Cardiomegaly. 2. Pulmonary vascular congestion and interstitial edema. 3. Minimal patchy ground-glass airspace opacities reflecting alveolar edema and/or pneumonic infiltrates. ? Dictated By: Hollis Whitt MD Signed By: Hollis Whitt MD Signed Date/Time: 09/19/21 1518 DD/ 1434 Discharge Plan Discharge Patient Disposition: Admitted As Inpatient Admit Provider: Ciro Jeter Clinical Impression: Dyspnea, Hypoxemia, COPD exacerbation, CHF exacerbation Condition: Stable Coding Level of Care Code ED Foot Press Operator for Chg Fwd Exam Comprehensive
[2021-09-19] MEDS: ipratropium-albuterol 3 mL Neb INHALATION ×4 (14:58→20:50)
[2021-09-19 15:10] LABS: ABG PCO2 59.8 mmHg (35-45); ABG PH Result 7.32 (7.35-7.45); Arterial Blood Gas Hematocrit 30.7 % (42-52); Base Excess ABG 3.4 mmol/L (-2.0-2.0); Blood Gas Allen Test Pos; Blood Gas Operator Identificat CAK; Blood Gas Sample Site Radial, left; Blood Gas Sample Type Arterial; HCO3 ABG 30.6 mmol/L (22-26); Oxygen Device NC; PO2 ABG 57.7 mmHg (80.0-100.0)
[2021-09-19 15:11] LABS: Basophils % 0.4 %; Eosinophils % 0.2 %; Hematocrit 34.7 % (42.0-52.0); Lymphocytes % 12.3 %; Mean Corpuscular HGB Conc 28.8 g/dL (30.0-36.0); Mean Corpuscular Hemoglobin 27.3 pg (28.0-34.0); Mean Corpuscular Volume 94.8 fl (80-94); Mean Platelet Volume 9.4 fL (7.4-10.4); Monocytes # 0.9 10^3/uL (0.2-0.9); Monocytes % 11.1 %; Neutrophils # 6.14 10^3/uL (1.8-7.7); Neutrophils % 75.4 %; Nucleated Red Blood Cells # 0.1 /100WBC; Nucleated Red Blood Cells % 0.6 %; Platelet Count 200 10^3/cmm (130-400); Red Blood Count 3.66 10^6/uL (4.1-5.3); Red Cell Distribution Width 14.6 % (12.1-15.1); White Blood Count 8.1 10^3/uL (4.0-10.0)
--- NOTE | 2021-09-19 15:11 | PC.PHAR ---
pt states his [facility] takes care of his medications-called [facility] [phone] no answer left voicemail-called pts home and pts sister in law mary answered she states they have been trying to get ahold of the pts also mary states she found the pts medication bottles and read what the bottles had-medications entered are what the pharmacy has filled recently and what pts sister in law verified with the pts medication bottles notes are made in the pharmacy comments
[2021-09-19 15:30] LABS: Troponin(5th) Baseline 53 ng/L (0-15)
[2021-09-19 15:32] LABS: D Dimer 0.64 ug/mIFEU (0-0.59)
[2021-09-19 15:39] LABS: Anion Gap 11.8 (5-19); Blood Urea Nitrogen 22 mg/dL (8-23); Calcium 8.6 mg/dL (8.5-10.5); Carbon Dioxide 29 mmol/L (22-29); Chloride 101 mmol/L (98-107); Glomerular Filtration Rate 61.3 mL/min (90-130); Glucose 116 mg/dL (65-115); NT Pro B Type Natriuretic Pept 4559 pg/mL (0-125); Osmolality Calculated 288 mOsm/kg (285-295); Potassium 4.8 mmol/L (3.5-5.1); Sodium 137 mmol/L (136-145)
--- NOTE | 2021-09-19 15:43 | CTR_ITS ---
PROCEDURE INFORMATION: Exam: CTA Chest With Contrast Exam date and time: 09/19/2021 3:56 PM Age: 61 years old Clinical indication: Shortness of breath; Additional info: Eval pe TECHNIQUE: Imaging protocol: Computed tomographic angiography of the chest with contrast. 3D rendering (Not supervised by radiologist): MIP and/or 3D reconstructed images were created by the technologist. Radiation optimization: All CT scans at this facility use at least one of these dose optimization techniques: automated exposure control; mA and/or kV adjustment per patient size (includes targeted exams where dose is matched to clinical indication); or iterative reconstruction. Contrast material: OMNIPAQUE 350; Contrast volume: 78 ml; Contrast route: INTRAVENOUS (IV); COMPARISON: CT angio chest PE protcl [id number] 04/27/2021 8:42 PM RADIATION DOSE METRICS: Total DLP (mGy-cm): 622.85 FINDINGS: Pulmonary arteries: Normal. No pulmonary emboli. Aorta: Unremarkable. No aortic aneurysm. No aortic dissection. Lungs: Bilateral dependent atelectasis versus infiltrate. Pleural spaces: Small bilateral pleural effusions. Heart: Cardiomegaly. Coronary artery atherosclerotic calcifications. Lymph nodes: Prominent mediastinal lymph nodes measuring up to 15 mm, nonspecific. Bones/joints: Unremarkable. No acute fracture. Soft tissues: Unremarkable. CT/CT angio chest PE protcl [id number] IMPRESSION: 1. Negative for pulmonary embolus. 2. Cardiomegaly. 3. Coronary artery atherosclerotic calcifications. 4. Prominent mediastinal lymph nodes measuring up to 15 mm, nonspecific. 5. Small bilateral pleural effusions. 6. Bilateral dependent atelectasis versus infiltrate.
[2021-09-19] MEDS: iohexol 350 mg/mL 100 mL Btl IV (15:55)
[2021-09-19] MEDS: FUROsemide 10 mg/mL SDV 10mL 80 MG IVP (16:15)
--- NOTE | 2021-09-19 16:30 | ECG_ITS ---
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 Measurements Intervals [place] Rate: 84 P: 74 MS: 183 QRS: 79 QRSD: 89 T: 55 QT: 354 QTc: 421 Interpretive Statements SINUS RHYTHM Compared to ECG 09/19/2021 15:01:15 No significant changes Electronically Signed On 09-19-2021 20:40:04 CDT by Yvonne Shearer M.D. [email or web address]
[2021-09-19 16:53] LABS: Troponin 5 2HR 52.27 ng/L (0-15); Troponin 5 2HR Delta -0.73 ABS# (0-10)
[2021-09-19 17:20] LABS: Adenovirus Not Detected (NOT DETECT); Chlamydia Pneumoniae Not Detected (NOT DETECT); Coronavirus 229E,HKU1,NL63,OC4 Not Detected (NOT DETECT); Human Metapneumovirus Not Detected (NOT DETECT); Human Rhinovirus/Enterovirus Not Detected (NOT DETECT); Influenza A Not Detected (NOT DETECT); Influenza A H1 Not Detected (NOT DETECT); Influenza A H1-2009 Not Detected (NOT DETECT); Influenza A H3 Not Detected (NOT DETECT); Influenza B Not Detected (NOT DETECT); Mycoplasma Pneumoniae Not Detected (NOT DETECT); Parainfluenza Virus Type 1 Not Detected (NOT DETECT); Parainfluenza Virus Type 2 Not Detected (NOT DETECT); Parainfluenza Virus Type 3 Not Detected (NOT DETECT); Parainfluenza Virus Type 4 Not Detected (NOT DETECT); Respiratory Syncytial Virus A Not Detected (NOT DETECT); Respiratory Syncytial Virus B Not Detected (NOT DETECT); SARS-COV-2 Not Detected (NOT DETECT)
[2021-09-19 17:38] LABS: Influenza A Not Detected (NOT DETECT); Influenza A H1 Not Detected (NOT DETECT); Influenza A H1-2009 Not Detected (NOT DETECT); Influenza A H3 Not Detected (NOT DETECT); Influenza B Not Detected (NOT DETECT); Results from Genmark
--- NOTE | 2021-09-19 18:21 | P.HP_ITS ---
Providers/Chief Complaint Admitting Physician: Ciro Jeter Primary Care Provider: Gomez Chris NP Chief Complaint: SOB History of Present Illness Pleasant 61-year-old gentleman with diastolic congestive heart failure, PATRICIO- hypopnea syndrome on nightly ventilator, morbid obesity, at baseline on 4 L nasal cannula, other comorbidities as per medical history, presented due to 2 days of shortness of breath, reported saturation in 70s by EMS, on arrival hypoxic, with wheezing, symptoms did not respond to breathing treatment at home. Reports sputum productive of green phlegm. Denies chest pain or pressure. Reports may have missed some doses of his diuretics. Quite edematous. Afebrile, without leukocytosis, with unremarkable COVID-19 panel, influenza, mild elevation of troponin, 53-52. Elevated NT proBNP 4559, higher than prior 1799. Chest x-ray with cardiomegaly, pulmonary vascular congestion and interstitial edema, minimal patchy groundglass airspace opacity reflecting alveolar edema and/or pneumonic infiltrates. CTA chest negative for PE, noted cardiomegaly, coronary atherosclerosis, prominent interstitial lymph nodes measuring up to 15 mm, nonspecific, small bilateral pleural effusions, bilateral dependent atelectasis versus infiltrate. Received breathing treatment, IV Solu-Medrol, dose of Lasix in ER. Review of Systems Const: Denies: fever(s), chills, body aches or malaise Eyes: Denies: change in vision, eye discomfort or eye redness ENMT: Denies: throat pain, oral sores or ear or mastoid pain Card: Reports: edema and dyspnea on exertion; Denies: chest pain or pre-syncope Resp: Reports: dyspnea, productive cough, wheezing and change in phlegm color; Denies: hemoptysis GI: Denies: abdominal pain, nausea, vomiting, diarrhea, constipation, hematochezia or melena : Denies: flank pain, difficulty urinating, urinary frequency or hematuria Musc: Denies: back pain, joint swelling or joint redness Skin/Breast: Denies: rash or new lesions Neuro: Denies: headache(s), numbness in extremities, weakness in extremities, dizziness, confusion or seizure-like activity Endo: Denies: polyuria or polydipsia Jhon/Lymph: Denies: easy bleeding or tender lymph nodes All/Imm: Denies: urticaria or tongue swelling Medications/Allergies Home Medications Medication Instructions Recorded Confirmed Last Taken Type amlodipine 5 mg-benazepril 20 mg 1 cap PO DAILY 03/22/20 09/19/21 04/26/21 History capsule atorvastatin 80 mg tablet 80 mg PO BEDTIME 03/22/20 09/19/21 04/26/21 History baclofen 10 mg tablet 10 mg PO TID PRN 03/22/20 09/19/21 Unknown History clopidogrel 75 mg tablet 75 mg PO DAILY 03/22/20 09/19/21 04/26/21 History gabapentin 300 mg capsule 300 mg PO TID 03/22/20 09/19/21 04/26/21 History pantoprazole 40 mg tablet,delayed 40 mg PO DAILY 03/22/20 09/19/21 04/26/21 History release sertraline 50 mg tablet 50 mg PO DAILY 03/22/20 09/19/21 04/26/21 History acetaminophen 500 mg tablet 500 - 1,000 mg PO Q6H PRN 03/23/20 09/19/21 Unknown History (Tylenol Extra Strength) diclofenac sodium 50 mg 50 mg PO TID PRN 03/23/20 09/19/21 Unknown History tablet,delayed release docusate sodium 100 mg capsule 100 mg PO DAILY PRN 03/23/20 09/19/21 Unknown History (Colace) cyanocobalamin (vitamin B-12) 50 50 mcg PO DAILY 04/27/21 09/19/21 04/26/21 History mcg tablet (Vitamin B-12) fenofibrate 54 mg tablet 54 mg PO DAILY 04/27/21 09/19/21 04/26/21 History albuterol sulfate 90 mcg/actuation 1 puff INHALATION Q4H PRN 06/13/21 09/19/21 Unknown History aerosol inhaler furosemide 20 mg tablet 20 mg PO DAILY #30 tab 06/16/21 09/19/21 Unknown Rx chlorthalidone 50 mg tablet 50 mg PO DAILY 09/19/21 09/19/21 Unknown History diphenhydramine HCl 25 mg tablet 25 mg PO DAILY PRN 09/19/21 09/19/21 Unknown History (Allergy Relief (diphenhydramine)) ekziwdua-twg-jalul acid 300 1 tab PO DAILY 09/19/21 09/19/21 Unknown History mcg-lycopene 600 mcg-lutein 300 mcg tablet (Centrum Silver Men) tiotropium 2.5 mcg-olodaterol 2.5 2 puff INHALATION DAILY 09/19/21 09/19/21 Unknown History mcg/actuation mist for inhalation (Stiolto Respimat) Allergies Allergy/AdvReac Type Severity Reaction Status Date / Time No Known Allergies Allergy Verified 09/19/21 14:27 PFSH Acute PFSH: Medical History Acute hypercapnic respiratory failure Acute hypercapnic respiratory failure Acute respiratory distress Chronic diastolic CHF (congestive heart failure) Chronic hypercapnic respiratory failure CVA (cerebral vascular accident) -about 1 yr ago, on DAPT Depression with anxiety Dyspnea GERD (gastroesophageal reflux disease) -on PPI Hyperlipidemia Hypertension Morbid obesity -BMI-39 kg/m2 Obstructive sleep apnea Ulnar neuropathy of both upper extremities Surgical History No significant past surgical history Family History Mother Alzheimer's dementia Social History Quit status (tobacco): has quit using tobacco Year quit tobacco: 2019 - 1PPD x 40 Years Second hand smoke exposure: No Alcohol intake: current Alcohol intake frequency: few times a week Alcohol type: beer Lives independently: Yes Household members: spouse Marital status: Current occupational status: disabled History of recent travel: No Current gender identity: Male Vitals/I&O/Wt Last Vital Signs Temp 98.3 F 09/19/21 17:31 Pulse 86 09/19/21 17:31 Resp 18 09/19/21 17:31 BP 138/79 09/19/21 17:31 Pulse Ox 91 09/19/21 17:31 Weight last 48 hrs Weight 115.666 kg Physical Exam Const: COMMON NORMALS: alert GENERAL APPEARANCE: cooperative NUTRITIONAL APPEARANCE: obese ORIENTATION/CONSCIOUSNESS: Yes awake HENMT: COMMON NORMALS: normocephalic, EAC's normal, Normal external nose present and moist oral mucous membranes HEAD & SCALP: normocephalic NOSE: Normal external nose present EXTERNAL AUDITORY CANAL: EAC's normal Neck/C-Spine: COMMON NORMALS: no meningeal signs Chest: CHEST: Yes Symmetrical chest wall rise Resp: AUSCULTATION: diminished lung sounds Cardio: COMMON NORMALS: regular rate, regular rhythm and No murmurs present (Cardio) RATE: regular rate RHYTHM: regular rhythm GI: COMMON NORMALS: Normal to inspection, nondistended, normoactive bowel s ounds present, Soft to palpation and non-tender PALPATION: Yes Soft to pa lpation Extremity: GENERAL: Yes edema (2-3+) Neuro: COMMON NORMALS: moves all extremities SENSORIUM/ORIENTATION: Yes alert MENINGEAL SIGNS: Yes no meningeal signs Psych: COMMON NORMALS: mental status grossly normal Skin: COMMON NORMALS: no wounds RASHES: no rashes Data : 09/19/21 15:05 09/19/21 15:05 A&P Assessment and plan (1) Acute on chronic respiratory failure with hypoxia and hypercapnia: Hypoxic on presentation, dyspnea, with cough productive of green sputum, acute bronchitis, also CHF exacerbation, underlying PATRICIO, hypoventilation syndrome. ABG 7.32/59.8/57.7. Denies chest pain or pressure. Mild elevation of troponin, but without rise, no sign of acute RI. Received Lasix 80 mg daily continue 60 mg twice daily. Monitor OPAL. Cardiac diet. Given symptomatic acute bronchitis, with hypoxia, wheezing on presentation, c ontinue IV steroids for now, Solu-Medrol 20 mg 3 times daily, empiric antibiotic coverage with ceftriaxone. Collect sputum culture. Breathing treatments. Flutter valve. I-S. No PE on CTA, noted cardiomegaly, prominent mediastinal lymph nodes measuring up to 15 mm. Bilateral dependent atelectasis versus infiltrate noted. Cannot entirely exclude pneumonia, but less likely. No signs of sepsis. Monitor for changes. Status: Acute (2) CHF exacerbation: As above Status: Acute (3) Acute bronchitis: As above Status: Acute (4) Troponin level elevated: Complete troponin and EKG series Status: Acute Plan PATRICIO-hypoventilation syndrome: AVAPS nightly. Uses ventilator at home. History of CVA Depression anxiety Obesity GERD Other comorbidities noted Attestations Medical Necessity Statement*: Admission of over 2 midnights is anticipated for assessment of management of acute on chronic hypoxic and hypercapnic respiratory failure with CHF exacerbation, acute bronchitis. Coding Level of Care Code Acute Judge'S Clerk for [facility] Fwd Exam Comprehensive Diagnoses Acute on chronic respiratory failure with hypoxia and hypercapnia J96.21; J96.22 CHF exacerbation I50.9 Acute bronchitis J20.9 Troponin level elevated R77.8
[2021-09-19] MEDS: cefTRIAXone 1,000 MG in sodium chloride 0.9% (plus) 50 ML 100 MG IV (18:47)
[2021-09-19] MEDS: atorvastatin 40 mg Tablet 80 MG PO (20:00)
[2021-09-19] MEDS: enoxaparin 40 mg/0.4 mL Syringe SUBCUT (20:00)
[2021-09-19] MEDS: gabapentin 300 mg Capsule PO (20:00)
[2021-09-19 21:41] LABS: Troponin 5 6HR 43.91 ng/L (0-15)
[2021-09-19 21:52] LABS: Troponin 5 6HR Delta -9.09 ng/L (0-12)
[2021-09-20] VITALS (16 sets, daily range): BP systolic 108–153; BP diastolic 64–88; PULSE 66–102; RESP 12–20; TEMP 36.5–36.9; O2SAT 95–99
[2021-09-20] MEDS: ipratropium-albuterol 3 mL Neb INHALATION ×4 (02:23→21:20)
[2021-09-20 04:46] LABS: Basophils % 0.1 %; Hematocrit 35.9 % (42.0-52.0); Hemoglobin 10.4 g/dL (11.7-16.6); Lymphocytes # 0.7 10^3/uL (0.8-4.8); Lymphocytes % 9.7 %; Mean Corpuscular Hemoglobin 27.2 pg (28.0-34.0); Mean Corpuscular Volume 93.7 fl (80-94); Mean Platelet Volume 9.7 fL (7.4-10.4); Monocytes # 0.3 10^3/uL (0.2-0.9); Monocytes % 3.7 %; Neutrophils # 5.82 10^3/uL (1.8-7.7); Neutrophils % 85.5 %; Nucleated Red Blood Cells % 0.4 %; Platelet Count 182 10^3/cmm (130-400); Red Blood Count 3.83 10^6/uL (4.1-5.3); Red Cell Distribution Width 14.6 % (12.1-15.1); White Blood Count 6.8 10^3/uL (4.0-10.0)
[2021-09-20 05:09] LABS: Alanine Aminotransferase 24 U/L (0-41); Albumin Level 3.8 g/dL (3.5-5.2); Alkaline Phosphatase 68 IU/L (40-130); Aspartate Amino Transferase 17 U/L (0-40); Blood Urea Nitrogen 26 mg/dL (8-23); Calcium 9.6 mg/dL (8.5-10.5); Carbon Dioxide 32 mmol/L (22-29); Chloride 101 mmol/L (98-107); Globulin 3.5 g/dL (1.3-4.6); Glomerular Filtration Rate 67.8 mL/min (90-130); Glucose 157 mg/dL (65-115); Osmolality Calculated 302 mOsm/kg (285-295); Sodium 142 mmol/L (136-145); Total Bilirubin 0.2 mg/dL (0.15-1.2); Total Protein 7.3 g/dL (6.6-8.7)
[2021-09-20 05:11] LABS: Anion Gap 13.7 (5-19); Potassium 4.7 mmol/L (3.5-5.1)
[2021-09-20] MEDS: FUROsemide 10 mg/mL SDV 10mL 60 MG IVP ×2 (06:00→15:54)
[2021-09-20] MEDS: sertraline 50 mg Tablet PO (07:56)
[2021-09-20] MEDS: gabapentin 300 mg Capsule PO ×3 (07:57→20:08)
[2021-09-20] MEDS: amlodipine 5 mg Tablet PO (07:57)
[2021-09-20] MEDS: pantoprazole DR 40 mg Tablet PO (07:57)
[2021-09-20] MEDS: lisinopril 20 mg Tablet PO (07:57)
[2021-09-20] MEDS: clopidogrel 75 mg Tablet PO (07:57)
--- NOTE | 2021-09-20 16:30 | PM.PN ---
Subjective Subjective: He is feeling slightly better today. Denies chest pain or pressure. Breathing slowly improving. Edema persists in lower extremities, but slightly better. Vitals/I&O/Wt Last Vital Signs Temp 97.9 F 09/20/21 15:38 Pulse 102 H 09/20/21 15:38 Resp 16 09/20/21 15:38 BP 145/69 09/20/21 15:38 Pulse Ox 96 09/20/21 15:38 09/20/21 09/20/21 09/20/21 06:59 14:59 22:59 Intake Total 60 / 535 220 / 220 Output Total 1500 / 1500 Balance 60 / -65 -1280 / -1280 Weight last 48 hrs Weight 115.666 kg Weight 115.666 kg Physical Exam Const: COMMON NORMALS: alert GENERAL APPEARANCE: cooperative NUTRITIONAL APPEARANCE: obese ORIENTATION/CONSCIOUSNESS: Yes awake HENMT: COMMON NORMALS: normocephalic, EAC's normal, Normal external nose present and moist oral mucous membranes HEAD & SCALP: normocephalic NOSE: Normal external nose present EXTERNAL AUDITORY CANAL: EAC's normal Neck/C-Spine: COMMON NORMALS: no meningeal signs Chest: CHEST: Yes Symmetrical chest wall rise Resp: AUSCULTATION: diminished lung sounds Cardio: COMMON NORMALS: regular rate, regular rhythm and No murmurs present (Cardio) RATE: regular rate RHYTHM: regular rhythm GI: COMMON NORMALS: Normal to inspection, nondistended, normoactive bowel sounds present, Soft to palpation and non-tender PALPATION: Yes Soft to palpation Extremity: GENERAL: Yes edema (2-3+) Neuro: COMMON NORMALS: moves all extremities SENSORIUM/ORIENTATION: Yes alert MENINGEAL SIGNS: Yes no meningeal signs Psych: COMMON NORMALS: mental status grossly normal Skin: COMMON NORMALS: no wounds RASHES: no rashes Data : 09/20/21 04:30 09/20/21 04:30 A&P Assessment and plan (1) Acute on chronic respiratory failure with hypoxia and hypercapnia: He is in negative balance, with some subjective improvement, with persistent edema. Continue diuresis for treatment of CHF exacerbation. For symptomatic acute bronchitis, continue ceftriaxone, decrease Solu-Medrol dose. Collect sputum culture. Breathing treatments. Flutter valve. I-S. Hypoxic on presentation, dyspnea, with cough productive of green sputum, acute bronchitis, also CHF exacerbation, underlying PATRICIO, hypoventilation syndrome. No PE on CTA, noted cardiomegaly, prominent mediastinal lymph nodes measuring up to 15 mm. Bilateral dependent atelectasis versus infiltrate noted. Cannot entirely exclude pneumonia, but less likely. No signs of sepsis. Monitor for changes. Status: Acute (2) CHF exacerbation: As above Status: Acute (3) Acute bronchitis: As above Status: Acute (4) Troponin level elevated: Noted chronically elevated troponin, troponin series without peak. No chest pain. EKG not suggestive of ND. Suspect demand ischemia. Status: Acute Plan PATRICIO-hypoventilation syndrome: AVAPS nightly. Uses ventilator at home. History of CVA Depression anxiety Obesity GERD Other comorbidities noted Attestations Medical Necessity Statement*: Continue admission for assessment management of CHF exacerbation, acute bronchitis. Coding Level of Care Code Acute Special Needs Tutor for [facility] Fwd Diagnoses Acute on chronic respiratory failure with hypoxia and hypercapnia J96.21; J96.22 CHF exacerbation I50.9 Acute bronchitis J20.9 Troponin level elevated R77.8
[2021-09-20] MEDS: cefTRIAXone 1,000 MG in sodium chloride 0.9% (plus) 50 ML 100 MG IV (18:16)
[2021-09-20] MEDS: enoxaparin 40 mg/0.4 mL Syringe SUBCUT (18:19)
[2021-09-20] MEDS: atorvastatin 40 mg Tablet 80 MG PO (20:07)
[2021-09-21] VITALS (9 sets, daily range): BP systolic 131–142; BP diastolic 72–75; PULSE 64–74; RESP 15–18; TEMP 36.4–36.7; O2SAT 92–98
--- NOTE | 2021-09-21 01:17 | PC.NURSE ---
Pt lying in bed resting with eyes closed. Pt resp even and non-labored no distress noted. Pt had no c/o pain or discomfort at the present time. No needs voiced. Call light in reach.
[2021-09-21] MEDS: ipratropium-albuterol 3 mL Neb INHALATION ×3 (03:50→15:30)
[2021-09-21 04:56] LABS: Basophils % 0.1 %; Hematocrit 35.1 % (42.0-52.0); Hemoglobin 10.2 g/dL (11.7-16.6); Lymphocytes % 12.9 %; Mean Corpuscular HGB Conc 29.1 g/dL (30.0-36.0); Mean Corpuscular Hemoglobin 27.1 pg (28.0-34.0); Mean Corpuscular Volume 93.1 fl (80-94); Monocytes # 0.8 10^3/uL (0.2-0.9); Monocytes % 10.3 %; Neutrophils # 6.14 10^3/uL (1.8-7.7); Neutrophils % 76.3 %; Nucleated Red Blood Cells % 0 %; Platelet Count 204 10^3/cmm (130-400); Red Blood Count 3.77 10^6/uL (4.1-5.3); Red Cell Distribution Width 14.4 % (12.1-15.1); White Blood Count 8.1 10^3/uL (4.0-10.0)
[2021-09-21 05:19] LABS: Blood Urea Nitrogen 38 mg/dL (8-23); Calcium 9.3 mg/dL (8.5-10.5); Carbon Dioxide 35 mmol/L (22-29); Chloride 101 mmol/L (98-107); Glomerular Filtration Rate 61.3 mL/min (90-130); Glucose 136 mg/dL (65-115); Magnesium 2.6 mg/dL (1.7-2.3); Osmolality Calculated 309 mOsm/kg (285-295); Sodium 144 mmol/L (136-145)
[2021-09-21 05:21] LABS: Anion Gap 12.4 (5-19); Potassium 4.4 mmol/L (3.5-5.1)
[2021-09-21] MEDS: FUROsemide 10 mg/mL SDV 10mL 60 MG IVP ×2 (09:34→15:02)
[2021-09-21] MEDS: lisinopril 20 mg Tablet PO (09:39)
[2021-09-21] MEDS: gabapentin 300 mg Capsule PO ×2 (09:39→15:54)
[2021-09-21] MEDS: sertraline 50 mg Tablet PO (09:39)
[2021-09-21] MEDS: pantoprazole DR 40 mg Tablet PO (09:39)
[2021-09-21] MEDS: amlodipine 5 mg Tablet PO (09:40)
[2021-09-21] MEDS: clopidogrel 75 mg Tablet PO (09:40)
--- NOTE | 2021-09-21 12:46 | PM.DCS ---
Discharge Providers Date of Admission: 09/19/21 15:44 Date of Discharge: September 21, 2021 Attending Provider at Admission: Ciro Jeter Attending Provider at Discharge: Ciro Jeter Primary Care Provider: Gomez Chris NP Diagnoses at Discharge Discharge Diagnosis (1) Acute on chronic respiratory failure with hypoxia and hypercapnia: Status: Acute (2) CHF exacerbation: Status: Acute (3) Acute bronchitis: Status: Acute (4) Troponin level elevated: Status: Acute Reason for Visit Reason for Visit: SOB Brief History: Pleasant 61-year-old gentleman with diastolic congestive heart failure, PATRICIO-hypopnea syndrome on nightly ventilator, morbid obesity, at baseline on 4 L nasal cannula, other comorbidities as per medical history, presented due to 2 days of shortness of breath, reported saturation in 70s by EMS, on arrival hypoxic, with wheezing, symptoms did not respond to breathing treatment at home. Reports sputum productive of green phlegm.? Denies chest pain or pressure.? Reports may have missed some doses of his diuretics.? Quite edematous. Afebrile, without leukocytosis, with unremarkable COVID-19 panel, influenza, mild elevation of troponin, 53-52.? Elevated NT proBNP 4559, higher than prior 1799. Chest x-ray with cardiomegaly, pulmonary vascular congestion and interstitial edema, minimal patchy groundglass airspace opacity reflecting alveolar edema and/or pneumonic infiltrates. CTA chest negative for PE, noted cardiomegaly, coronary atherosclerosis, prominent interstitial lymph nodes measuring up to 15 mm, nonspecific, small bilateral pleural effusions, bilateral dependent atelectasis versus infiltrate. Hospital Course Hospital Course In the hospital he underwent treatment with IV diuresis for CHF with improvement in his symptoms, edema, has been in negative balance. Received also treatment with IV steroid, empiric antibiotic for acute bronchitis with ceftriaxone, breathing treatments. Continued on CPAP which he says he uses every night without exception. His oxygen requirement improved from the initial 6 L, down to 2 L by nasal cannula. He has been getting up and ambulating in his room. He reports he feels much better, feels comfortable returning home. He continues on oral diuretics. With some increase in BUN, creatinine slight bump to 1.2, please reassess renal function. He is asked to hold back. He will complete antibiotic course with cefdinir for acute bronchitis, prednisone taper. He is asked to resume follow-up with pulmonology. Please continue to work with him toward weight loss. Physical Exam Const: COMMON NORMALS: alert GENERAL APPEARANCE: cooperative and comfortable NUTRITIONAL APPEARANCE: obese ORIENTATION/CONSCIOUSNESS: Yes awake HENMT: COMMON NORMALS: normocephalic, EAC's normal, Normal external nose present and moist oral mucous membranes HEAD & SCALP: normocephalic NOSE: Normal external nose present EXTERNAL AUDITORY CANAL: EAC's normal Neck/C-Spine: COMMON NORMALS: no meningeal signs Chest: CHEST: Yes Symmetrical chest wall rise Resp: EFFORT & INSPECTION: Yes able to speak in complete sentences AUSCULTATION: diminished lung sounds Cardio: COMMON NORMALS: regular rate, regular rhythm and No murmurs present (Cardio) RATE: regular rate RHYTHM: regular rhythm GI: COMMON NORMALS: Normal to inspection, nondistended, normoactive bowel sounds present, Soft to palpation and non-tender PALPATION: Yes Soft to palpation Extremity: GENERAL: Yes edema (1+) Neuro: COMMON NORMALS: moves all extremities SENSORIUM/ORIENTATION: Yes alert MENINGEAL SIGNS: Yes no meningeal signs Psych: COMMON NORMALS: mental status grossly normal Skin: COMMON NORMALS: no wounds RASHES: no rashes Discharge Data Studies Completed and Pending Completed Studies During Hospitalization Category Date Time Status CTA chest [CT angio chest PE protcl [id number]] Urgent Cat Scan 09/19/21 15:43 Completed XR chest 2V* [id number] Stat Exams 09/19/21 14:29 Completed Pending at discharge Category Date Time Status Basic Metabolic Panel AM LABS Lab 09/22/21 04:00 Ordered Basic Metabolic Panel AM LABS Lab 09/23/21 04:00 Ordered Complete Blood Count w/Auto AM LABS Lab 09/22/21 04:00 Ordered Complete Blood Count w/Auto AM LABS Lab 09/23/21 04:00 Ordered Sputum Culture and Gram Stain Routine Lab 09/19/21 19:25 Uncollected Radiology Impressions Chest X-Ray 09/19/21 14:29 IMPRESSION: 1. Cardiomegaly. 2. Pulmonary vascular congestion and interstitial edema. 3. Minimal patchy ground-glass airspace opacities reflecting alveolar edema and/or pneumonic infiltrates. Chest CTA 09/19/21 15:43 IMPRESSION: 1. Negative for pulmonary embolus. 2. Cardiomegaly. 3. Coronary artery atherosclerotic calcifications. 4. Prominent mediastinal lymph nodes measuring up to 15 mm, nonspecific. 5. Small bilateral pleural effusions. 6. Bilateral dependent atelectasis versus infiltrate. Laboratory Results WBC 8.1 10^3/uL (4.0-10.0) 09/21/21 03:52 RBC 3.77 10^6/uL (4.1-5.3) L 09/21/21 03:52 Hgb 10.2 g/dL (11.7-16.6) L 09/21/21 03:52 Hct 35.1 % (42.0-52.0) L 09/21/21 03:52 MCV 93.1 fl (80-94) 09/21/21 03:52 MCH 27.1 pg (28.0-34.0) L 09/21/21 03:52 MCHC 29.1 g/dL (30.0-36.0) L 09/21/21 03:52 RDW 14.4 % (12.1-15.1) 09/21/21 03:52 Plt Count 204 10^3/cmm (130-400) 09/21/21 03:52 MPV 10.0 fL (7.4-10.4) 09/21/21 03:52 Neut % (Auto) 76.3 % 09/21/21 03:52 Lymph % (Auto) 12.9 % 09/21/21 03:52 [place] % (Auto) 10.3 % 09/21/21 03:52 Eos % (Auto) 0.0 % 09/21/21 03:52 Baso % (Auto) 0.1 % 09/21/21 03:52 Neut # (Auto) 6.14 10^3/uL (1.8-7.7) 09/21/21 03:52 Lymph # (Auto) 1.0 10^3/uL (0.8-4.8) 09/21/21 03:52 [place] # (Auto) 0.8 10^3/uL (0.2-0.9) 09/21/21 03:52 Eos # (Auto) 0.0 10^3/uL (0.0-0.8) 09/21/21 03:52 Baso # (Auto) 0.0 10^3/uL (0.0-0.1) 09/21/21 03:52 Nucleated RBC % (auto) 0 % 09/21/21 03:52 Nucleated RBCs # 0.0 /100WBC 09/21/21 03:52 D-Dimer 0.64 ug/mIFEU (0-0.59) H 09/19/21 15:05 Specimen Type Arterial 09/19/21 14:59 Sample Site Radial, left 09/19/21 14:59 ABG pH 7.32 (7.35-7.45) L 09/19/21 14:59 ABG pCO2 59.8 mmHg (35-45) H 09/19/21 14:59 ABG pO2 57.7 mmHg (80.0-100.0) L 09/19/21 14:59 ABG HCO3 30.6 mmol/L (22-26) H 09/19/21 14:59 ABG Base Excess 3.4 mmol/L (-2.0-2.0) H 09/19/21 14:59 Kai Test Pos 09/19/21 14:59 Hematocrit 30.7 % (42-52) L 09/19/21 14:59 O2 Delivery Device Nc 09/19/21 14:59 O2 Liters/Min 5.0 % 09/19/21 14:59 Wheel Polisher ID Cak 09/19/21 14:59 Sodium 144 mmol/L (136-145) 09/21/21 03:52 Potassium 4.4 mmol/L (3.5-5.1) 09/21/21 03:52 Chloride 101 mmol/L (98-107) 09/21/21 03:52 Carbon Dioxide 35 mmol/L (22-29) H 09/21/21 03:52 Anion Gap 12.4 (5-19) 09/21/21 03:52 BUN 38 mg/dL (8-23) H 09/21/21 03:52 Creatinine 1.2 mg/dL (0.7-1.2) 09/21/21 03:52 GFR Calculation 61.3 mL/min (90-130) L 09/21/21 03:52 Glucose 136 mg/dL (65-115) H 09/21/21 03:52 Calculated Osmolality 309 mOsm/kg (285-295) H 09/21/21 03:52 Calcium 9.3 mg/dL (8.5-10.5) 09/21/21 03:52 Magnesium 2.6 mg/dL (1.7-2.3) H 09/21/21 03:52 Total Bilirubin 0.2 mg/dL (0.15-1.2) 09/20/21 04:30 AST 17 U/L (0-40) 09/20/21 04:30 ALT 24 U/L (0-41) 09/20/21 04:30 Alkaline Phosphatase 68 IU/L (40-130) 09/20/21 04:30 Troponin T Baseline 53 ng/L (0-15) H 09/19/21 15:05 Troponin T 120 Minute 52.27 ng/L (0-15) H 09/19/21 16:22 Delta Troponin T -0.73 ABS# (0-10) L 09/19/21 16:22 Troponin T Hi Sens 6Hr 43.91 ng/L (0-15) H 09/19/21 20:45 Troponin T Hi Sens 6Hr Delta -9.09 ng/L (0-12) L 09/19/21 20:45 NT-Pro-B Natriuret Pep 4559 pg/mL (0-125) H 09/19/21 15:05 Total Protein 7.3 g/dL (6.6-8.7) 09/20/21 04:30 Albumin 3.8 g/dL (3.5-5.2) 09/20/21 04:30 Globulin 3.5 g/dL (1.3-4.6) 09/20/21 04:30 Nasal Influ A H1 2008 PCR Not detected (NOT DETECT) 09/19/21 15:05 Coronavirus 229E (PCR) Not detected (NOT DETECT) 09/19/21 15:05 Influenza A (H1) PCR Not detected (NOT DETECT) 09/19/21 15:05 Influenza A (H3) PCR Not detected (NOT DETECT) 09/19/21 15:05 Influenza Type A (PCR) Not detected (NOT DETECT) 09/19/21 15:05 Influenza Type B (PCR) Not detected (NOT DETECT) 09/19/21 15:05 SARS-CoV-2 (PCR) Not detected (NOT DETECT) 09/19/21 15:05 Vitals Last Vital Signs Temp 98.1 F 09/21/21 12:00 Pulse 70 09/21/21 12:00 Resp 18 09/21/21 12:00 BP 131/72 09/21/21 12:00 Pulse Ox 94 09/21/21 12:00 Discharge Plan Discharge Patient Disposition: Home Condition: Stable Prescriptions: New cefdinir 300 mg capsule 300 mg PO BID 5 Days Qty: 10 0RF prednisone 10 mg tablet 5 mg PO DAILY Qty: 20 0RF Rx Instructions: 3 tab daily for 3 days, then 2 tab for 3 days, then 1 tab for 3 days, then 1/2 tab for 3 days. Continued albuterol sulfate 90 mcg/actuation HFA aerosol inhaler 1 puff inhalation Q4H PRN (Reason: Shortness Of Breath) 0RF furosemide 20 mg tablet 20 mg PO DAILY Qty: 30 5RF Vitamin B-12 50 mcg Tablet 50 mcg PO DAILY 0RF fenofibrate 54 mg tablet 54 mg PO DAILY 0RF amlodipine-benazepril 5-20 mg capsule 1 cap PO DAILY 0RF gabapentin 300 mg capsule 300 mg PO TID 0RF atorvastatin 80 mg tablet 80 mg PO BEDTIME 0RF baclofen 10 mg tablet 10 mg PO TID PRN (Reason: Pain) 0RF clopidogrel 75 mg tablet 75 mg PO DAILY 0RF sertraline 50 mg tablet 50 mg PO DAILY 0RF pantoprazole 40 mg tablet,delayed release (DR/EC) 40 mg PO DAILY 0RF acetaminophen [Tylenol Extra Strength] 500 mg Tablet 500 - 1,000 mg PO Q6H PRN (Reason: Pain) 0RF docusate sodium [Colace] 100 mg Capsule 100 mg PO DAILY PRN (Reason: Constipation) 0RF chlorthalidone 50 mg tablet 50 mg PO DAILY 0RF Allergy Relief(diphenhydramin) 25 mg Tablet 25 mg PO DAILY PRN (Reason: Allergy Symptoms) 0RF Centrum Silver Men 300-600-300 mcg Tablet 1 tab PO DAILY 0RF Stiolto Respimat 2.5-2.5 mcg/actuation mist 2 puff inhalation DAILY 0RF Held diclofenac sodium 50 mg tablet,delayed release (DR/EC) 50 mg PO TID PRN (Reason: Back Pain) 0RF Hold Instructions: Resume on 09/28/21. Discharge Orders: Discharge Order (Routine); Ordered 09/21/21 Ordered By: Ciro Stanton: Gomez Chris, LEAD JANITOR [Primary Care Provider] - 4-7 days (Please call Gomez Chris's Office at [phone] to schedule a follow up appointment or if you have any questions or concerns. Thank you.) Discharge Diet: Cardiac Discharge Activity: Increase activity as tolerated, Oxygen as instructed and Cpap/Bipap as instructed Patient Instructions: Prednisone (By mouth), Cefdinir (By mouth), Heart Failure (GEN), Acute Bronchitis (GEN), Obesity (GEN) Activity Restrictions/Additional Instructions: Please follow-up with your primary doctor for reassessment of congestive heart failure, acute bronchitis, reassessment of renal function. Hold diclofenac as it may cause kidney injury. Please work with your primary doctor to help with weight loss. Resume follow-up with your lung specialist. Discharge Attestations Time Spent in Discharge Care*: greater than 30 min Status at Discharge: Cognitive status at discharge: cognitively intact, Behavioral status at discharge: cooperative and dependent in ADL's, Quality Metrics Clinical Quality Measures [ No reported AMI, CVA or VTE this stay] Coding Level of Care Code Acute Chg FW DC note Diagnoses Acute on chronic respiratory failure with hypoxia and hypercapnia J96.21; J96.22 CHF exacerbation I50.9 Acute bronchitis J20.9 Troponin level elevated R77.8
== END 2021-09-21 16:00 | disposition home or self-care (01) | DRG 189 ==
LOC: ER 16:36 → MEDSURG 16:38
PROVIDERS: Admitting Provider Internal Medicine; Emergency Provider Emergency Medicine; PCP Nurse Practitioner Family; Visit Provider Internal Medicine
DX: J96.21 Acute and chronic respiratory failure with hypoxia (principal); I50.33 Acute on chronic diastolic (congestive) heart failure; Z68.41 Body mass index [BMI] 40.0-44.9, adult; E66.2 Morbid (severe) obesity with alveolar hypoventilation; J96.22 Acute and chronic respiratory failure with hypercapnia; Z86.73 Personal history of transient ischemic attack (TIA), and cerebral infarction without residual deficits; Z87.891 Personal history of nicotine dependence; I11.0 Hypertensive heart disease with heart failure; E78.5 Hyperlipidemia, unspecified; Z79.02 Long term (current) use of antithrombotics/antiplatelets; F41.9 Anxiety disorder, unspecified; F32.A Depression, unspecified; K21.9 Gastro-esophageal reflux disease without esophagitis; J20.9 Acute bronchitis, unspecified; R77.8 Other specified abnormalities of plasma proteins; Z99.81 Dependence on supplemental oxygen
CPT/HCPCS: 36415; 36600; 71046; 71275; 80048; 80053; 82803; 83735; 83880; 84484; 85025; 85378; 87631; 87635; 93005; 94640; 94660; 96372; 96374; 96375; 99285; J0696; J1650; J1940; J2920; J2930; Q9967

== ENCOUNTER 2021-10-04 17:36 | Observation (INO) | payer MEDICARE, MEDICAID, SELFPAY ==
[2021-10-04 17:38] VITALS: BP 103/61; PULSE 63; RESP 20; TEMP 36.6; O2SAT 96
--- NOTE | 2021-10-04 19:19 | W.ED.GENADLT ---
HPI - General Adult General: Chief complaint: General Medical Stated complaint: Body jerks, weakness in legs Time Seen by Provider: 10/04/21 19:19 History of Present Illness: Mr. De La Paz is a 61-year-old gentleman with history of obesity hypoventilation, history of hypertension, hyperlipidemia, diastolic heart failure, tobaccoism with COPD who presents to the emergency department due to mental status changes and twitching. Reports symptoms have progressively worsened over the past week. He notes random episodes where he has bilateral twitches of upper and lower extremities. Additionally endorses neck pain, extreme fatigue including hypersomnolence, and generalized malaise. He denies infectious symptoms, no chest pain, shortness of breath, abdominal symptoms. He reports adequate p.o. intake. Overall course of symptoms has been worsening. Intensity is moderate to severe. Does have a history of stroke with right-sided residual sensory changes. No history of seizures. No other specific changes in health, exacerbating, or alleviating factors identified. Onset (ago): day(s) Severity: severe Relieving factors: none Exacerbating factors: none Review of Systems General: Reports: 10 or more systems reviewed and unremarkable except in HPI and below PFS ED PFSH: Medical History Acute hypercapnic respiratory failure Acute hypercapnic respiratory failure Acute respiratory distress Chronic diastolic CHF (congestive heart failure) Chronic hypercapnic respiratory failure CVA (cerebral vascular accident) -about 1 yr ago, on DAPT Depression with anxiety Dyspnea GERD (gastroesophageal reflux disease) -on PPI Hyperlipidemia Hypertension Morbid obesity -BMI-39 kg/m2 Obstructive sleep apnea Ulnar neuropathy of both upper extremities Surgical History No significant past surgical history Family History Mother Alzheimer's dementia Social History Quit status (tobacco): has quit using tobacco Year quit tobacco: 2019 - 1PPD x 40 Years Second hand smoke exposure: No Alcohol intake: current Alcohol intake frequency: few times a week Alcohol type: beer Lives independently: Yes Household members: spouse Marital status: Current occupational status: disabled History of recent travel: No Current gender identity: Male Physical Exam Const: COMMON NORMALS: alert GENERAL APPEARANCE: cooperative and well developed HENMT: COMMON NORMALS: normocephalic and atraumatic HEAD & SCALP: normocephalic and atraumatic Eye: COMMON NORMALS: conjunctivae normal CONJUNCTIVA: Yes conjunctivae normal SCLERA: sclerae normal Neck/C-Spine: COMMON NORMALS: supple and no meningeal signs GENERAL: Yes trachea midline Resp: COMMON NORMALS: normal respiratory effort EFFORT & INSPECTION: Yes able to speak in complete sentences Cardio: COMMON NORMALS: regular rate and regular rhythm RATE: regular rate RHYTHM: regular rhythm GI: COMMON NORMALS: Soft to palpation PALPATION: Yes Soft to palpation and No Tenderness to palpation present (GI) PERCUSSION: normal to percussion Extremity: GENERAL: Yes normal exam except as noted and No edema Neuro: COMMON NORMALS: moves all extremities SENSORIUM/ORIENTATION: Yes alert and No Orientation impaired MENINGEAL SIGNS: Yes no meningeal signs Psych: COMMON NORMALS: mental status grossly normal and Normal thought process present THOUGHT PROCESS: Normal thought process present Course ED course: - Patient was seen and evaluated by me at bedside - Patient placed on cardiac monitors, IV access obtained - Initial evaluation notable for symptoms above. Nonfocal neurologic exam other than baseline however patient appears mildly encephalopathic. - Labs and xrays personally interpreted by me -Fluid bolus given - Labs notable for no leukocytosis, normal hemoglobin. ABG with only minimal elevated PCO2 not significantly high enough to explain symptoms. Metabolic panel notable for LUIS with likely uremia which is consistent with patient's symptoms. - Imaging notable for no lobar consolidation or pneumothorax on chest x-ray. CT head negative for acute pathology to explain symptoms. CT abdomen pelvis without obvious obstruction or cause of patient's LUIS. - Clinical history does not provide a clear reason for LUIS. - Upon serial reexamination after treatment the patient was similar - Based on patient history, evaluation, and testing as interpreted the most likely cause of the patient's condition is LUIS with uremia - The results of ED evaluation were discussed with the patient including plan for admission due to requirement for level of care not available if discharged to prevent significant worsening/deterioration. - Admitting service was contacted and Dr Churchill with the hospitalist service agreed to admit the patient - Patient was admitted without further deterioration or significant events. Note: Click bubbles or prepopulated [place] in note writing are used for assistance with data collection and billing and are inherently more limited than narrative and other text portions of this note. Please use narrative for additional clinical history and defer to narrative/free test for any case of contradictory information. If information appears in only free text or click bubble it should be considered present or absent as reported. Please contact note jingle writer for clarifications of clinical information or contradictory information. MDM is a brief summary, contradictory or erroneous seeming information should be clarified and full note should be reviewed. Vital Signs: Vital signs: Vital Signs Temperature 97.9 F 10/06/21 11:49 Pulse Rate 72 10/06/21 11:49 Respiratory Rate 13 10/06/21 11:49 Blood Pressure 150/74 10/06/21 11:49 Pulse Oximetry 92 10/06/21 11:49 MDM - General Adult Medical Decision Making 61-year-old gentleman presenting with episodes of jerking and confusion found to have LUIS with likely uremia as cause of patient's symptoms. Admitted for further management. Medical Records I reviewed the patient's medical records. Lab Data I reviewed the patient's lab results. : 10/04/21 19:45 10/06/21 08:11 Radiology Impressions Chest X-Ray 10/04/21 19:52 IMPRESSION: No acute findings. Abdomen/Pelvis CT 10/04/21 20:25 IMPRESSION: 1. Normal appearance of the kidneys. No sign of obstruction. 2. 10 mm right middle lobe pulmonary nodule. The nodule was not visible on 09/19/2021. Possible focal consolidation. Recommend follow-up chest CT in 3-6 weeks to evaluate for resolution of the abnormality. 3. 5 mm right lower lobe pulmonary nodule, stable since 10/30/2020. No further imaging follow-up of this nodule is necessary based on Fleischner society criteria. (Reference: Jovita) 4. Incidental findings above. REFERENCES: Jovita H, et al. Guidelines for Management of Incidental Pulmonary Nodules Detected on CT Images: From the Fleischner Society 2017. Radiology. 2017;284(1):228-243. Head CT 10/04/21 20:25 IMPRESSION: No acute intracranial abnormality. Laboratory Results WBC 7.5 10^3/uL (4.0-10.0) 10/04/21 19:45 RBC 4.54 10^6/uL (4.1-5.3) 10/04/21 19:45 Hgb 12.3 g/dL (11.7-16.6) 10/04/21 19:45 Hct 40.8 % (42.0-52.0) L 10/04/21 19:45 MCV 89.9 fl (80-94) 10/04/21 19:45 MCH 27.1 pg (28.0-34.0) L 10/04/21 19:45 MCHC 30.1 g/dL (30.0-36.0) 10/04/21 19:45 RDW 14.4 % (12.1-15.1) 10/04/21 19:45 Plt Count 263 10^3/cmm (130-400) 10/04/21 19:45 MPV 10.0 fL (7.4-10.4) 10/04/21 19:45 Neut % (Auto) 64.8 % 10/04/21 19:45 Lymph % (Auto) 21.1 % 10/04/21 19:45 [place] % (Auto) 10.3 % 10/04/21 19:45 Eos % (Auto) 2.7 % 10/04/21 19:45 Baso % (Auto) 0.3 % 10/04/21 19:45 Neut # (Auto) 4.83 10^3/uL (1.8-7.7) 10/04/21 19:45 Lymph # (Auto) 1.6 10^3/uL (0.8-4.8) 10/04/21 19:45 [place] # (Auto) 0.8 10^3/uL (0.2-0.9) 10/04/21 19:45 Eos # (Auto) 0.2 10^3/uL (0.0-0.8) 10/04/21 19:45 Baso # (Auto) 0.0 10^3/uL (0.0-0.1) 10/04/21 19:45 Nucleated RBC % (auto) 0 % 10/04/21 19:45 Nucleated RBCs # 0.0 /100WBC 10/04/21 19:45 Specimen Type Arterial 10/04/21 20:45 Sample Site Radial, right 10/04/21 20:45 ABG pH 7.32 (7.35-7.45) L 10/04/21 20:45 ABG pCO2 47.4 mmHg (35-45) H 10/04/21 20:45 ABG pO2 66.0 mmHg (80.0-100.0) L 10/04/21 20:45 ABG HCO3 24.6 mmol/L (22-26) 10/04/21 20:45 ABG Base Excess -1.7 mmol/L (-2.0-2.0) 10/04/21 20:45 Kai Test Pos 10/04/21 20:45 Hematocrit 36.7 % (42-52) L 10/04/21 20:45 O2 Delivery Device None 10/04/21 20:45 O2 Liters/Min 2.0 % 10/04/21 20:45 Computer Assistant ID Hensa 10/04/21 20:45 Sodium 141 mmol/L (136-145) 10/04/21 19:45 Potassium 4.5 mmol/L (3.5-5.1) 10/04/21 19:45 Chloride 105 mmol/L (98-107) 10/04/21 19:45 Carbon Dioxide 23 mmol/L (22-29) 10/04/21 19:45 Anion Gap 17.5 (5-19) 10/04/21 19:45 BUN 62 mg/dL (8-23) H 10/04/21 19:45 Creatinine 2.7 mg/dL (0.7-1.2) H 10/04/21 19:45 GFR Calculation 24.1 mL/min (90-130) L 10/04/21 19:45 Glucose 93 mg/dL (65-115) 10/04/21 19:45 POC Glucose 101 mg/dL (70-110) 10/04/21 20:43 Calculated Osmolality 309 mOsm/kg (285-295) H 10/04/21 19:45 Calcium 9.4 mg/dL (8.5-10.5) 10/04/21 19:45 Phosphorus 4.4 mg/dL (2.5-4.5) 10/04/21 19:45 Magnesium 2.5 mg/dL (1.7-2.3) H 10/04/21 19:45 Total Bilirubin 0.2 mg/dL (0.15-1.2) 10/04/21 19:45 AST 13 U/L (0-40) 10/04/21 19:45 ALT 14 U/L (0-41) 10/04/21 19:45 Alkaline Phosphatase 44 IU/L (40-130) 10/04/21 19:45 Ammonia 39 umol/L (16-60) 10/04/21 19:45 NT-Pro-B Natriuret Pep 378 pg/mL (0-125) H 10/04/21 19:45 Total Protein 7.0 g/dL (6.6-8.7) 10/04/21 19:45 Albumin 4.0 g/dL (3.5-5.2) 10/04/21 19:45 Globulin 3.0 g/dL (1.3-4.6) 10/04/21 19:45 TSH 1.35 uIU/mL (0.27-4.20) 10/04/21 19:45 Urine Color Yellow (Yellow) 10/04/21 20:40 Urine Appearance Clear (CLEAR) 10/04/21 20:40 Urine pH 5 (5-7) 10/04/21 20:40 Ur Specific [place] 1.020 (1.005-1.030) 10/04/21 20:40 Urine Protein Neg (Negative) 10/04/21 20:40 Urine Glucose (UA) Norm (Normal) 10/04/21 20:40 Urine Ketones Negative (Negative) 10/04/21 20:40 Urine Blood Neg (Negative) 10/04/21 20:40 Urine Nitrate Negative (Negative) 10/04/21 20:40 Urine Bilirubin Neg (Negative) 10/04/21 20:40 Urine Urobilinogen Norm mg/dL (Negative) 10/04/21 20:40 Ur Leukocyte Esterase Negative (Negative) 10/04/21 20:40 Discharge Plan Discharge Patient Disposition: Placed in Observation Admit Provider: Ruddy Churchill Clinical Impression: LUIS (acute kidney injury), Uremia Discharge Diet: Cardiac Coding Level of Care Code ED Sports Reporter for Chg Fwd Exam Comprehensive
[2021-10-04 19:24] VITALS: BP 110/43; PULSE 61; RESP 18; O2SAT 97
--- NOTE | 2021-10-04 19:52 | XRR_ITS ---
PROCEDURE INFORMATION: Exam: XR Chest Exam date and time: 10/04/2021 8:00 PM Age: 61 years old Clinical indication: Dyspnea; Additional info: Decreased lung sounds left TECHNIQUE: Imaging protocol: XR of the chest. Views: 1 view. COMPARISON: CR XR chest 2V* [id number] 09/19/2021 2:34 PM FINDINGS: Lungs: There is no consolidation. Pleural spaces: There is no pleural effusion or pneumothorax. Heart/Mediastinum: There is mild cardiac enlargement. Diaphragm: There is mild asymmetric elevation of the right hemidiaphragm. Bones/joints: Bones are unremarkable. XR/XR chest 1V portable [id number] IMPRESSION: No acute findings.
[2021-10-04 19:59] LABS: Basophils % 0.3 %; Eosinophils # 0.2 10^3/uL (0.0-0.8); Eosinophils % 2.7 %; Hematocrit 40.8 % (42.0-52.0); Hemoglobin 12.3 g/dL (11.7-16.6); Lymphocytes # 1.6 10^3/uL (0.8-4.8); Lymphocytes % 21.1 %; Mean Corpuscular HGB Conc 30.1 g/dL (30.0-36.0); Mean Corpuscular Hemoglobin 27.1 pg (28.0-34.0); Mean Corpuscular Volume 89.9 fl (80-94); Monocytes # 0.8 10^3/uL (0.2-0.9); Monocytes % 10.3 %; Neutrophils # 4.83 10^3/uL (1.8-7.7); Neutrophils % 64.8 %; Nucleated Red Blood Cells % 0 %; Platelet Count 263 10^3/cmm (130-400); Red Blood Count 4.54 10^6/uL (4.1-5.3); Red Cell Distribution Width 14.4 % (12.1-15.1); White Blood Count 7.5 10^3/uL (4.0-10.0)
[2021-10-04 20:13] LABS: Alanine Aminotransferase 14 U/L (0-41); Alkaline Phosphatase 44 IU/L (40-130); Anion Gap 17.5 (5-19); Aspartate Amino Transferase 13 U/L (0-40); Blood Urea Nitrogen 62 mg/dL (8-23); Calcium 9.4 mg/dL (8.5-10.5); Carbon Dioxide 23 mmol/L (22-29); Chloride 105 mmol/L (98-107); Glomerular Filtration Rate 24.1 mL/min (90-130); Glucose 93 mg/dL (65-115); Magnesium 2.5 mg/dL (1.7-2.3); Osmolality Calculated 309 mOsm/kg (285-295); Potassium 4.5 mmol/L (3.5-5.1); Sodium 141 mmol/L (136-145); Total Bilirubin 0.2 mg/dL (0.15-1.2)
[2021-10-04 20:16] LABS: Ammonia 39 umol/L (16-60)
[2021-10-04 20:22] LABS: NT Pro B Type Natriuretic Pept 378 pg/mL (0-125); Thyroid Stimulating Hormone 1.35 uIU/mL (0.27-4.20)
--- NOTE | 2021-10-04 20:25 | CTR_ITS ---
PROCEDURE INFORMATION: Exam: CT Head Without Contrast Exam date and time: 10/04/2021 8:58 PM Age: 61 years old Clinical indication: Altered mental status/memory loss; Confusion or disorientation; Patient HX: C/O worsening confusion dizziness and twitching x 1 week - HX of stroke; Additional info: Confusion episodes, fall, twitching TECHNIQUE: Imaging protocol: Computed tomography of the head without contrast. Radiation optimization: All CT scans at this facility use at least one of these dose optimization techniques: automated exposure control; mA and/or kV adjustment per patient size (includes targeted exams where dose is matched to clinical indication); or iterative reconstruction. COMPARISON: CT head wo con* [id number] 03/21/2020 11:50 PM RADIATION DOSE METRICS: Total DLP (mGy-cm): 1009.58 FINDINGS: Brain: Normal. No hemorrhage. Unremarkable white matter. No mass effect. Cerebral ventricles: No ventriculomegaly. Paranasal sinuses: Mucosal thickening in the ethmoid and maxillary sinuses. Mastoid air cells: Visualized mastoid air cells are well aerated. Bones/joints: Unremarkable. No acute fracture. Soft tissues: Unremarkable. CT/CT head wo con* [id number] IMPRESSION: No acute intracranial abnormality.
--- NOTE | 2021-10-04 20:25 | CTR_ITS ---
PROCEDURE INFORMATION: Exam: CT Abdomen And Pelvis Without Contrast Exam date and time: 10/04/2021 9:02 PM Age: 61 years old Clinical indication: Abnormal findings; Abnormal lab test; Abnormal kidney function lab tests; Patient HX: Elev bun/creat and bnp; Additional info: Radames, eval obstruction TECHNIQUE: Imaging protocol: Computed tomography of the abdomen and pelvis without contrast. Radiation optimization: All CT scans at this facility use at least one of these dose optimization techniques: automated exposure control; mA and/or kV adjustment per patient size (includes targeted exams where dose is matched to clinical indication); or iterative reconstruction. COMPARISON: CT angio chest PE protcl [id number] 09/19/2021 3:56 PM RADIATION DOSE METRICS: Total DLP (mGy-cm): 1961.3 FINDINGS: Lungs: There is an irregular 10 mm pulmonary nodule in the right middle lobe. There is a noncalcified 5 mm nodule in the right lower lobe. See axial series 3, image 20. Liver: The liver is normal. Gallbladder and bile ducts: The gallbladder is normal. There is no biliary dilation. Pancreas: The pancreas is unremarkable. Spleen: The spleen is unremarkable. Adrenal glands: The adrenal glands are unremarkable. Kidneys and ureters: The kidneys are unremarkable. No hydronephrosis or stones. No ureteral dilation. Stomach and bowel: The stomach is decompressed, preventing meaningful evaluation of wall thickness. The small bowel is nondilated. The colon is unremarkable. Appendix: The appendix is normal. Intraperitoneal space: There is no free air or significant intraperitoneal free fluid. Vasculature: There is mild aortic atherosclerotic disease. Lymph nodes: There is no lymphadenopathy in the retroperitoneum, mesentery, pelvis or inguinal regions. Urinary bladder: The urinary bladder is decompressed, preventing meaningful evaluation of wall thickness. Reproductive: The prostate and seminal vesicles are unremarkable. Bones/joints: Nondisplaced chronic left L5 pars defect. Right L5 pars interarticularis is intact. There is mild degenerative disease in the lumbar spine. There is a serpiginous band of sclerosis in the left femoral head consistent with avascular necrosis. There is no subchondral collapse. The right hip is normal. Joint space is preserved. The bony pelvis is intact. Soft tissues: The abdominal wall is intact. CT/CT kidney stone [id number] IMPRESSION: 1. Normal appearance of the kidneys. No sign of obstruction. 2. 10 mm right middle lobe pulmonary nodule. The nodule was not visible on 09/19/2021. Possible focal consolidation. Recommend follow-up chest CT in 3-6 weeks to evaluate for resolution of the abnormality. 3. 5 mm right lower lobe pulmonary nodule, stable since 10/30/2020. No further imaging follow-up of this nodule is necessary based on Fleischner society criteria. (Reference: Jovita) 4. Incidental findings above. REFERENCES: Jovita Sarmiento, et al. Guidelines for Management of Incidental Pulmonary Nodules Detected on CT Images: From the Fleischner Society 2017. Radiology. 2017;284(1):228-243.
[2021-10-04 20:45] LABS: Glucose Point of Care 101 mg/dL (70-110)
[2021-10-04 20:54] LABS: Add Urine Microscopic? NO; Charge for UA Resulting for Rev
[2021-10-04 20:55] LABS: Bilirubin Urine Neg (Negative); Blood Urine Neg (Negative); Glucose Urine UA Norm (Normal); Ketones Urine Negative (Negative); Leukocyte Esterase Urine Negative (Negative); Nitrate Urine Negative (Negative); Protein Urine Neg (Negative); Urine Appearance Clear (CLEAR); Urine Color Yellow (Yellow); Urobilinogen Urine Norm (Negative); pH Urine 5 (5-7)
[2021-10-04 20:59] LABS: ABG PCO2 47.4 mmHg (35-45); ABG PH Result 7.32 (7.35-7.45); Arterial Blood Gas Hematocrit 36.7 % (42-52); Base Excess ABG -1.7 mmol/L (-2.0-2.0); Blood Gas Allen Test Pos; Blood Gas Sample Site Radial, right; Blood Gas Sample Type Arterial; HCO3 ABG 24.6 mmol/L (22-26)
[2021-10-04] MEDS: sodium chloride 0.9% 1,000 ML 999 ML IV (21:35)
[2021-10-04 21:36] VITALS: BP 118/43; PULSE 59; RESP 18; O2SAT 94
--- NOTE | 2021-10-04 22:22 | P.HP_ITS ---
Providers/Chief Complaint Primary Care Provider: Gomez Chris NP Chief Complaint: Body jerks, weakness in legs History of Present Illness The patient is a 61-year-old male who presents with chief complaint of one-week history of generalized weakness, muscle spasm versus cramping. The patient really offers no other complaint otherwise. He denies fever, rigors, nausea, vomiting, cough, wheeze, abdominal pain, diarrhea, myalgia, chest pain, dyspnea, diplopia, blurry vision, dysphasia, dysphagia. He states that he has chronic right-sided paresthesia due to previous CVA. He denies anesthesia or myasthenia. He admits to lightheadedness. He denies decreased urine output or change in urinary color. He states that his fluid intake is adequate. He presents for further evaluation Review of Systems General: Reports: 10 or more systems reviewed and unremarkable except in HPI and below Medications/Allergies Home Medications Medication Instructions Recorded Confirmed Last Taken Type amlodipine 5 mg-benazepril 20 mg 1 cap PO DAILY 03/22/20 09/19/21 04/26/21 History capsule atorvastatin 80 mg tablet 80 mg PO BEDTIME 03/22/20 09/19/21 04/26/21 History baclofen 10 mg tablet 10 mg PO TID PRN 03/22/20 09/19/21 Unknown History clopidogrel 75 mg tablet 75 mg PO DAILY 03/22/20 09/19/21 04/26/21 History gabapentin 300 mg capsule 300 mg PO TID 03/22/20 09/19/21 04/26/21 History pantoprazole 40 mg tablet,delayed 40 mg PO DAILY 03/22/20 09/19/21 04/26/21 History release sertraline 50 mg tablet 50 mg PO DAILY 03/22/20 09/19/21 04/26/21 History acetaminophen 500 mg tablet 500 - 1,000 mg PO Q6H PRN 03/23/20 09/19/21 Unknown History (Tylenol Extra Strength) diclofenac sodium 50 mg 50 mg PO TID PRN 03/23/20 09/19/21 Unknown History tablet,delayed release docusate sodium 100 mg capsule 100 mg PO DAILY PRN 03/23/20 09/19/21 Unknown History (Colace) cyanocobalamin (vitamin B-12) 50 50 mcg PO DAILY 04/27/21 09/19/21 04/26/21 History mcg tablet (Vitamin B-12) fenofibrate 54 mg tablet 54 mg PO DAILY 04/27/21 09/19/21 04/26/21 History albuterol sulfate 90 mcg/actuation 1 puff INHALATION Q4H PRN 06/13/21 09/19/21 Unknown History aerosol inhaler furosemide 20 mg tablet 20 mg PO DAILY #30 tab 06/16/21 09/19/21 Unknown Rx chlorthalidone 50 mg tablet 50 mg PO DAILY 09/19/21 09/19/21 Unknown History diphenhydramine HCl 25 mg tablet 25 mg PO DAILY PRN 09/19/21 09/19/21 Unknown History (Allergy Relief (diphenhydramine)) [id number] acid 300 1 tab PO DAILY 09/19/21 09/19/21 Unknown History mcg-lycopene 600 mcg-lutein 300 mcg tablet (Centrum Silver Men) tiotropium 2.5 mcg-olodaterol 2.5 2 puff INHALATION DAILY 09/19/21 09/19/21 Unknown History mcg/actuation mist for inhalation (Stiolto Respimat) prednisone 10 mg tablet 5 mg PO DAILY #20 tab 09/21/21 Unknown Rx Allergies Allergy/AdvReac Type Severity Reaction Status Date / Time No Known Allergies Allergy Verified 10/04/21 17:44 PFSH Acute PFSH: Medical History Acute hypercapnic respiratory failure Acute hypercapnic respiratory failure Acute respiratory distress Chronic diastolic CHF (congestive heart failure) Chronic hypercapnic respiratory failure CVA (cerebral vascular accident) -about 1 yr ago, on DAPT Depression with anxiety Dyspnea GERD (gastroesophageal reflux disease) -on PPI Hyperlipidemia Hypertension Morbid obesity -BMI-39 kg/m2 Obstructive sleep apnea Ulnar neuropathy of both upper extremities Surgical History No significant past surgical history Family History Mother Alzheimer's dementia Social History Quit status (tobacco): has quit using tobacco Year quit tobacco: 2019 - 1PPD x 40 Years Second hand smoke exposure: No Alcohol intake: current Alcohol intake frequency: few times a week Alcohol type : beer Lives independently: Yes Household members: spouse Marital status: Current occupational status: disabled History of recent travel: No Current gender identity: Male Vitals/I&O/Wt Last Vital Signs Temp 97.8 F 10/04/21 17:38 Pulse 59 L 10/04/21 21:36 Resp 18 10/04/21 21:36 BP 118/43 10/04/21 21:36 Pulse Ox 94 10/04/21 21:36 Weight last 48 hrs Weight 113.398 kg Physical Exam Narrative: General: -Alert -No acute distress -No dyspnea -No tachypnea Head: -Atraumatic -Normocephalic Eyes: -Pupils equally round and reactive to light and accommodation -Extraocular muscles intact Neurological: -Cranial nerves II-XII intact Neck: -No jugular venous distention -No thyromegaly -No cervical lymphadenopathy Heart: -Regular rate -Regular rhythm -No murmurs -No gallops -No rubs Lungs: -No wheeze -No rhonchi -No rales ? Abdomen: -Normal bowel sounds in all four quadrants -No rebound -No guarding -No tenderness Extremities: -2/4 pulse in all four extremities -No clubbing -No cyanosis -No edema -No calf tenderness present bilaterally -Negative Christiano?s sign bilaterally Musculoskeletal: -5/5 bilateral upper extremity strength -5/5 bilateral lower extremity strength -Sensorium of bilateral upper extremities are equal and intact -Sensorium of bilateral lower extremities are equal and intact ? Additional Details / Additional Findings / Exceptions / Miscellaneous: Data : 10/04/21 19:45 10/04/21 19:45 A&P Assessment and plan (1) LUIS (acute kidney injury): Status: Acute Plan Acute renal insufficiency/acute renal failure. Will monitor creatinine and intermittent. Strict I/O. Creatine kinase level pending. IV normal saline 100 ML's per hour. No further studies are warranted at this time And millimeter right middle pulmonary lobe nodule. Patient requires CT chest with IV contrast for weeks post discharge for reassessment Anxiety Depression Neuropathy Muscle spasm Seasonal allergies COPD, not O2 dependent Documented history of CHF with preserved ejection fraction however patient has grade 2 diastolic dysfunction Coronary artery disease GERD Hyperlipidemia Hypertension Obesity. The patient becomes regarding lifestyle modification Smoker. The patient becomes regarding smoking cessation Obesity hypoventilation syndrome History of CVA Obstructive sleep apnea. CPAP/BiPAP: Okay to use home device and/or pressure when sleeping with supplemental oxygen which I believe is 2 L DVT Proflex is. Heparin 5000 units subcutaneous leak every 12 hours Attestations Medical Necessity Statement*: The patient's anticipate length of stay is greater than 2 midnights first treatment of acute renal failure Coding Level of Care Code Acute Local Delivery Driver for Misty Aguila Diagnoses LUIS (acute kidney injury) N17.9
[2021-10-04 22:53] LABS: Phosphorus 4.4 mg/dL (2.5-4.5)
[2021-10-04 23:13] VITALS: BP 116/59; PULSE 61; RESP 19; O2SAT 92
[2021-10-04 23:41] VITALS: BMI 39.1
[2021-10-05] VITALS (10 sets, daily range): BP systolic 124–146; BP diastolic 66–83; PULSE 56–78; RESP 14–18; TEMP 36.3–37.1; O2SAT 93–97
[2021-10-05] MEDS: heparin 5,000 unit/mL INJ 1 mL 5000 UNIT SUBCUT ×3 (00:20→21:49)
[2021-10-05] MEDS: sodium chloride 0.9% 1,000 ML 100 ML IV (00:20)
[2021-10-05 05:55] LABS: Blood Urea Nitrogen 52 mg/dL (8-23); Calcium 9.2 mg/dL (8.5-10.5); Carbon Dioxide 25 mmol/L (22-29); Chloride 108 mmol/L (98-107); Creatine Phosphokinase 86 U/L (39-308); Glomerular Filtration Rate 36.1 mL/min (90-130); Glucose 105 mg/dL (65-115); Osmolality Calculated 308 mOsm/kg (285-295); Sodium 142 mmol/L (136-145)
[2021-10-05 05:57] LABS: Anion Gap 13.6 (5-19); Potassium 4.6 mmol/L (3.5-5.1)
[2021-10-05] MEDS: ipratropium-albuterol 3 mL Neb INHALATION ×2 (09:59→20:08)
[2021-10-05] MEDS: sertraline 50 mg Tablet PO (10:20)
[2021-10-05] MEDS: sodium chloride 0.9% 1,000 ML 75 ML IV ×2 (10:20→21:51)
--- NOTE | 2021-10-05 14:58 | P.PN_ITS ---
Subjective Subjective: Patient was seen and examined this morning, BUN/SCR is improving, was complaining of neck pain last night as well as weakness. Medications: Medication Review Details: Generic Name Dose Route Start Last Admin Trade Name Rayna PRN Reason Stop Dose Admin Albuterol/Ipratrop ium 3 ml 10/05/21 10:00 10/05/21 09:59 Ipratropium-Albu terol 3 Ml Neb INHALATION 3 ml Q6H.RESPIRATORY S CH Administration Heparin Sodium (Po rcine) 5,000 unit 10/04/21 23:38 10/05/21 13:02 Heparin 5,000 Un it/Ml Inj 1 Ml SUBCUT 5,000 unit Q12H SABINO Administration Sodium Chloride 1,000 mls @ 75 ml s/hr 10/05/21 09:30 10/05/21 10:20 Sodium Chloride 0.9% IV 75 mls/hr .[id number] SABINO Administration Sertraline HCl 50 mg 10/05/21 10:00 10/05/21 10:20 Sertraline 50 Mg Tablet PO 50 mg DAILY SABINO Administration Vitals/I&O/Wt Last Vital Signs Temp 98.7 F 10/05/21 11:29 Pulse 68 10/05/21 11:29 Resp 18 10/05/21 11:29 BP 125/74 10/05/21 11:29 Pulse Ox 95 10/05/21 11:29 10/04/21 10/05/21 10/05/21 22:59 06:59 14:59 Intake Total 1050 / 1050 1460 / 1460 Output Total 750 / 750 825 / 825 Balance 300 / 300 635 / 635 Weight last 48 hrs Weight 113.398 kg Weight 113.398 kg Physical Exam Const: COMMON NORMALS: patient oriented x3 HENMT: COMMON NORMALS: normocephalic, atraumatic, hearing grossly normal bilaterally and external ears normal HEAD & SCALP: normocephalic and atraumatic EXTERNAL EAR: Yes external ears normal Eye: COMMON NORMALS: no scleral icterus GENERAL EYE: appearance normal, both eyes and all related structures Chest: COMMONS NORMALS: normal inspection of the chest and normal palpation of entire chest wall CHEST: Yes Symmetrical chest wall rise Resp: COMMON NORMALS: normal respiratory effort, No retractions, No use of accessory muscles and clear to auscultation bilaterally EFFORT & INSPECTION: Yes symmetric chest movement AUSCULTATION: clear to auscultation bilaterally OTHER: Diminished air entry b/l Cardio: COMMON NORMALS: regular rate, regular rhythm, S1 normal heart sound present, S2 normal heart sound present, No gallops present (Cardio), No murmurs present (Cardio), No rub (Cardio) and Peripheral pulses 2+ throughout RATE: regular rate RHYTHM: regular rhythm HEART SOUNDS: S1 normal heart sound present and S2 normal heart sound present PERIPHERAL PULSES: Peripheral pulses 2+ throughout GI: COMMON NORMALS: Normal to inspection, nondistended, normoactive bowel sounds present, Soft to palpation, non-tender, No hepatosplenomegaly present and no masses AUSCULTATION: Yes normoactive bowel sounds PALPATION: Yes Soft to palpation and Yes No hepatosplenomegaly present RECTAL EXAM: Yes deferred Extremity: COMMON NORMALS: no clubbing, cyanosis or edema and no pedal edema Neuro: COMMON NORMALS: patient oriented x3 Data : 10/04/21 19:45 10/05/21 05:15 A&P Assessment and plan (1) LUIS (acute kidney injury): Status: Acute (2) Hypertension: Status: Acute Qualifiers: Hypertension type: essential hypertension Qualified Code(s): I10 - Essential (primary) hypertension (3) Chronic diastolic CHF (congestive heart failure): Status: Acute (4) Obesity hypoventilation syndrome: Status: Acute (5) Depression with anxiety: Status: Acute Plan 61-year-old male with PMH of HTN, HFpEF, OHS, was admitted with c/o one-week history of generalized weakness, muscle spasm neck pain. Assessment : LUIS ON CKD Satge III likely prerenal Admission SCR : 2.7 Baseline SCR : 1-1.1 Monitor BMP Continue to hold lasix Monitor I/O Charting Random Urine Na Random Urine CR Avoid Nephrotoxics Continue Gentle I.V Hydration #HTN : Blood Pressure is currently well controlled Continue to Hold chlothalidone, benzaril #HFpEF:Currently compensated Monitror I/O Charting Daily Weight k>4,mg>2 #OHS/PATRICIO : Use CPAP at night #History of CVA #DVT PPX: On Heparin Attestations Medical Necessity Statement*: Patient needs to be in hospital for management of LUIS. Time Spent in Patient Care: Greater than 35 minutes (>than 50% of time spent in counselling and/or direct pt care on unit) . Coding Level of Care Code Acute Tableau Administrator for Chg Fwd Diagnoses LUIS (acute kidney injury) N17.9 Hypertension I10 Hypertension type: essential hypertension Chronic diastolic CHF (congestive heart failure) I50.32 Obesity hypoventilation syndrome E66.2 Depression with anxiety F41.8
[2021-10-05] MEDS: atorvastatin 40 mg Tablet PO (21:51)
[2021-10-06] VITALS: BP 179/83; PULSE 60; RESP 16; TEMP 36.6; O2SAT 95
[2021-10-06] MEDS: ipratropium-albuterol 3 mL Neb INHALATION ×2 (02:59→08:03)
[2021-10-06 03:00] VITALS: PULSE 62; RESP 16; O2SAT 95
[2021-10-06 04:00] VITALS: BP 188/82; PULSE 60; RESP 15; TEMP 36.8; O2SAT 96
[2021-10-06 07:33] VITALS: BP 179/90; PULSE 71; RESP 14; TEMP 36.5; O2SAT 95
[2021-10-06 07:34] VITALS: PULSE 69; RESP 16; O2SAT 96
[2021-10-06 08:55] LABS: Anion Gap 14.4 (5-19); Blood Urea Nitrogen 27 mg/dL (8-23); Calcium 9.3 mg/dL (8.5-10.5); Carbon Dioxide 25 mmol/L (22-29); Chloride 106 mmol/L (98-107); Creatinine Clr Calc Pharmacy 76.7534; Glomerular Filtration Rate 61.3 mL/min (90-130); Glucose 124 mg/dL (65-115); Osmolality Calculated 299 mOsm/kg (285-295); Potassium 4.4 mmol/L (3.5-5.1); Sodium 141 mmol/L (136-145)
[2021-10-06] MEDS: amlodipine 10 mg Tablet PO (09:22)
[2021-10-06] MEDS: pantoprazole DR 40 mg Tablet PO (09:22)
[2021-10-06] MEDS: sertraline 50 mg Tablet PO (09:22)
--- NOTE | 2021-10-06 10:36 | PC.CHAP ---
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 [] Patient/Family/Request visit [] Outpatient visit [] Follow-up visit [] Physician referral [] Code/Alert [x] Routine visit [] Staff referral [] Actively dying [] Patient sleeping [] Family support [] [] Out of room [] Palliative care [] [] Receiving care in room [] Pre-surgical visit [] Trauma [] Long length of stay [] ICU visit [] Other: Relational/Emotional Strength [x] Patient feels connected with others/family/visitors/staff [] Distress [] Loneliness/isolation [] Abandonment Spirituality of Patient [x] Person of Riya [] Attends Mandaen of their Riya [x] Believes in Prayer [] Reads Bible or Denominational materials [] There are Spiritual issues to be addressed Service Dispatcher Interventions [x] Prayer [x] Active listening [x] Non-anxious presence [] Spiritual/emotional support [] Crisis/trauma care [] Spiritual counseling [] Bereavement support [] Provided bereavement packet [] Provided Bible/devotional materials [] Provided toy/stuffed animal, coloring book to patient or family member [] Provided Communion [] Anointing/Gaastra [] Salvation [x] Completed spiritual assessment [] Other: Impact on Illness or Injury [] Angry [] Fearful [] Anxious [] Often cries [] Exhaustion [] Unable to work [] Unable to attend rastafari [] Unable to walk/stand [] Unable to read [] Unable to drive [] Unable to eat/drink [] Unable to sleep [] Unable to be with family [] Patient intubated [] Other: Summary Time spent with patient 10 min
--- NOTE | 2021-10-06 10:37 | PM.DCS ---
Discharge Providers Date of Admission: 10/04/21 22:01 Date of Discharge: October 06, 2021 Attending Provider at Admission: Ruddy Churchill DO Attending Provider at Discharge: Linda Urrutia MD Primary Care Provider: Gomez Chris NP Diagnoses at Discharge Discharge Diagnosis (1) LUIS (acute kidney injury): Status: Acute (2) Hypertension: Status: Acute Qualifiers: Hypertension type: essential hypertension Qualified Code(s): I10 - Essential (primary) hypertension (3) Chronic diastolic CHF (congestive heart failure): Status: Acute (4) Obesity hypoventilation syndrome: Status: Acute (5) Depression with anxiety: Status: Acute Reason for Visit Reason for Visit: Body jerks, weakness in legs Hospital Course Hospital Course 61-year-old male with PMH of HTN, HFpEF, OHS, was admitted with c/o one-week history of generalized weakness, muscle spasm neck pain, who was admitted for management of dehydration related acute on chronic kidney disease. His lisinopril chlorthalidone were held. He was hydrated with IV fluids. His creatinine improved. He did make more than 1 L of urine in 13 to 16 hours. No electrolyte imbalance. I have resumed his medication and requested him to follow-up with his PCP, gave him a prescription for another BMP. I also given him a prescription for CT scan of chest for pulmonary nodule no signs of hydronephrosis were seen on CT abdomen pelvis. Physical Exam Narrative: ? Const:?? COMMON NORMALS: pa tient oriented x3 HENMT:?? COMMON NORMALS: no rmocephalic, atrau matic, hearing ginger ssly normal bilate rally and external ears normal? HEAD & SCALP: normocep halic and atraumat ic? EXTERNAL EAR: Yes external ears normal Eye:?? COMMON NORMALS: no scleral icterus? GENERAL EYE: appea rashida normal, both eyes and all rela mahendra structures Chest:?? COMMONS NORMALS: n ormal inspection o f the chest and no rmal palpation of entire chest wall? CHEST: Yes Symmet rical chest wall r ise Resp:?? COMMON NORMALS: no rmal respiratory e ffort, No retracti ons, No use of acc essory muscles and clear to ausculta tion bilaterally? EFFORT & INSPECTIO N: Yes symmetric c hest movement? AUS CULTATION: clear t o auscultation eduardo aterally? OTHER: D iminished air entr y b/l Cardio:?? COMMON NORMALS: re gular rate, regula r rhythm, S1 mary l heart sound pres ent, S2 normal hea rt sound present, No gallops present (Cardio), No murm urs present (Cardi o), No rub (Cardio ) and Peripheral p ulses 2+ throughou t? RATE: regular r ate? RHYTHM: regul ar rhythm? HEART S OUNDS: S1 normal h eart sound present and S2 normal hea rt sound present? PERIPHERAL PULSES: Peripheral pulses 2+ throughout GI:?? COMMON NORMALS: No rmal to inspection , nondistended, no rmoactive bowel so unds present, Soft to palpation, non -tender, No hepato splenomegaly prese nt and no masses? AUSCULTATION: Yes normoactive bowel sounds? PALPATION: Yes Soft to palpa tion and Yes No he patosplenomegaly p resent? RECTAL EXA M: Yes deferred Extremity:?? COMMON NORMALS: no clubbing, cyanosi s or edema and no pedal edema Discharge Data Studies Completed and Pending Completed Studies During Hospitalization Category Date Time Status CT abdomen renal stone [CT kidney stone [id number]] Urgent Cat Scan 10/04/21 20:[address] head wo con* [id number] Urgent Cat Scan 10/04/21 20:25 Completed XR chest 1V portable [id number] Urgent Exams 10/04/21 19:52 Completed Radiology Impressions Chest X-Ray 10/04/21 19:52 IMPRESSION: No acute findings. Abdomen/Pelvis CT 10/04/21 20:25 IMPRESSION: 1. Normal appearance of the kidneys. No sign of obstruction. 2. 10 mm right middle lobe pulmonary nodule. The nodule was not visible on 09/19/2021. Possible focal consolidation. Recommend follow-up chest CT in 3-6 weeks to evaluate for resolution of the abnormality. 3. 5 mm right lower lobe pulmonary nodule, stable since 10/30/2020. No further imaging follow-up of this nodule is necessary based on Fleischner society criteria. (Reference: Jovita) 4. Incidental findings above. REFERENCES: Jovita Sarmiento et al. Guidelines for Management of Incidental Pulmonary Nodules Detected on CT Images: From the Fleischner Society 2017. Radiology. 2017;284(1):228-243. Head CT 10/04/21 20:25 IMPRESSION: No acute intracranial abnormality. Laboratory Results WBC 7.5 10^3/uL (4.0-10.0) 10/04/21 19:45 RBC 4.54 10^6/uL (4.1-5.3) 10/04/21 19:45 Hgb 12.3 g/dL (11.7-16.6) 10/04/21 19:45 Hct 40.8 % (42.0-52.0) L 10/04/21 19:45 MCV 89.9 fl (80-94) 10/04/21 19:45 MCH 27.1 pg (28.0-34.0) L 10/04/21 19:45 MCHC 30.1 g/dL (30.0-36.0) 10/04/21 19:45 RDW 14.4 % (12.1-15.1) 10/04/21 19:45 Plt Count 263 10^3/cmm (130-400) 10/04/21 19:45 MPV 10.0 fL (7.4-10.4) 10/04/21 19:45 Neut % (Auto) 64.8 % 10/04/21 19:45 Lymph % (Auto) 21.1 % 10/04/21 19:45 Fallon % (Auto) 10.3 % 10/04/21 19:45 Eos % (Auto) 2.7 % 10/04/21 19:45 Baso % (Auto) 0.3 % 10/04/21 19:45 Neut # (Auto) 4.83 10^3/uL (1.8-7.7) 10/04/21 19:45 Lymph # (Auto) 1.6 10^3/uL (0.8-4.8) 10/04/21 19:45 Fallon # (Auto) 0.8 10^3/uL (0.2-0.9) 10/04/21 19:45 Eos # (Auto) 0.2 10^3/uL (0.0-0.8) 10/04/21 19:45 Baso # (Auto) 0.0 10^3/uL (0.0-0.1) 10/04/21 19:45 Nucleated RBC % (auto) 0 % 10/04/21 19:45 Nucleated RBCs # 0.0 /100WBC 10/04/21 19:45 Specimen Type Arterial 10/04/21 20:45 Sample Site Radial, right 10/04/21 20:45 ABG pH 7.32 (7.35-7.45) L 10/04/21 20:45 ABG pCO2 47.4 mmHg (35-45) H 10/04/21 20:45 ABG pO2 66.0 mmHg (80.0-100.0) L 10/04/21 20:45 ABG HCO3 24.6 mmol/L (22-26) 10/04/21 20:45 ABG Base Excess -1.7 mmol/L (-2.0-2.0) 10/04/21 20:45 Kai Test Pos 10/04/21 20:45 Hematocrit 36.7 % (42-52) L 10/04/21 20:45 O2 Delivery Device None 10/04/21 20:45 O2 Liters/Min 2.0 % 10/04/21 20:45 Guide Tour ID Hensa 10/04/21 20:45 Sodium 141 mmol/L (136-145) 10/06/21 08:11 Potassium 4.4 mmol/L (3.5-5.1) 10/06/21 08:11 Chloride 106 mmol/L (98-107) 10/06/21 08:11 Carbon Dioxide 25 mmol/L (22-29) 10/06/21 08:11 Anion Gap 14.4 (5-19) 10/06/21 08:11 BUN 27 mg/dL (8-23) H 10/06/21 08:11 Creatinine 1.2 mg/dL (0.7-1.2) 10/06/21 08:11 GFR Calculation 61.3 mL/min (90-130) L 10/06/21 08:11 Glucose 124 mg/dL (65-115) H 10/06/21 08:11 POC Glucose 101 mg/dL (70-110) 10/04/21 20:43 Calculated Osmolality 299 mOsm/kg (285-295) H 10/06/21 08:11 Calcium 9.3 mg/dL (8.5-10.5) 10/06/21 08:11 Phosphorus 4.4 mg/dL (2.5-4.5) 10/04/21 19:45 Magnesium 2.5 mg/dL (1.7-2.3) H 10/04/21 19:45 Total Bilirubin 0.2 mg/dL (0.15-1.2) 10/04/21 19:45 AST 13 U/L (0-40) 10/04/21 19:45 ALT 14 U/L (0-41) 10/04/21 19:45 Alkaline Phosphatase 44 IU/L (40-130) 10/04/21 19:45 Ammonia 39 umol/L (16-60) 10/04/21 19:45 Creatine Kinase 86 U/L (39-308) 10/05/21 05:15 CK-MM (CK-3) Cancelled 10/05/21 05:15 CK-MB (CK-2) Cancelled 10/05/21 05:15 CK-BB (CK-1) Cancelled 10/05/21 05:15 Creatine Kinase Interp Cancelled 10/05/21 05:15 NT-Pro-B Natriuret Pep 378 pg/mL (0-125) H 10/04/21 19:45 Total Protein 7.0 g/dL (6.6-8.7) 10/04/21 19:45 Albumin 4.0 g/dL (3.5-5.2) 10/04/21 19:45 Globulin 3.0 g/dL (1.3-4.6) 10/04/21 19:45 TSH 1.35 uIU/mL (0.27-4.20) 10/04/21 19:45 Urine Color Yellow (Yellow) 10/04/21 20:40 Urine Appearance Clear (CLEAR) 10/04/21 20:40 Urine pH 5 (5-7) 10/04/21 20:40 Ur Specific [place] 1.020 (1.005-1.030) 10/04/21 20:40 Urine Protein Neg (Negative) 10/04/21 20:40 Urine Glucose (UA) Norm (Normal) 10/04/21 20:40 Urine Ketones Negative (Negative) 10/04/21 20:40 Urine Blood Neg (Negative) 10/04/21 20:40 Urine Nitrate Negative (Negative) 10/04/21 20:40 Urine Bilirubin Neg (Negative) 10/04/21 20:40 Urine Urobilinogen Norm mg/dL (Negative) 10/04/21 20:40 Ur Leukocyte Esterase Negative (Negative) 10/04/21 20:40 Vitals Last Vital Signs Temp 97.7 F 10/06/21 07:33 Pulse 69 10/06/21 07:34 Resp 16 10/06/21 07:34 BP 179/90 10/06/21 07:33 Pulse Ox 96 10/06/21 07:34 Discharge Plan Discharge Patient Disposition: Home Condition: Stable Prescriptions: Continued albuterol sulfate 90 mcg/actuation HFA aerosol inhaler 1 puff inhalation Q4H PRN (Reason: Shortness Of Breath) 0RF furosemide 20 mg tablet 20 mg PO DAILY Qty: 30 5RF Vitamin B-12 50 mcg Tablet 50 mcg PO DAILY 0RF fenofibrate 54 mg tablet 54 mg PO DAILY 0RF amlodipine-benazepril 5-20 mg capsule 1 cap PO DAILY 0RF gabapentin 300 mg capsule 300 mg PO TID 0RF atorvastatin 80 mg tablet 80 mg PO BEDTIME 0RF baclofen 10 mg tablet 10 mg PO TID PRN (Reason: Pain) 0RF clopidogrel 75 mg tablet 75 mg PO DAILY 0RF sertraline 50 mg tablet 50 mg PO DAILY 0RF pantoprazole 40 mg tablet,delayed release (DR/EC) 40 mg PO DAILY 0RF acetaminophen [Tylenol Extra Strength] 500 mg Tablet 500 - 1,000 mg PO Q6H PRN (Reason: Pain) 0RF docusate sodium [Colace] 100 mg Capsule 100 mg PO DAILY PRN (Reason: Constipation) 0RF diclofenac sodium 50 mg tablet,delayed release (DR/EC) 50 mg PO TID PRN (Reason: Back Pain) 0RF Hold Instructions: Resume on 09/28/21. chlorthalidone 50 mg tablet 50 mg PO DAILY 0RF diphenhydramine HCl [Allergy Relief(diphenhydramin)] 25 mg Tablet 25 mg PO DAILY PRN (Reason: Allergy Symptoms) 0RF Centrum Silver Men 300-600-300 mcg Tablet 1 tab PO DAILY 0RF Stiolto Respimat 2.5-2.5 mcg/actuation mist 2 puff inhalation DAILY 0RF Discontinued prednisone 10 mg tablet 5 mg PO DAILY Qty: 20 0RF Rx Instructions: 3 tab daily for 3 days, then 2 tab for 3 days, then 1 tab for 3 days, then 1/2 tab for 3 days. Discharge Orders: Discharge Order (Routine); Ordered 10/06/21 Ordered By: Linda Urrutia Other Ambulatory Orders: Basic Metabolic Panel (Routine) Timeframe: 3 Days Facility: [facility] - Location: Lab - Main Lab Ordered By: Linad Urrutia CT chest wo con [id number] (Routine) Timeframe: 6 Months Facility: [facility] - Location: Radiology [facility] Ordered By: Linda Urrutia Referrals: Gomez Chris NP [Primary Care Provider] - 4-7 days (Please call [facility] and schedule an apponitment to see your primary healthcare provider within the next 7 days. ) Discharge Diet: Cardiac Patient Instructions: Heart Failure (DC), Acute Kidney Injury (DC), Heart Healthy Diet (DC), Opioid Safety Discharge Attestations Time Spent in Discharge Care*: less than 30 min Status at Discharge: Cognitive status at discharge: cognitively intact, Behavioral status at discharge: cooperative and dependent in ADL's, Quality Metrics Clinical Quality Measures [ No reported AMI, CVA or VTE this stay] Coding Level of Care Code Acute Chg FW DC note Diagnoses LUIS (acute kidney injury) N17.9 Hypertension I10 Hypertension type: essential hypertension Chronic diastolic CHF (congestive heart failure) I50.32 Obesity hypoventilation syndrome E66.2 Depression with anxiety F41.8
[2021-10-06 11:49] VITALS: BP 150/74; PULSE 72; RESP 13; TEMP 36.6; O2SAT 92
== END 2021-10-06 12:36 | disposition home or self-care (01) ==
LOC: ER 22:22 → MEDSURG 22:36
PROVIDERS: Admitting Provider Internal Medicine; Emergency Provider Emergency Medicine; PCP Nurse Practitioner Family; Visit Provider Internal Medicine
DX: N17.9 Acute kidney failure, unspecified (principal); I11.0 Hypertensive heart disease with heart failure; I50.32 Chronic diastolic (congestive) heart failure; E66.2 Morbid (severe) obesity with alveolar hypoventilation; F41.8 Other specified anxiety disorders; Z86.73 Personal history of transient ischemic attack (TIA), and cerebral infarction without residual deficits; Z79.52 Long term (current) use of systemic steroids; E78.5 Hyperlipidemia, unspecified; E66.01 Morbid (severe) obesity due to excess calories; Z68.39 Body mass index [BMI] 39.0-39.9, adult; G47.33 Obstructive sleep apnea (adult) (pediatric); J44.9 Chronic obstructive pulmonary disease, unspecified; Z99.81 Dependence on supplemental oxygen
CPT/HCPCS: 36415; 36416; 36600; 70450; 71045; 74176; 80048; 80053; 81003; 82140; 82550; 82803; 82962; 83735; 83880; 84100; 84443; 85025; 94640; 94660; 96360; 96361; 96372; 99285; G0378; J1644; J7030

== ENCOUNTER → 2021-10-09 08:57 | Outpatient (BNVA) | payer MEDICAID, SELFPAY | PROVIDERS: PCP Nurse Practitioner Family; Visit Provider Internal Medicine Critical Care Medicine | DX: J98.4 Other disorders of lung (principal); G47.33 Obstructive sleep apnea (adult) (pediatric); I50.32 Chronic diastolic (congestive) heart failure; Z87.891 Personal history of nicotine dependence; K21.9 Gastro-esophageal reflux disease without esophagitis; E78.5 Hyperlipidemia, unspecified | CPT/HCPCS: 99214 ==

== ENCOUNTER 2021-10-09 09:23 | Outpatient (CLI) | payer MEDICARE, MEDICAID, SELFPAY ==
[2021-10-09 09:59] LABS: Blood Urea Nitrogen 34 mg/dL (8-23); Calcium 8.6 mg/dL (8.5-10.5); Carbon Dioxide 25 mmol/L (22-29); Chloride 100 mmol/L (98-107); Glomerular Filtration Rate 25.1 mL/min (90-130); Glucose 103 mg/dL (65-115); Osmolality Calculated 290 mOsm/kg (285-295); Sodium 136 mmol/L (136-145)
[2021-10-09 10:05] LABS: Anion Gap 15.4 (5-19); Potassium 4.4 mmol/L (3.5-5.1)
== END 2021-10-09 09:24 | disposition home or self-care (01) ==
PROVIDERS: PCP Nurse Practitioner Family; Visit Provider Internal Medicine
DX: N17.9 Acute kidney failure, unspecified (principal)
CPT/HCPCS: 80048

== ENCOUNTER 2021-11-12 09:37 | Outpatient (CLI) | payer MEDICARE, MEDICAID, SELFPAY ==
--- NOTE | 2021-11-12 13:40 | PFTS_ITS ---
Date of Study:11/12/21 Date of Dictation: MECHANICS: Forced vital capacity (FVC) is normal. Forced expiratory volume in one second (FEV1) is normal. FEV1/FVC is normal. FLOW VOLUME LOOP: No peak expiratory flow in the expiratory flow volume loop LUNG VOLUMES: Total lung capacity (TLC) is normal. Residual volume (RV) is normal. DIFFUSING CAPACITY FOR CARBON MONOXIDE: Normal. INTERPRETATION: The pulmonary function tests are normal. MTDD
== END 2021-11-12 09:38 | disposition home or self-care (01) ==
LOC: RT 09:43
PROVIDERS: PCP Nurse Practitioner Family; Visit Provider Internal Medicine Critical Care Medicine
DX: J98.4 Other disorders of lung (principal)
CPT/HCPCS: 94060; 94726; 94729; J7611

== ENCOUNTER → 2022-02-11 08:06 | Outpatient (BNVA) | payer MEDICARE, MEDICAID, SELFPAY | PROVIDERS: PCP Nurse Practitioner Family; Visit Provider Internal Medicine Critical Care Medicine | DX: G47.33 Obstructive sleep apnea (adult) (pediatric) (principal); I50.32 Chronic diastolic (congestive) heart failure; Z87.891 Personal history of nicotine dependence; Z97.8 Presence of other specified devices | CPT/HCPCS: 99214 ==

== ENCOUNTER 2022-04-24 14:29 | Outpatient (CLI) | payer MEDICARE, MEDICAID, SELFPAY ==
--- NOTE | 2022-04-24 15:01 | CT_ITS ---
WS: [id number] CT CHEST WITHOUT INTRAVENOUS CONTRAST HISTORY: Follow-up 8mm RIGHT middle lobe pulmonary nodule. TECHNIQUE: Contiguous 5 mm axial imaging performed on the thorax. Coronal and sagittal reformats are submitted. All CT scans at [facility] use at least one of these dose optimization techniques: automated exposure control; mA and/or kV adjustment per patient size (includes targeted exams where dose is matched to clinical indication); or iterative reconstruction. CONTRAST: None DLP: 789.04 mGy.cm COMPARISON: 09/19/2021, 10/30/2020 and 10/04/2021 Lungs and central airway: Lungs are well-aerated. 8mm pulmonary nodule in the RIGHT middle lobe descr ibed on 10/04/2021 has resolved. Stable noncalcified 5 mm nodule in the RIGHT lower lobe since 11/20/19 21. There is a 2 mm nodule with pleural tagging at the LEFT lung base. No pneumonia. Pleura: Normal. No pleural effusion. Heart and pericardium: Mild cardiomegaly. Mild atherosclerosis coronary arteries. Mediastinum and chi: No mediastinum or hilar adenopathy. Vessels: Normal size aortic and pulmonary artery. No coronary artery calcifications. Chest wall and lower neck: No soft tissue masses. Upper abdomen: Unenhanced imaging of the upper abdomen demonstrates no abnormality. Vascular calcific ations in the splenic artery. No adrenal mass. Osseous structures: Moderate mid thoracic spine anterior bridging osteophytes. CT/CT chest wo con [id number] IMPRESSION: 1. Interval complete resolution 8mm nodule in the RIGHT middle lobe seen on . Likely inflammatory. 2. Stable noncalcified 5 mm pulmonary nodule RIGHT lower lobe, stable since . Recommend [address] follow-up to demonstrate long- term stability. 3. Mild cardiomegaly. 4. No adenopathy.
== END 2022-04-24 14:30 | disposition home or self-care (01) ==
LOC: RAD 14:31
PROVIDERS: PCP Nurse Practitioner Family; Visit Provider Internal Medicine
DX: R91.1 Solitary pulmonary nodule (principal); I51.7 Cardiomegaly
CPT/HCPCS: 71250

== ENCOUNTER → 2022-05-11 11:15 | Outpatient (BNVA) | payer MEDICARE, MEDICAID, SELFPAY | PROVIDERS: PCP Nurse Practitioner Family; Referring Provider Nurse Practitioner Family; Visit Provider Specialist | DX: G89.0 Central pain syndrome (principal); I69.398 Other sequelae of cerebral infarction; Z87.891 Personal history of nicotine dependence | CPT/HCPCS: 99204 ==

== ENCOUNTER → 2022-05-13 12:33 | Outpatient (BNVA) | payer MEDICARE, MEDICAID, SELFPAY | PROVIDERS: PCP Nurse Practitioner Family; Visit Provider Internal Medicine | DX: I11.0 Hypertensive heart disease with heart failure (principal); I50.32 Chronic diastolic (congestive) heart failure; I34.0 Nonrheumatic mitral (valve) insufficiency; E78.5 Hyperlipidemia, unspecified; Z87.891 Personal history of nicotine dependence | CPT/HCPCS: 99214 ==

== ENCOUNTER 2022-06-04 08:56 | Outpatient (CLI) | payer MEDICARE, MEDICAID, SELFPAY ==
--- NOTE | 2022-06-04 09:15 | USCV_ITS ---
Richard Inman Age: 62 Gender: M : 1960 Exam Date: 06/04/2022 09:18 Ordering Phys: Daniel Chavira M.D ([email or web address]) Technologist: JUSTINA Exam Location: [facility] Indication: MITRAL REGURG BP: 124 / 70 HR: 73 Rhythm: Sinus Technical Quality: Adequate MEASUREMENTS (Male / Female) Normal Values 2D ECHO LVOT Diameter 2.0 cm LV Ejection Fraction MOD 2C 68.7 % LV Ejection Fraction 2C AL 68.1 % LA Diameter 3.9 cm LA Width 4.2 cm LA Height 5.9 cm RA Width 4.0 cm RA Height 5.4 cm Aorta at Sinotubular Diameter 2.6 cm IVC Diameter 1.6 cm M-MODE Aortic Annulus Diameter 2.8 cm LA Ao Ratio MM 1.4 MV E Point Septal Separation 0.1 cm DOPPLER AV Peak Velocity 200.3 cm/s LVOT Peak Velocity 143.0 cm/s AV Area Cont Eq vti 2.3 cm squared AV Area Cont Eq pk 2.3 cm squared MV Peak Velocity 152.0 cm/s MV Area PHT 3.3 cm squared Mitral E to A Ratio 1.5 MV E' Velocity 75.5 cm/s Mitral E to MV E' Ratio 10.0 Mitral E to LV E' Lateral Ratio 9.1 Mitral E to LV E' Septal Ratio 11.1 TR Peak Velocity 186.9 cm/s TR Peak Gradient 14.0 mmHg TR Mean Velocity 146.3 cm/s TR Mean Gradient 9.3 mmHg TR Velocity Time Integral 45.7 cm TV Peak E Velocity 60.0 cm/s Right Atrial Pressure 3.0 mmHg Pulmonary Artery Systolic Pressu 17.0 mmHg PV Peak Velocity 179.0 cm/s RV Acceleration Time 0.1 s RV Ejection Time 0.3 s RV AcT/ET 0.2 FINDINGS Left Ventricle Left ventricle is normal in size. LV systolic function is normal with EF of 55 to 60%. No regional wall motion abnormalities are seen. Diastolic function is normal. Right Ventricle Normal in size and function Right Atrium Normal in size Left Atrium Dilated Mitral Valve Structurally normal mitral valve. Mild mitral regurgitation. Aortic Valve Aortic valve is thickened. Mild aortic stenosis with aortic valve area of 2.2 cm. Mean gradient across aortic valve of 9.1 mmHg. Tricuspid Valve Mild tricuspid regurgitation. Pulmonary artery systolic pressure is normal. Pulmonic Valve Not well visualized Pericardium Normal Aorta Normal size IVC Appears to be normal CONCLUSIONS LV systolic function normal with EF 55 to 60% Diastolic function is normal Left atrial dilation Mild mitral regurgitation Mild aortic stenosis Mild tricuspid regurgitation Compared to prior echocardiogram from 2019, patient now has mitral regurgitation and aortic stenosis Daniel Chavira MD (Electronically Signed) Final Date: 13 June 2022 11:21 S
== END 2022-06-04 08:57 | disposition home or self-care (01) ==
LOC: RAD 08:57
PROVIDERS: PCP Nurse Practitioner Family; Visit Provider Internal Medicine
DX: I34.0 Nonrheumatic mitral (valve) insufficiency (principal)
CPT/HCPCS: 93306

== ENCOUNTER → 2022-08-06 12:54 | Outpatient (BNVA) | payer MEDICARE, MEDICAID, SELFPAY | PROVIDERS: PCP Nurse Practitioner Family; Visit Provider Internal Medicine Pulmonary Disease | DX: G47.33 Obstructive sleep apnea (adult) (pediatric) (principal); Z87.891 Personal history of nicotine dependence; J20.9 Acute bronchitis, unspecified | CPT/HCPCS: 99214 ==

== ENCOUNTER → 2022-08-12 14:19 | Outpatient (BNVA) | payer MEDICARE, MEDICAID, SELFPAY | PROVIDERS: PCP Nurse Practitioner Family; Visit Provider Specialist | DX: G89.0 Central pain syndrome (principal); Z87.891 Personal history of nicotine dependence | CPT/HCPCS: 99213 ==

== ENCOUNTER → 2023-02-17 14:35 | Outpatient (BNVA) | payer MEDICARE, MEDICAID, SELFPAY | PROVIDERS: PCP Nurse Practitioner Family; Visit Provider Specialist | DX: R29.90 Unspecified symptoms and signs involving the nervous system (principal); G89.0 Central pain syndrome | CPT/HCPCS: 99214 ==

== ENCOUNTER → 2023-02-18 09:37 | Outpatient (BNVA) | payer MEDICARE, MEDICAID, SELFPAY | PROVIDERS: PCP Nurse Practitioner Family; Visit Provider Internal Medicine Pulmonary Disease | DX: R91.8 Other nonspecific abnormal finding of lung field (principal); G47.33 Obstructive sleep apnea (adult) (pediatric); Z87.891 Personal history of nicotine dependence; Z12.2 Encounter for screening for malignant neoplasm of respiratory organs; Z99.11 Dependence on respirator [ventilator] status | CPT/HCPCS: 99214 ==

== ENCOUNTER 2023-04-26 07:33 | Outpatient (CLI) | payer MEDICARE, MEDICAID, SELFPAY ==
--- NOTE | 2023-04-26 08:00 | CT_ITS ---
WS: [id number] CT chest wo con [id number] HISTORY: f/u nodule TECHNIQUE: Axial imaging performed through the thorax. Coronal and sagittal reformats are submitted. All CT scans at [facility] use at least one of these dose optimization techniques: automated exposure control; mA and/or kV adjustment per patient size (includes targeted exams where dose is mat ched to clinical indication); or iterative reconstruction. CONTRAST: None DLP: 713.59 mGy.cm COMPARISON: 04/24/2022, 10/30/2020 Lungs and central airway: Long-term stability of 5 mm noncalcified nodule in the RIGHT lower lobe. Ad ditional 3 mm noncalcified nodule periphery LEFT lower lobe. No new pulmonary mass or nodule. Pleura: Normal. No pleural effusion. Heart and pericardium: Moderate cardiomegaly. No pericardial effusion. Mediastinum and chi: No mediastinum or hilar adenopathy. Vessels: Mild atherosclerosis aorta. No aneurysm. Chest wall and lower neck: No soft tissue masses. Upper abdomen: Normal. Osseous structures: No destructive process. IMPRESSION: 1. Long-term stability 5 mm noncalcified pulmonary nodule RIGHT lower lobe. No additional imaging nec essary. 2. No suspicious pulmonary masses or nodule for which follow-up is recommended. 3. Mild atherosclerosis aorta.
== END 2023-04-26 07:34 | disposition home or self-care (01) ==
LOC: RAD 07:33
PROVIDERS: PCP Family Medicine; Visit Provider Internal Medicine Pulmonary Disease
DX: R91.1 Solitary pulmonary nodule (principal)
CPT/HCPCS: 71250

== ENCOUNTER → 2023-05-12 12:26 | Outpatient (BNVA) | payer MEDICARE, MEDICAID, SELFPAY | PROVIDERS: PCP Family Medicine; Visit Provider Internal Medicine | DX: I11.0 Hypertensive heart disease with heart failure (principal); I50.32 Chronic diastolic (congestive) heart failure; E78.5 Hyperlipidemia, unspecified; Z87.891 Personal history of nicotine dependence | CPT/HCPCS: 99214 ==

== ENCOUNTER 2023-07-31 17:24 | Inpatient (IN) | payer MEDICARE, SELFPAY ==
[2023-07-31] VITALS (17 sets, daily range): BP systolic 128–157; BP diastolic 62–90; PULSE 73–83; RESP 13–24; TEMP 36.6–37; O2SAT 93–100
--- NOTE | 2023-07-31 17:54 | XRR_ITS ---
PROCEDURE INFORMATION: Exam: XR Chest Exam date and time: 07/31/2023 6:03 PM Age: 63 years old Clinical indication: Shortness of breath; Patient HX: Low o2 sat; Respiratory distress; Smoker; Copd TECHNIQUE: Imaging protocol: Radiologic exam of the chest. Views: 1 view. COMPARISON: CT chest [facility] [id number] 04/26/2023 7:58 AM FINDINGS: Lungs: No focal consolidation. Mid to lower lung hazy opacities compatible with atelectasis, edema or developing infection in the proper clinical setting. Pleural spaces: No evidence of pneumothorax. No evidence of pleural effusion. Heart/Mediastinum: Cardiomediastinal silhouette is within normal limits. Bones/joints: No evidence of acute osseous abnormality. XR/XR chest 1V portable [id number] IMPRESSION: 1. Mid to lower lung hazy opacities compatible with atelectasis, edema or developing infection in the proper clinical setting. If there is ongoing clinical concern, consider correlation with CT.
--- NOTE | 2023-07-31 18:01 | ED_ITS ---
HPI - SOB/Dyspnea 2 General: Chief Complaint: Shortness of Breath/Dyspnea Stated Complaint: cough, sob, wheezing Time Seen by Provider: 07/31/23 17:50 Source: patient Mode of arrival: ambulatory Limitations: no limitations History of Present Illness: HPI Narrative: 63-year-old male he has a history of CVT TECH D along with CHF states he has had increasing shortness of breath and cough throughout the day. When patient arrived here he was 56% he states that he wears oxygen as needed at home he states he had increased wheezing as well denies any fever denies any chest pain. Associated symptoms: Deny abdominal pain, chest pain, fever(s), nausea or vomiting Review of Systems 2 Const: Denies: fever(s), chills, body aches or change in appetite ENMT: Denies: throat pain or dental pain Card: Denies: chest pain Resp: Reports: dyspnea, productive cough and wheezing GI: Denies: abdominal pain, nausea, vomiting or diarrhea : Denies: dysuria Musc: Denies: neck pain or back pain Skin/Breast: Denies: rash Neuro: Denies: headache(s) PFSH ED 2 PFSH: Medical History Acute hypercapnic respiratory failure Dyspnea Acute respiratory distress Obesity hypoventilation syndrome Chronic diastolic CHF (congestive heart failure) Chronic hypercapnic respiratory failure Morbid obesity -BMI-39 kg/m2 Acute hypercapnic respiratory failure Depression with anxiety GERD (gastroesophageal reflux disease) -on PPI CVA (cerebral vascular accident) -about 1 yr ago, on DAPT Obstructive sleep apnea Hyperlipidemia Hypertension Ulnar neuropathy of both upper extremities Surgical History No significant past surgical history Family History Mother Alzheimer's dementia Social History Smoking and tobacco/nicotine status: former use of tobacco/nicotine Quit status (tobacco/nicotine): has quit using Year quit tobacco: 2019 - 1PPD x 40 Years Second hand smoke exposure: No Alcohol intake: current Alcohol intake frequency: holidays/special occasions only Alcohol type: beer Substance/Drug Use: never Lives independently: Yes Household members: spouse Marital status: Current occupational status: disabled Do you think of yourself as: Straight/Heterosexual Current gender identity: Male Physical Exam 2 Const: COMMON NORMALS: patient oriented x3 GENERAL APPEARANCE: in distress and ill appearing HENMT: COMMON NORMALS: normocephalic and atraumatic HEAD & SCALP: n ormocephalic and atraumatic Neck/C-Spine: COMMON NORMALS: full ROM and supple Chest: COMMONS NORMALS: normal inspection of the chest Resp: COMMON NORMALS: No retractions EFFORT & INSPECTION: Yes respiratory distress AUSCULTATION: wheezes Cardio: COMMON NORMALS: regular rate, regular rhythm and No murmurs present (Cardio) RATE: regular rate RHYTHM: regular rhythm GI: COMMON NORMALS: Normal to inspection, nondistended, normoactive bowel sounds present, Soft to palpation, non-tender and no masses PALPATION: Yes Soft to palpation Extremity: COMMON NORMALS: normal to inspection and full ROM Neuro: COMMON NORMALS: patient oriented x3, moves all extremities and no focal motor deficits Psych: COMMON NORMALS: mental status grossly normal, Normal thought process present and cooperative THOUGHT PROCESS: Normal thought process present Skin: COMMON NORMALS: no rashes or lesions noted and no wounds GENERAL SKIN EXAM: no rashes or lesions noted Course 2 Vital Signs: Vital signs: Vital Signs Temperature 98.6 F 07/31/23 17:43 Pulse Rate 78 07/31/23 19:00 Respiratory Rate 14 07/31/23 18:30 Blood Pressure 128/62 07/31/23 19:00 Pulse Oximetry 95 07/31/23 19:00 Oxygen Delivery Me thod BiPAP 07/31/23 18:30 Oxygen Flow Rate 15 07/31/23 17:50 Fraction of Inspir ed Oxygen 45 07/31/23 18:12 MDM - SOB/Dyspnea Medical Decision Making Patient presents here with shortness of breath likely from pneumonia along with COPD and CHF exacerbation he is improved here on BiPAP did get blood cultures antibiotics spoke to the hospitalist will admit at this time. Medical Records I reviewed the patient's medical records. Lab Data I reviewed the patient's lab results. 07/31/23 18:07 07/31/23 18:29 Labs/Radiology: Radiology Impressions Chest X-Ray 07/31/23 17:54 IMPRESSION: 1. Mid to lower lung hazy opacities compatible with atelectasis, edema or developing infection in the proper clinical setting. If there is ongoing clinical concern, consider correlation with CT. Laboratory Results WBC 7.97 10^3/uL (3.29-11.43) 07/31/23 18:07 RBC 4.72 10^6/uL (3.85-5.65) 07/31/23 18:07 Hgb 12.30 g/dL (11.27-16.99) 07/31/23 18:07 Hct 41.6 % (37-53) 07/31/23 18:07 MCV 88.1 fl (82-101) 07/31/23 18:07 MCH 26.1 pg (27-33) L 07/31/23 18:07 MCHC 29.6 g/dL (30-55) L 07/31/23 18:07 RDW 15.4 % (12.1-15.1) H 07/31/23 18:07 Plt Count 231 10^3/cmm (157-399) 07/31/23 18:07 MPV 9.3 fL (7.4-10.4) 07/31/23 18:07 Neut % (Auto) 70.3 % 07/31/23 18:07 Lymph % (Auto) 16.4 % 07/31/23 18:07 Creek % (Auto) 12.3 % 07/31/23 18:07 Eos % (Auto) 0.1 % 07/31/23 18:07 Baso % (Auto) 0.5 % 07/31/23 18:07 Neut # (Auto) 5.60 10^3/uL (1.8-7.7) 07/31/23 18:07 Lymph # (Auto) 1.3 10^3/uL (0.8-4.8) 07/31/23 18:07 Creek # (Auto) 1.0 10^3/uL (0.2-0.9) H 07/31/23 18:07 Eos # (Auto) 0.0 10^3/uL (0.0-0.8) 07/31/23 18:07 Baso # (Auto) 0.0 10^3/uL (0.0-0.1) 07/31/23 18:07 Nucleated RBC % (auto) 0 % 07/31/23 18:07 Nucleated RBCs # 0.0 /100WBC 07/31/23 18:07 Specimen Type Arterial 07/31/23 17:53 Sample Site Radial, right 07/31/23 17:53 ABG pH 7.31 (7.35-7.45) L 07/31/23 17:53 ABG pCO2 63.1 mmHg (35-45) H* 07/31/23 17:53 ABG pO2 164.0 mmHg (80.0-100.0) H 07/31/23 17:53 ABG HCO3 31.6 mmol/L (22-26) H 07/31/23 17:53 ABG Base Excess 3.6 mmol/L (-2.0-2.0) H 07/31/23 17:53 Kai Test Pos 07/31/23 17:53 Hematocrit 38.5 % (42-52) L 07/31/23 17:53 Hgb O2 Saturation 95.6 % (95-100) 07/31/23 17:53 Carboxyhemoglobin 3.1 %THgb (0.4-20.1) 07/31/23 17:53 Methemoglobin 0.5 % (0.4-1.5) 07/31/23 17:53 Total Hemoglobin 12.5 g/dL (14-18) L 07/31/23 17:53 O2 Delivery Device Nrb 07/31/23 17:53 O2 Liters/Min 15.0 % 07/31/23 17:53 Navigating Officer ID [place] 07/31/23 17:53 Sodium 140 mmol/L (136-145) 07/31/23 18:29 Potassium 4.1 mmol/L (3.5-5.1) 07/31/23 18:29 Chloride 102 mmol/L (98-107) 07/31/23 18:29 Carbon Dioxide 31 mmol/L (22-29) H 07/31/23 18:29 Anion Gap 11.1 (5-19) 07/31/23 18:29 BUN 13 mg/dL (8-23) 07/31/23 18:29 Creatinine 0.9 mg/dL (0.7-1.2) 07/31/23 18:29 GFR Calculation 85.0 mL/min (90-130) L 07/31/23 18:29 Glucose 116 mg/dL (65-115) H 07/31/23 18:29 Calculated Osmolality 291 mOsm/kg (285-295) 07/31/23 18:29 Calcium 8.7 mg/dL (8.5-10.5) 07/31/23 18:29 Total Bilirubin 0.5 mg/dL (0.15-1.2) 07/31/23 18:29 AST 10 U/L (0-40) 07/31/23 18:29 ALT 11 U/L (0-41) 07/31/23 18:29 Alkaline Phosphatase 63 U/L (40-130) 07/31/23 18:29 NT-Pro-B Natriuret Pep 4147 pg/mL (0-125) H 07/31/23 18:29 Total Protein 6.4 g/dL (6.6-8.7) L 07/31/23 18:29 Albumin 3.7 g/dL (3.5-5.2) 07/31/23 18:29 Globulin 2.7 g/dL (1.3-4.6) 07/31/23 18:29 Influenza Type A Ag negative (Negative) 07/31/23 18:18 Influenza Type B Ag negative (Negative) 07/31/23 18:18 All radiology interpretation(s) finalized by discharge EKG Data EKG 1: I personally reviewed and interpreted this EKG as follows: EKG Interpretation Date: 07/31/23 EKG interpretation time: 19:35 Interpretation: nsr hr [address] or t wave abnormalities qrs 89 qtc 400 Critical Care Time 2 Critical Care Time: Critical Care Time: Yes Total Critical Care Time: 40 Attestation: The high probability of a clinically significant, sudden or life threatening deterioration of the patient's resp system(s) required my full and direct attention, intervention and personal management. The critical care time is as shown. This time is in addition to time spent performing any reported procedures but includes the following: [x] Data and vital sign review and interpretation [x] Patient assessment, examination and intervention [x] Documentation [x] Medication orders and management Discharge Plan Discharge Patient Disposition: Admitted As Inpatient Clinical Impression: Community acquired pneumonia, Acute exacerbation of chronic obstructive airways disease, Congestive heart failure, Acute respiratory failure with hypoxia Condition: Stable Coding Level of Care Code ED Relationship Banker for Chg Ayla
[2023-07-31 18:04] LABS: ABG PH Result 7.31 (7.35-7.45); Arterial Blood Gas Hematocrit 38.5 % (42-52); Base Excess ABG 3.6 mmol/L (-2.0-2.0); Blood Gas Allen Test Pos; Blood Gas Operator Identificat WALCI; Blood Gas Sample Site Radial, right; Blood Gas Sample Type Arterial; Carboxyhemoglobin 3.1 %THgb (0.4-20.1); HCO3 ABG 31.6 mmol/L (22-26); HGB O2 Sat 95.6 % (95-100); Methemoglobin 0.5 % (0.4-1.5); Oxygen Device NRB; Total Hemoglobin 12.5 g/dL (14-18)
[2023-07-31 18:05] LABS: ABG PCO2 63.1 mmHg (35-45)
[2023-07-31] MEDS: methylPREDNISolone sod succ 125 mg/2 mL INJ IV (18:14)
[2023-07-31 18:15] LABS: Basophils % 0.5 %; Eosinophils % 0.1 %; Hematocrit 41.6 % (37-53); Lymphocytes # 1.3 10^3/uL (0.8-4.8); Lymphocytes % 16.4 %; Mean Corpuscular HGB Conc 29.6 g/dL (30-55); Mean Corpuscular Hemoglobin 26.1 pg (27-33); Mean Corpuscular Volume 88.1 fl (82-101); Mean Platelet Volume 9.3 fL (7.4-10.4); Monocytes % 12.3 %; Neutrophils % 70.3 %; Nucleated Red Blood Cells % 0 %; Platelet Count 231 10^3/cmm (157-399); Red Blood Count 4.72 10^6/uL (3.85-5.65); Red Cell Distribution Width 15.4 % (12.1-15.1); White Blood Count 7.97 10^3/uL (3.29-11.43)
[2023-07-31] MEDS: albuterol 2.5 mg/3 mL Neb INHALATION (18:16)
[2023-07-31] MEDS: ipratropium-albuterol 3 mL Neb INHALATION (18:16)
[2023-07-31 18:57] LABS: Influenza A by IFA negative (Negative); Influenza B by IFA negative (Negative)
[2023-07-31 19:09] LABS: Alanine Aminotransferase 11 U/L (0-41); Albumin Level 3.7 g/dL (3.5-5.2); Alkaline Phosphatase 63 U/L (40-130); Anion Gap 11.1 (5-19); Aspartate Amino Transferase 10 U/L (0-40); Blood Urea Nitrogen 13 mg/dL (8-23); Calcium 8.7 mg/dL (8.5-10.5); Carbon Dioxide 31 mmol/L (22-29); Chloride 102 mmol/L (98-107); Creatinine Clr Calc Pharmacy 99.7139; Globulin 2.7 g/dL (1.3-4.6); Glucose 116 mg/dL (65-115); NT Pro B Type Natriuretic Pept 4147 pg/mL (0-125); Osmolality Calculated 291 mOsm/kg (285-295); Potassium 4.1 mmol/L (3.5-5.1); Sodium 140 mmol/L (136-145); Total Bilirubin 0.5 mg/dL (0.15-1.2); Total Protein 6.4 g/dL (6.6-8.7)
--- NOTE | 2023-07-31 19:35 | ECG_ITS ---
[facility] Test Date: 2023-07-31 Pat Name: Richard Inman Department: Room: Gender: Male Ms Access Database Developer: : 1960 Requested By: Agustin Julien Order Number: [id number] Kunal MD: Johnathan Siu M.D. Measurements Intervals [place] Rate: 78 P: 48 IA: 204 QRS: 65 QRSD: 89 T: 63 QT: 367 QTc: 418 Interpretive Statements SINUS RHYTHM Compared to ECG 09/19/2021 16:28:38 No significant changes Electronically Signed On 08-01-2023 10:24:04 CDT by Johnathan Siu M.D. [id number]
[2023-07-31] MEDS: cefTRIAXone 1,000 MG in sodium chloride 0.9% (plus) 50 ML 100 MG IV (19:42)
[2023-07-31] MEDS: azithromycin 500 MG in sodium chloride 0.9% 250 ML 250 MG IV (20:22)
[2023-07-31 21:34] LABS: Adenovirus Not Detected (NOT DETECT); Chlamydia Pneumoniae Not Detected (NOT DETECT); Coronavirus 229E,HKU1,NL63,OC4 Not Detected (NOT DETECT); Human Metapneumovirus Not Detected (NOT DETECT); Human Rhinovirus/Enterovirus Not Detected (NOT DETECT); Influenza A Not Detected (NOT DETECT); Influenza A H1 Not Detected (NOT DETECT); Influenza A H1-2009 Not Detected (NOT DETECT); Influenza A H3 Not Detected (NOT DETECT); Influenza B Not Detected (NOT DETECT); Mycoplasma Pneumoniae Not Detected (NOT DETECT); Parainfluenza Virus Type 1 Not Detected (NOT DETECT); Parainfluenza Virus Type 2 Not Detected (NOT DETECT); Parainfluenza Virus Type 3 Not Detected (NOT DETECT); Parainfluenza Virus Type 4 Not Detected (NOT DETECT); Respiratory Syncytial Virus A Not Detected (NOT DETECT); Respiratory Syncytial Virus B Not Detected (NOT DETECT); SARS-COV-2 Not Detected (NOT DETECT)
[2023-07-31 21:58] LABS: ABG PCO2 55.7 mmHg (35-45); ABG PH Result 7.36 (7.35-7.45); Alveolar-Arterial Oxygen Gradi 21.2 mmHg (5-10); Arterial Blood Gas Hematocrit 37.8 % (42-52); Base Excess ABG 4.6 mmol/L (-2.0-2.0); Blood Gas Allen Test Pos; Blood Gas Sample Site Brachial, right; Blood Gas Sample Type Arterial; Carboxyhemoglobin 2.9 %THgb (0.4-20.1); HCO3 ABG 31.4 mmol/L (22-26); HGB O2 Sat 86.7 % (95-100); Ionized Calcium Level - ABG 1.2 mmol/L (1.1-1.4); Methemoglobin 0.6 % (0.4-1.5); Oxygen Device NC; Oxygen Saturation ABG 89.8; PO2 ABG 55.4 mmHg (80.0-100.0); PO2 FiO2 Ratio Arterial Blood 0; Potassium Level - ABG 4.1 mmol/L (3.5-5.0); Total Hemoglobin 12.3 g/dL (14-18)
[2023-07-31] MEDS: pantoprazole 40 mg SDV IVP (21:58)
[2023-07-31] MEDS: enoxaparin 40 mg/0.4 mL Syringe SUBCUT (21:58)
[2023-07-31] MEDS: methylPREDNISolone sod succ 40 mg/mL INJ IVP (21:59)
[2023-07-31 22:02] LABS: D Dimer 0.68 ug/mLFEU (0-0.59)
[2023-07-31 22:21] LABS: Lactic Sepsis W/Reflex 1.2 mmol/L (0.5-2.2)
[2023-07-31 22:39] LABS: Procalcitonin 0.08 ng/mL (0-0.5); Thyroid Stimulating Hormone 1.09 uIU/mL (0.27-4.20)
--- NOTE | 2023-07-31 23:28 | P.HP_ITS ---
Providers/Chief Complaint 2 Admitting Physician: Alfonso Dietrich MD Primary Care Provider: Moody Huffman MD Chief Complaint: cough, sob, wheezing History of Present Illness Richard Inman is a 63 year old male with a past medical history of obstructive sleep apnea, obesity hypoventilation syndrome, aortic stenosis, diastolic CHF, hyperlipidemia and small airway disease. He is presenting to the hospital today due to worsening shortness of breath over the past 2 to 3 days. Typically patient wears intermittent oxygen at home. He was hypoxic on admission and needed to be placed on nonrebreather mask at 15 L/min. ABG showed evidence of hypoxic hypercapnic respiratory failure for which he was placed on BiPAP in the emergency room. He was noted to have diffuse wheezing bilaterally which is currently improving at the time of this assessment. He denies any chest pain. No fever or chills. Review of Systems 2 General: Reports: 10 or more systems reviewed and unremarkable except in HPI and below Const: Denies: fever(s), chills or body aches Eyes: Denies: change in vision, blurry vision or photophobia ENMT: Reports: hoarseness; Denies: throat pain, enlarged tonsils, odynophagia or nasal congestion Card: Denies: chest pain, palpitations, irregular heart rhythm, edema, swelling of feet/ankles, lightheadedness, pre-syncope, dyspnea on exertion or orthopnea Resp: Denies: dyspnea, productive cough, non-productive cough, wheezing, stridor, pain on inspiration, change in phlegm color, hemoptysis or chest congestion GI: Denies: abdominal pain, nausea, vomiting, hematemesis, coffee ground emesis, dysphagia, heartburn, diarrhea, constipation, GI cramping, change in stool character, hematochezia or melena : Denies: flank pain, dysuria, urinary frequency, urinary urgency, urinary hesitancy or hematuria Musc: Denies: neck pain, back pain, extremity pain, joint swelling, joint warmth or deformity Neuro: Denies: headache(s), numbness in extremities, weakness in extremities, sensory changes, difficulty walking, frequent falls, dizziness, vertigo, behavioral changes, Slurred speech present or seizure-like activity Psych: Denies: anxiety, depression, suicidal ideation or homicidal ideation Endo: Denies: polyuria, polydipsia, tired all the time, cold intolerance or hot flashes Jhon/Lymph: Denies: easy bruising or easy bleeding Medications/Allergies Home Medications Medication Instructions Recorded Confirmed Last Taken Type atorvastatin 80 mg tablet 80 mg PO BEDTIME 03/22/20 07/31/23 07/30/23 20:00 History baclofen 10 mg tablet 10 mg PO TID PRN Pain 03/22/20 07/31/23 07/31/23 History clopidogrel 75 mg tablet 75 mg PO DAILY 03/22/20 07/31/23 07/31/23 History acetaminophen 500 mg tablet 500 - 1,000 mg PO Q6H PRN Pain 03/23/20 07/31/23 Unknown History (Tylenol Extra Strength) diclofenac sodium 50 mg 50 mg PO TID PRN Back Pain 03/23/20 07/31/23 07/31/23 History tablet,delayed release docusate sodium 100 mg capsule 100 mg PO DAILY PRN Constipation 03/23/20 07/31/23 Unknown History (Colace) cyanocobalamin (vitamin B-12) 50 50 mcg PO DAILY 04/27/21 07/31/23 07/31/23 History mcg tablet (Vitamin B-12) fenofibrate 54 mg tablet 54 mg PO DAILY 04/27/21 07/31/23 07/31/23 History albuterol sulfate 90 mcg/actuation 1 puff inhalation Q4H PRN 06/13/21 07/31/23 07/31/23 History aerosol inhaler Shortness Of Breath diphenhydramine HCl 25 mg tablet 25 mg PO DAILY PRN Allergy Symptoms 09/19/21 07/31/23 Unknown History (Allergy Relief (diphenhydramine)) [id number]-wu-okfff 300 mcg-K 60 1 tab PO DAILY 09/19/21 07/31/23 07/31/23 History mcg-lycop 600 mcg-lutein 300 mcg tablet (Centrum Silver Men) amlodipine 10 mg tablet 10 mg PO DAILY #30 tabs 10/09/21 07/31/23 07/31/23 Rx metoprolol tartrate 25 mg tablet 25 mg PO BID 05/13/22 07/31/23 07/31/23 History furosemide 20 mg tablet 20 mg PO DAILY #30 tabs 02/09/23 07/31/23 07/31/23 Rx duloxetine 30 mg capsule,delayed 30 mg PO DAILY #90 caps 07/12/23 07/31/23 07/31/23 Rx release (Cymbalta) tiotropium 2.5 mcg-olodaterol 2.5 2 puff inhalation DAILY #4 grams 07/14/23 07/31/23 07/31/23 Rx mcg/actuation mist for inhalation (Stiolto Respimat) gabapentin 300 mg capsule 600 mg PO 1300 07/31/23 07/31/23 07/31/23 13:00 History gabapentin 300 mg capsule 900 mg PO 08,07/31/23 07/31/23 07/31/23 08:00 History Allergies Allergy/AdvReac Type Severity Reaction Status Date / Time No Known Allergies Allergy Verified 07/31/23 17:59 PFSH Acute 2 PFSH: Medical History (Updated 08/01/23 @ 06:45 by Tracy Jimenez MD) Acute hypercapnic respiratory failure Dyspnea Acute respiratory distress Obesity hypoventilation syndrome Chronic diastolic CHF (congestive heart failure) Chronic hypercapnic respiratory failure Morbid obesity -BMI-39 kg/m2 Acute hypercapnic respiratory failure Depression with anxiety GERD (gastroesophageal reflux disease) -on PPI CVA (cerebral vascular accident) -about 1 yr ago, on DAPT Obstructive sleep apnea Hyperlipidemia Hypertension Ulnar neuropathy of both upper extremities Surgical History No significant past surgical history Family History Mother Alzheimer's dementia Social History Smoking and tobacco/nicotine status: former use of tobacco/nicotine Quit status (tobacco/nicotine): has quit using Year quit tobacco: 2019 - 1PPD x 40 Years Second hand smoke exposure: No Alcohol intake: current Alcohol intake frequency: holidays/special occasions only Alcohol type: beer Substance/Drug Use: never Lives independently: Yes Household members: spouse Marital status: Current occupational status: disabled Do you think of yourself as: Straight/Heterosexual Current gender identity: Male Vitals/I&O/Wt Last Vital Signs Temp 97.8 F 07/31/23 21:30 Pulse 73 07/31/23 22:18 Resp 18 07/31/23 22:18 BP 135/76 03/09/24 21:30 Pulse Ox 95 07/31/23 22:18 O2 Del Method BiPAP 07/31/23 22:18 O2 Flow Rate 5 07/31/23 21:30 FiO2 45 07/31/23 22:18 07/31/23 07/31/23 08/01/23 14:59 22:59 07:59 Intake Total 420 / 420 Balance 420 / 420 Weight last 48 hrs Weight 119.794 kg Weight 113.398 kg Physical Exam 2 Narrative: General: No acute distress, AO x3, on Bipap HEENT: PERRLA, pupils bilaterally equal and reactive, pallors not present Chest: Normal vesicular breath sounds, no added sounds, equal good air entry bilaterally CVS: S1-S2 regular, no murmurs, no tachycardia, no gallops, no rubs Abdomen: Soft, nontender, no organomegaly, bowel sounds present Neuro: No focal deficits, no facial deformity, AO x3, power 5/5 in all limbs Data 08/01/23 05:56 08/01/23 05:56 Micro: Microbiology 07/31/23 18:59 Blood Culture - Preliminary Blood SPECIMEN COLLECTED 07/31/23 18:07 Blood Culture - Preliminary Blood SPECIMEN COLLECTED ABG Interpretation 1: 07/31/23 07/31/23 17:53 21:50 ABG pH 7.31 L 7.36 ABG pCO2 63.1 H* 55.7 H ABG pO2 164.0 H 55.4 L ABG HCO3 31.6 H 31.4 H ABG O2 Saturation 89.8 ABG Base Excess 3.6 H 4.6 H Other data: XR/XR chest 1V portable 70154 IMPRESSION: 1. Mid to lower lung hazy opacities compatible with atelectasis, edema or developing infection in the proper clinical setting. If there is ongoing clinical concern, consider correlation with CT. Spec : [id number] Marie: 07/31/23-1545 Status: COMP Req : [id number] Recd: 07/31/[address]: Agustin Julien MD Ordered: Coronavirus PCR Test Low Normal High Flag Reference Site Coronavirus Not Detected NOT DETECT SARS-COV-2 Not Detected NOT DETECT Spec : [id number] Marie: 07/31/23 Status: COMP Req : [id number] Recd: 07/31/[address]: Agustin Julien MD Ordered: Flu A&B Test Low Normal High Flag Reference Site FLU A negative Negative FLU B negative Negative A&P Assessment and plan (1) Acute exacerbation of chronic obstructive airways disease: (2) Chronic diastolic CHF (congestive heart failure): (3) Hypercapnic respiratory failure: Plan Patient with past medical history of COPD, diastolic CHF currently presenting with worsening dyspnea over the last 3 to 4 days Overall clinical impression appears to be consistent with COPD exacerbation with acute on chronic hypercapneic hypoxic respiratory failure Currently on Bipap started in the ER, serial ABG showing improvement in hypercapnea , plan to continue bipap through night time today Chest x-ray without any gross consolidation, shows scattered infiltrates which may be merchandising representative of pulmonary edema. Lasix 20 mg IV x 1 and assess for response. Methylprednisolone 40 mg IV every 6 hours DuoNeb every 6 hours inhalation, budesonide 0.5 mg twice daily inhalation. D-dimer to screen for PE, if elevated follow-up with CTA EKG without acute ST-T wave changes, denies any chest pain, low suspicion for ACS. Attestations 2 Medical Necessity Statement*: anticipate > 2 midnight stay for above management Coding Level of Care Code Acute Code for Chg Fwd High MDM includes number and complexity of problems actively addressed during encounter, amount and/or complexity of data reviewed/ordered and described risk of complication, morbidity or mortality of management as documented Diagnoses Acute exacerbation of chronic obstructive airways disease J44.1 Chronic diastolic CHF (congestive heart failure) I50.32 Hypercapnic respiratory failure J96.92
[2023-07-31 23:57] LABS: Iron 14 ug/dL (59-158); Percent Saturation 4.6 % (20-50); Total Iron Binding Capacity 302 mcg/dl; Unsaturated Iron Binding 288 ug/dL (112-347)
[2023-08-01] VITALS (20 sets, daily range): BP systolic 115–142; BP diastolic 62–72; PULSE 64–82; RESP 12–22; TEMP 36.6–36.8; O2SAT 95–98; BMI 41.5
[2023-08-01 00:13] LABS: Vitamin B12 378 pg/mL (232-1245)
[2023-08-01] MEDS: ipratropium-albuterol 3 mL Neb INHALATION ×4 (03:57→21:48)
[2023-08-01] MEDS: methylPREDNISolone sod succ 40 mg/mL INJ IVP ×3 (03:58→17:46)
[2023-08-01 06:06] LABS: Basophils % 0.2 %; Hematocrit 41.1 % (37-53); Lymphocytes # 0.6 10^3/uL (0.8-4.8); Lymphocytes % 9.4 %; Mean Corpuscular HGB Conc 29.2 g/dL (30-55); Mean Corpuscular Hemoglobin 25.5 pg (27-33); Mean Corpuscular Volume 87.4 fl (82-101); Mean Platelet Volume 9.3 fL (7.4-10.4); Monocytes # 0.1 10^3/uL (0.2-0.9); Monocytes % 1.5 %; Neutrophils # 5.27 10^3/uL (1.8-7.7); Neutrophils % 88.6 %; Nucleated Red Blood Cells % 0 %; Platelet Count 208 10^3/cmm (157-399); Red Cell Distribution Width 14.6 % (12.1-15.1); White Blood Count 5.95 10^3/uL (3.29-11.43)
[2023-08-01 06:20] LABS: Estmated Average Glucose 126
[2023-08-01 06:36] LABS: Alanine Aminotransferase 6 U/L (0-41); Albumin Level 3.5 g/dL (3.5-5.2); Alkaline Phosphatase 63 U/L (40-130); Anion Gap 11.6 (5-19); Aspartate Amino Transferase 11 U/L (0-40); Blood Urea Nitrogen 17 mg/dL (8-23); Calcium 8.7 mg/dL (8.5-10.5); Carbon Dioxide 30 mmol/L (22-29); Chloride 105 mmol/L (98-107); Creatinine Clr Calc Pharmacy 115.8646; Glomerular Filtration Rate 97.3 mL/min (90-130); Glucose 165 mg/dL (65-115); Magnesium 2.1 mg/dL (1.7-2.3); Osmolality Calculated 299 mOsm/kg (285-295); Phosphorus 3.5 mg/dL (2.5-4.5); Potassium 4.6 mmol/L (3.5-5.1); Sodium 142 mmol/L (136-145); Total Bilirubin 0.4 mg/dL (0.15-1.2); Total Protein 6.5 g/dL (6.6-8.7)
[2023-08-01 06:38] LABS: Chol HDL Ratio 5.24 mg/dL (1.0-5.00); Cholesterol 152 mg/dL (0-200); HDL Cholesterol 29 mg/dL (60-100); LDL Cholesterol Calculated 95 mg/dL (50-129); LDL HDL Ratio 3.28 RATIO (0.00-3.22); Triglycerides 141 mg/dL (0-150)
[2023-08-01] MEDS: budesonide 0.5 mg/2 mL Neb INHALATION ×2 (08:29→21:48)
[2023-08-01] MEDS: amlodipine 10 mg Tablet PO (09:11)
[2023-08-01] MEDS: FUROsemide 10 mg/mL SDV 2mL 20 MG IVP (09:12)
[2023-08-01] MEDS: clopidogrel 75 mg Tablet PO (09:12)
[2023-08-01] MEDS: duloxetine 30 mg Capsule PO (09:12)
[2023-08-01] MEDS: gabapentin 300 mg Capsule 600 MG PO ×3 (09:12→20:14)
[2023-08-01] MEDS: metoprolol tartrate 25 mg Tablet PO ×2 (09:12→17:46)
[2023-08-01] MEDS: azithromycin 250 mg Tablet 500 MG PO (09:12)
[2023-08-01 10:28] LABS: Add Urine Microscopic? NO; Charge for UA Resulting for Rev
[2023-08-01 10:38] LABS: Bilirubin Urine Neg (Negative); Blood Urine Neg (Negative); Glucose Urine UA Norm (Normal); Ketones Urine Negative (Negative); Leukocyte Esterase Urine Negative (Negative); Nitrate Urine Negative (Negative); Protein Urine Neg (Negative); Specific Gravity, Urine 1.015 (1.005-1.030); Urine Appearance Clear (CLEAR); Urine Color Yellow (Yellow); Urobilinogen Urine Norm (Negative); pH Urine 5 (5-7)
--- NOTE | 2023-08-01 11:08 | P.PN_ITS ---
Subjective 2 Subjective: Patient is an active smoker, does not watch his sodium and fluid intake Uses 3 to 4 L of oxygen at baseline He is not sure about his previous echo report Blood gas looks compensated this morning Patient has mild aortic stenosis and mild MR EF preserved Vitals/I&O/Wt Last Vital Signs Temp 98.2 F 08/01/23 04:19 Pulse 77 08/01/23 08:40 Resp 18 08/01/23 08:30 BP 135/72 08/01/23 08:00 Pulse Ox 96 08/01/23 08:30 O2 Del Method Nasal Cannula 08/01/23 08:30 O2 Flow Rate 4 08/01/23 08:30 FiO2 45 08/01/23 04:01 07/31/23 08/01/23 08/01/23 21:59 06:59 14:59 Intake Total 240 / 240 Output Total 425 / 425 Balance -185 / -185 Weight last 48 hrs Weight 120.383 kg Weight 120.383 kg Weight 119.794 kg Weight 113.398 kg Physical Exam 2 Narrative: Awake and alert Currently on 4 L GCS 15 Pleasant cough Active sign of fluid overload Hemodynamically stable at the bedside 1+ edema of legs Bilateral breath sound no active wheezing appreciated Data 08/01/23 05:56 08/01/23 05:56 Micro: Microbiology 07/31/23 10:18 Bacterial Antigens - Final Urine Kidney 07/31/23 10:18 Legionella Urinary Antigen - Final Unknown Source 07/31/23 18:59 Blood Culture - Preliminary Blood SPECIMEN COLLECTED 07/31/23 18:07 Blood Culture - Preliminary Blood SPECIMEN COLLECTED A&P Assessment and plan (1) Chronic diastolic CHF (congestive heart failure): (2) Congestive heart failure: (3) Acute exacerbation of chronic obstructive airways disease: (4) Acute respiratory failure with hypoxia: (5) Hypercapnic respiratory failure: (6) Community acquired pneumonia: (7) Restrictive lung disease: (8) Nicotine addiction: Plan Acute COPD exacerbation Compensated this morning No severe wheezing Currently doing well on 4 L Patient is stating that he has trilogy at home and blends 4 L of oxygen in it Acute diastolic CHF Mild , mild MR Patient does not watch his fluid or salt intake I will change his Lasix to Bumex patient takes Lasix 40 mg, will change to Bumex 1 mg daily which can be increased to 2 mg twice a day for severe weight gain and shortness of breath Counseling done for smoking cessation Patient should use sodium less than 2 g Fluid intake should be less than his output We can restrict his fluid intake up to 1400 mL a day Counseling done at the bedside Family is at bedside, understood all instructions Patient is full code does not want to stay in ventilator prolonged. Time Cardiac diet Disposition: Discharge home tomorrow Attestations 2 Medical Necessity Statement*: Continue medical management, possible discharge tomorrow Diagnoses Chronic diastolic CHF (congestive heart failure) I50.32 Congestive heart failure I50.9 Acute exacerbation of chronic obstructive airways disease J44.1 Acute respiratory failure with hypoxia J96.01 Hypercapnic respiratory failure J96.92 Community acquired pneumonia J18.9 Restrictive lung disease J98.4 Nicotine addiction F17.200
[2023-08-01] MEDS: bumetanide 1 mg Tablet PO (11:46)
--- NOTE | 2023-08-01 12:29 | PC.NURSE ---
Pt noted to be using the restroom and not utilizing the urinal set at his bedside. Have asked the pt to please use the urinal without success. Pt doing great and feeling well at this time.
[2023-08-01] MEDS: atorvastatin 40 mg Tablet 80 MG PO (20:14)
[2023-08-01] MEDS: cefTRIAXone 1,000 MG in sodium chloride 0.9% (plus) 50 ML 100 MG IV (20:15)
[2023-08-01] MEDS: enoxaparin 40 mg/0.4 mL Syringe SUBCUT (20:47)
[2023-08-01] MEDS: pantoprazole 40 mg SDV IVP (20:48)
[2023-08-02] VITALS (10 sets, daily range): BP systolic 105–142; BP diastolic 64–73; PULSE 56–68; RESP 16–20; TEMP 36.4–36.5; O2SAT 85–98
[2023-08-02] MEDS: ipratropium-albuterol 3 mL Neb INHALATION ×2 (03:04→08:53)
[2023-08-02 05:03] LABS: Basophils % 0.1 %; Eosinophils % 0.1 %; Hematocrit 39.6 % (37-53); Lymphocytes # 0.9 10^3/uL (0.8-4.8); Lymphocytes % 8.2 %; Mean Corpuscular HGB Conc 30.1 g/dL (30-55); Mean Corpuscular Hemoglobin 25.9 pg (27-33); Mean Corpuscular Volume 86.3 fl (82-101); Mean Platelet Volume 10.4 fL (7.4-10.4); Monocytes # 0.7 10^3/uL (0.2-0.9); Monocytes % 6.1 %; Neutrophils % 84.9 %; Nucleated Red Blood Cells % 0 %; Platelet Count 258 10^3/cmm (157-399); Red Blood Count 4.59 10^6/uL (3.85-5.65); White Blood Count 10.83 10^3/uL (3.29-11.43)
[2023-08-02] MEDS: methylPREDNISolone sod succ 40 mg/mL INJ IVP (05:36)
[2023-08-02 06:44] LABS: Anion Gap 12.8 (5-19); Blood Urea Nitrogen 30 mg/dL (8-23); Calcium 8.9 mg/dL (8.5-10.5); Carbon Dioxide 30 mmol/L (22-29); Chloride 105 mmol/L (98-107); Creatinine Clr Calc Pharmacy 102.9908; Glucose 149 mg/dL (65-115); Osmolality Calculated 305 mOsm/kg (285-295); Potassium 4.8 mmol/L (3.5-5.1); Sodium 143 mmol/L (136-145)
--- NOTE | 2023-08-02 07:21 | P.DS_ITS ---
Documented by User: Linda Urrutia MD 08/01/23 11:33 Discharge Providers Date of Admission: 07/31/23 19:57 Date of Discharge: August 01, 2023 Attending Provider at Admission: Alfonso Dietrich MD Attending Provider at Discharge: Linda Urrutia MD Primary Care Provider: Moody Huffman MD Diagnoses at Discharge Discharge Diagnosis (1) Chronic diastolic CHF (congestive heart failure): Status: Acute (2) Congestive heart failure: Status: Acute (3) Acute exacerbation of chronic obstructive airways disease: Status: Acute (4) Acute respiratory failure with hypoxia: Status: Acute (5) Hypercapnic respiratory failure: Status: Acute (6) Community acquired pneumonia: Status: Acute (7) Restrictive lung disease: Status: Acute (8) Nicotine addiction: Status: Acute Reason for Visit Reason for Visit: cough, sob, wheezing Hospital Course Hospital Course 63-year male with history of preserved action fraction heart failure, obstructive sleep apnea, uses trilogy at home obesity hypoventilation, mild AAS, small airway disease, presented to hospital with chief complaint of worsening of shortness of breath orthopnea and PND. He was diagnosed diastolic CHF exacerbation, he was diuresed with Bumex, his pH shows improvement with use of BiPAP, I have counseled patient to quit smoking, uses trilogy consistently at night. At baseline requires 3 to 4 L of oxygen. at the bedside who understood all instructions. All questions were answered to the satisfaction. Patient does not watch his fluid or sodium intake, sodium intake should be less than 2 g a day with fluid restriction of 1400 mL. I will give him Bumex 1 mg daily and discontinue Lasix at the time of discharge. For community-acquired pneumonia he will get levofloxacin 7-day regimen. Physical Exam Narrative: Pleasant cough GCS 15 Mild send fluid overload Currently doing well on 3 to 4 L of oxygen Pleasant nonfocal neuroexam Abdomen soft Discharge Data Studies Completed and Pending Completed Studies During Hospitalization Category Date Time Status XR chest 1V portable [id number] Stat Exams 07/31/23 17:54 Completed Pending at discharge Category Date Time Status Basic Metabolic Panel AM LABS Lab 08/02/23 04:00 Ordered Blood Culture Stat Lab 07/31/23 18:59 Results Complete Blood Count w/Auto AM LABS Lab 08/02/23 04:00 Ordered Folate Level AM LABS Lab 08/01/23 05:56 Received MRSA [Methicillin Resistant S.aureu] Routine Lab 07/31/23 21:37 Ordered Sputum Culture and Gram Stain Stat Lab 07/31/23 10:18 Received Radiology Impressions Chest X-Ray 07/31/23 17:54 IMPRESSION: 1. Mid to lower lung hazy opacities compatible with atelectasis, edema or developing infection in the proper clinical setting. If there is ongoing clinical concern, consider correlation with CT. Laboratory Results WBC 5.95 10^3/uL (3.29-11.43) 08/01/23 05:56 RBC 4.70 10^6/uL (3.85-5.65) 08/01/23 05:56 Hgb 12.00 g/dL (11.27-16.99) 08/01/23 05:56 Hct 41.1 % (37-53) 08/01/23 05:56 MCV 87.4 fl (82-101) 08/01/23 05:56 MCH 25.5 pg (27-33) L 08/01/23 05:56 MCHC 29.2 g/dL (30-55) L 08/01/23 05:56 RDW 14.6 % (12.1-15.1) 08/01/23 05:56 Plt Count 208 10^3/cmm (157-399) 08/01/23 05:56 MPV 9.3 fL (7.4-10.4) 08/01/23 05:56 Neut % (Auto) 88.6 % 08/01/23 05:56 Lymph % (Auto) 9.4 % 08/01/23 05:56 [place] % (Auto) 1.5 % 08/01/23 05:56 Eos % (Auto) 0.0 % 08/01/23 05:56 Baso % (Auto) 0.2 % 08/01/23 05:56 Neut # (Auto) 5.27 10^3/uL (1.8-7.7) 08/01/23 05:56 Lymph # (Auto) 0.6 10^3/uL (0.8-4.8) L 08/01/23 05:56 [place] # (Auto) 0.1 10^3/uL (0.2-0.9) L 08/01/23 05:56 Eos # (Auto) 0.0 10^3/uL (0.0-0.8) 08/01/23 05:56 Baso # (Auto) 0.0 10^3/uL (0.0-0.1) 08/01/23 05:56 Nucleated RBC % (auto) 0 % 08/01/23 05:56 Nucleated RBCs # 0.0 /100WBC 08/01/23 05:56 D-Dimer 0.68 ug/mLFEU (0-0.59) H 07/31/23 18:07 Specimen Type Arterial 07/31/23 21:50 Sample Site Brachial, right 07/31/23 21:50 ABG pH 7.36 (7.35-7.45) 07/31/23 21:50 ABG pCO2 55.7 mmHg (35-45) H 07/31/23 21:50 ABG pO2 55.4 mmHg (80.0-100.0) L 07/31/23 21:50 ABG PO2/FiO2 Ratio 0 07/31/23 21:50 ABG HCO3 31.4 mmol/L (22-26) H 07/31/23 21:50 ABG O2 Saturation 89.8 07/31/23 21:50 ABG Base Excess 4.6 mmol/L (-2.0-2.0) H 07/31/23 21:50 Kai Test Pos 07/31/23 21:50 A-a O2 Gradient 21.2 mmHg (5-10) H 07/31/23 21:50 Hematocrit 37.8 % (42-52) L 07/31/23 21:50 Hgb O2 Saturation 86.7 % (95-100) L 07/31/23 21:50 Carboxyhemoglobin 2.9 %THgb (0.4-20.1) 07/31/23 21:50 Methemoglobin 0.6 % (0.4-1.5) 07/31/23 21:50 Total Hemoglobin 12.3 g/dL (14-18) L 07/31/23 21:50 Sodium 141.0 mmol/L (131-143) 07/31/23 21:50 Potassium 4.1 mmol/L (3.5-5.0) 07/31/23 21:50 Glucose 151.0 mg/dL (70-115) H 07/31/23 21:50 Ionized Calcium 1.2 mmol/L (1.1-1.4) 07/31/23 21:50 O2 Delivery Device Nc 07/31/23 21:50 O2 Liters/Min 5.0 % 07/31/23 21:50 FiO2 40.0 % 07/31/23 21:50 Sieve Grader Tender ID Alewe 07/31/23 21:50 Sodium 142 mmol/L (136-145) 08/01/23 05:56 Potassium 4.6 mmol/L (3.5-5.1) 08/01/23 05:56 Chloride 105 mmol/L (98-107) 08/01/23 05:56 Carbon Dioxide 30 mmol/L (22-29) H 08/01/23 05:56 Anion Gap 11.6 (5-19) 08/01/23 05:56 BUN 17 mg/dL (8-23) 08/01/23 05:56 Creatinine 0.8 mg/dL (0.7-1.2) 08/01/23 05:56 GFR Calculation 97.3 mL/min (90-130) 08/01/23 05:56 Glucose 165 mg/dL (65-115) H 08/01/23 05:56 Estimat Average Glucose 126 08/01/23 05:56 Hemoglobin A1c 6.0 % (4.0-6.0) 08/01/23 05:56 Calculated Osmolality 299 mOsm/kg (285-295) H 08/01/23 05:56 Lactic Acid 1.2 mmol/L (0.5-2.2) 07/31/23 18:59 Calcium 8.7 mg/dL (8.5-10.5) 08/01/23 05:56 Phosphorus 3.5 mg/dL (2.5-4.5) 08/01/23 05:56 Magnesium 2.1 mg/dL (1.7-2.3) 08/01/23 05:56 Iron 14 ug/dL (59-158) L 07/31/23 18:59 TIBC 302 mcg/dl 07/31/23 18:59 % Saturation 4.6 % (20-50) L 07/31/23 18:59 Unsat Iron Binding 288 ug/dL (112-347) 07/31/23 18:59 Total Bilirubin 0.4 mg/dL (0.15-1.2) 08/01/23 05:56 AST 11 U/L (0-40) 08/01/23 05:56 ALT 6 U/L (0-41) 08/01/23 05:56 Alkaline Phosphatase 63 U/L (40-130) 08/01/23 05:56 NT-Pro-B Natriuret Pep 4147 pg/mL (0-125) H 07/31/23 18:29 Total Protein 6.5 g/dL (6.6-8.7) L 08/01/23 05:56 Albumin 3.5 g/dL (3.5-5.2) 08/01/23 05:56 Globulin 3.0 g/dL (1.3-4.6) 08/01/23 05:56 Triglycerides 141 mg/dL (0-150) 08/01/23 05:56 Cholesterol 152 mg/dL (0-200) 08/01/23 05:56 LDL Cholesterol, Calc 95 mg/dL (50-129) 08/01/23 05:56 HDL Cholesterol 29 mg/dL (60-100) L 08/01/23 05:56 LDL/HDL Ratio 3.28 RATIO (0.00-3.22) H 08/01/23 05:56 Cholesterol/HDL Ratio 5.24 mg/dL (1.0-5.00) H 08/01/23 05:56 Vitamin B12 378 pg/mL (232-1245) 07/31/23 18:59 Procalcitonin 0.08 ng/mL (0-0.5) 07/31/23 18:59 TSH 1.09 uIU/mL (0.27-4.20) 07/31/23 18:59 Urine Color Yellow (Yellow) 07/31/23 10:18 Urine Appearance Clear (CLEAR) 07/31/23 10:18 Urine pH 5 (5-7) 07/31/23 10:18 Ur Specific [place] 1.015 (1.005-1.030) 07/31/23 10:18 Urine Protein Neg (Negative) 07/31/23 10:18 Urine Glucose (UA) Norm (Normal) 07/31/23 10:18 Urine Ketones Negative (Negative) 07/31/23 10:18 Urine Blood Neg (Negative) 07/31/23 10:18 Urine Nitrate Negative (Negative) 07/31/23 10:18 Urine Bilirubin Neg (Negative) 07/31/23 10:18 Urine Urobilinogen Norm mg/dL (Negative) 07/31/23 10:18 Ur Leukocyte Esterase Negative (Negative) 07/31/23 10:18 Coronavirus 229E (PCR) Not detected (NOT DETECT) 07/31/23 15:46 Influenza Type A Ag negative (Negative) 07/31/23 18:18 Influenza Type B Ag negative (Negative) 07/31/23 18:18 SARS-CoV-2 (PCR) Not detected (NOT DETECT) 07/31/23 15:46 Vitals Last Vital Signs Temp 98.2 F 08/01/23 04:19 Pulse 77 08/01/23 08:40 Resp 18 08/01/23 08:30 BP 135/72 08/01/23 08:00 Pulse Ox 96 08/01/23 08:30 O2 Del Method Nasal Cannula 08/01/23 08:30 O2 Flow Rate 4 08/01/23 08:30 FiO2 45 08/01/23 04:01 Discharge Plan Discharge Patient Disposition: Home Condition: Stable Prescriptions: New levofloxacin 750 mg tablet 750 mg PO DAILY 7 Days Qty: 7 0RF bumetanide 1 mg tablet 1 mg PO DAILY Qty: 90 4RF potassium chloride 10 mEq tablet extended release 10 meq PO DAILY Qty: 60 3RF Continued metoprolol tartrate 25 mg tablet 25 mg PO BID albuterol sulfate 90 mcg/actuation HFA aerosol inhaler 1 puff inhalation Q4H PRN (Reason: Shortness Of Breath) duloxetine [Cymbalta] 30 mg capsule,delayed release(DR/EC) 30 mg PO DAILY Qty: 90 1RF Rx Instructions: Take one tablet daily. Stiolto Respimat 2.5-2.5 mcg/actuation mist 2 puff inhalation DAILY Qty: 4 6RF Vitamin B-12 50 mcg Tablet 50 mcg PO DAILY fenofibrate 54 mg tablet 54 mg PO DAILY atorvastatin 80 mg tablet 80 mg PO BEDTIME baclofen 10 mg tablet 10 mg PO TID PRN (Reason: Pain) clopidogrel 75 mg tablet 75 mg PO DAILY acetaminophen [Tylenol Extra Strength] 500 mg Tablet 500 - 1,000 mg PO Q6H PRN (Reason: Pain) docusate sodium [Colace] 100 mg Capsule 100 mg PO DAILY PRN (Reason: Constipation) diphenhydramine HCl [Allergy Relief(diphenhydramin)] 25 mg Tablet 25 mg PO DAILY PRN (Reason: Allergy Symptoms) Centrum Silver Men 300-600-300 mcg Tablet 1 tab PO DAILY gabapentin 300 mg Capsule 600 mg PO 1300 gabapentin 300 mg Capsule 900 mg PO 08,20 amlodipine 10 mg tablet 10 mg PO DAILY Qty: 30 0RF Discontinued furosemide 20 mg tablet 20 mg PO DAILY Qty: 30 5RF Hold Instructions: Resume on 10/13/21. diclofenac sodium 50 mg tablet,delayed release (DR/EC) 50 mg PO TID PRN (Reason: Back Pain) Hold Instructions: Resume on 09/28/21. Discharge Orders: Discharge Order (Routine); Ordered 08/02/23 Ordered By: Delmy Phillips Referrals: Moody Huffman MD [Primary Care Provider] - 08/05/23 1:30 pm () Daniel Chavira M.D [Physician] - 08/09/23 3:00 pm Discharge Diet: Cardiac Patient Instructions: Bumetanide (By mouth) (Bumex), Potassium Chloride (By mouth) (K-Dur, K-Diana, K-Tab, Asaf Mur), Levofloxacin (By mouth) (Levaquin, Levaquin Leva-yenni), Acute Respiratory Failure (GEN), CHF Stoplight, Opioid Safety Activity Restrictions/Additional Instructions: Watch her sodium intake keep it less than 2 g a day Fluid restriction 1400 mill per day Use Bumex 1 mg daily instead of Lasix, you can increase Bumex dose to 2 mg daily depending on your weight shortness of breath and symptoms Always take potassium whenever you take water pill Quit smoking Your ejection fraction is preserved, you have mild aortic stenosis mild mitral regurgitation We would recommend following up with a airborne weapons technical manager in future you do not need to see them urgently Discharge Attestations Status at Discharge: Cognitive status at discharge: cognitively intact , Behavioral status at discharge: cooperative and dependent in ADL's , Coding Level of Care Code Acute Code for [facility] Fwd Diagnoses Chronic diastolic CHF (congestive heart failure) I50.32 Congestive heart failure I50.9 Acute exacerbation of chronic obstructive airways disease J44.1 Acute respiratory failure with hypoxia J96.01 Hypercapnic respiratory failure J96.92 Community acquired pneumonia J18.9 Restrictive lung disease J98.4 Nicotine addiction F17.200 Documented by User: Delmy Phillips MD 08/02/23 09:21 Diagnoses at Discharge Discharge Diagnosis (1) Chronic diastolic CHF (congestive heart failure): Status: Acute (2) Congestive heart failure: Status: Acute (3) Acute exacerbation of chronic obstructive airways disease: Status: Acute (4) Acute respiratory failure with hypoxia: Status: Acute (5) Hypercapnic respiratory failure: Status: Acute (6) Community acquired pneumonia: Status: Acute (7) Restrictive lung disease: Status: Acute (8) Nicotine addiction: Status: Acute Reason for Visit Reason for Visit: cough, sob, wheezing Hospital Course Hospital Course 63-year male with history of preserved action fraction heart failure, obstructive sleep apnea, uses trilogy at home obesity hypoventilation, mild AAS, small airway disease, presented to hospital with chief complaint of worsening of shortness of breath orthopnea and PND. He was diagnosed diastolic CHF exacerbation, he was diuresed with Bumex, his pH shows improvement with use of BiPAP, I have counseled patient to quit smoking, uses trilogy consistently at night. At baseline requires 3 to 4 L of oxygen. at the bedside who understood all instructions. All questions were answered to the satisfaction. Patient does not watch his fluid or sodium intake, sodium intake should be less than 2 g a day with fluid restriction of 1400 mL. I will give him Bumex 1 mg daily and discontinue Lasix at the time of discharge. For community-acquired pneumonia he will get levofloxacin 7-day regimen. Physical Exam Narrative: Pleasant cough GCS 15 Clear to auscultation b/l, no wheezes or ronchi Currently doing well on 3 to 4 L of oxygen Pleasant nonfocal neuroexam Abdomen soft NO ACUTE distress, sitting up in bed appearing comfortable looking forward to going home Discharge Plan Discharge Patient Disposition: Home Condition: Stable Prescriptions: New levofloxacin 750 mg tablet 750 mg PO DAILY 7 Days Qty: 7 0RF bumetanide 1 mg tablet 1 mg PO DAILY Qty: 90 4RF potassium chloride 10 mEq tablet extended release 10 meq PO DAILY Qty: 60 3RF Continued metoprolol tartrate 25 mg tablet 25 mg PO BID albuterol sulfate 90 mcg/actuation HFA aerosol inhaler 1 puff inhalation Q4H PRN (Reason: Shortness Of Breath) duloxetine [Cymbalta] 30 mg capsule,delayed release(DR/EC) 30 mg PO DAILY Qty: 90 1RF Rx Instructions: Take one tablet daily. Stiolto Respimat 2.5-2.5 mcg/actuation mist 2 puff inhalation DAILY Qty: 4 6RF Vitamin B-12 50 mcg Tablet 50 mcg PO DAILY fenofibrate 54 mg tablet 54 mg PO DAILY atorvastatin 80 mg tablet 80 mg PO BEDTIME baclofen 10 mg tablet 10 mg PO TID PRN (Reason: Pain) clopidogrel 75 mg tablet 75 mg PO DAILY acetaminophen [Tylenol Extra Strength] 500 mg Tablet 500 - 1,000 mg PO Q6H PRN (Reason: Pain) docusate sodium [Colace] 100 mg Capsule 100 mg PO DAILY PRN (Reason: Constipation) diphenhydramine HCl [Allergy Relief(diphenhydramin)] 25 mg Tablet 25 mg PO DAILY PRN (Reason: Allergy Symptoms) Centrum Silver Men 300-600-300 mcg Tablet 1 tab PO DAILY gabapentin 300 mg Capsule 600 mg PO 1300 gabapentin 300 mg Capsule 900 mg PO 08,20 amlodipine 10 mg tablet 10 mg PO DAILY Qty: 30 0RF Discontinued furosemide 20 mg tablet 20 mg PO DAILY Qty: 30 5RF Hold Instructions: Resume on 10/13/21. diclofenac sodium 50 mg tablet,delayed release (DR/EC) 50 mg PO TID PRN (Reason: Back Pain) Hold Instructions: Resume on 09/28/21. Discharge Orders: Discharge Order (Routine); Ordered 08/02/23 Ordered By: Delmy Phillips Referrals: Moody Huffman MD [Primary Care Provider] - 08/05/23 1:30 pm () Daniel Chavira M.D [Physician] - 08/09/23 3:00 pm Discharge Diet: Cardiac Patient Instructions: Bumetanide (By mouth) (Bumex), Potassium Chloride (By mouth) (K-Dur, K-Diana, K-Tab, Asaf Mur), Levofloxacin (By mouth) (Levaquin, Levaquin Leva-yenni), Acute Respiratory Failure (GEN), CHF Stoplight, Opioid Safety Activity Restrictions/Additional Instructions: Watch her sodium intake keep it less than 2 g a day Fluid restriction 1400 mill per day Use Bumex 1 mg daily instead of Lasix, you can increase Bumex dose to 2 mg daily depending on your weight shortness of breath and symptoms Always take potassium whenever you take water pill Quit smoking Your ejection fraction is preserved, you have mild aortic stenosis mild mitral regurgitation We would recommend following up with a airborne weapons technical manager in future you do not need to see them urgently Discharge Attestations Time Spent in Discharge Care*: greater than 30 min Quality Metrics Clinical Quality Measures [ No reported AMI, CVA or VTE this stay] Coding Level of Care Code Acute Code for [facility] Fwd Diagnoses Chronic diastolic CHF (congestive heart failure) I50.32 Congestive heart failure I50.9 Acute exacerbation of chronic obstructive airways disease J44.1 Acute respiratory failure with hypoxia J96.01 Hypercapnic respiratory failure J96.92 Community acquired pneumonia J18.9 Restrictive lung disease J98.4 Nicotine addiction F17.200
[2023-08-02] MEDS: amlodipine 10 mg Tablet PO (08:29)
[2023-08-02] MEDS: bumetanide 1 mg Tablet PO (08:29)
[2023-08-02] MEDS: duloxetine 30 mg Capsule PO (08:29)
[2023-08-02] MEDS: clopidogrel 75 mg Tablet PO (08:29)
[2023-08-02] MEDS: gabapentin 300 mg Capsule 600 MG PO (08:29)
[2023-08-02] MEDS: metoprolol tartrate 25 mg Tablet PO (08:30)
[2023-08-02] MEDS: azithromycin 250 mg Tablet 500 MG PO (08:30)
[2023-08-02] MEDS: budesonide 0.5 mg/2 mL Neb INHALATION (08:53)
--- NOTE | 2023-08-02 10:00 | PC.NURSE ---
Discharge Note Patient discharged to home via private vehicle accompanied by SO. Discharge instructions reviewed with patient and/or underwriting sales representative. Mobile pharmacy medications and/or prescriptions provided. Belongings/home medications returned-cellphone, IS, flutter valve, shoes. Discharge packet for chf, pneumonia and copd stoplights provided to pt. Pt educated on new Rx, dosing timing and frequency, informed on his continued home meds and stopped meds. pt verbalizes understanding.
--- NOTE | 2023-08-02 10:00 | PC.SOCIAL ---
IMM Update pg 2 of IMM updated and reviewed w/ patient. Copy provided and copy dated, initialed and placed in chart.
--- NOTE | 2023-08-02 10:14 | PC.NURSE ---
pt qualified for home oxygen case mgt nurse Yanci notified, [employer] will provide a portable tank. waiting for it. Pt informed about his oxygen requirement and company has to deliver the tank. he verbalizes understanding.
[2023-08-02 12:28] LABS: Folate Level 7.7 ng/mL (4.5-32.2)
== END 2023-08-02 11:50 | DRG 189 ==
LOC: ER 19:26 → CSU 19:58
PROVIDERS: Internal Medicine; Admitting Provider Student in an Organized Health Care Education/Training Program; Emergency Provider Emergency Medicine; PCP Family Medicine; Visit Provider Internal Medicine
DX: J96.22 Acute and chronic respiratory failure with hypercapnia (principal); I50.33 Acute on chronic diastolic (congestive) heart failure; J18.9 Pneumonia, unspecified organism; J44.0 Chronic obstructive pulmonary disease with (acute) lower respiratory infection; J44.1 Chronic obstructive pulmonary disease with (acute) exacerbation; E66.2 Morbid (severe) obesity with alveolar hypoventilation; Z68.41 Body mass index [BMI] 40.0-44.9, adult; I11.0 Hypertensive heart disease with heart failure; J96.21 Acute and chronic respiratory failure with hypoxia; I08.0 Rheumatic disorders of both mitral and aortic valves; E78.5 Hyperlipidemia, unspecified; F32.A Depression, unspecified; F41.9 Anxiety disorder, unspecified; K21.9 Gastro-esophageal reflux disease without esophagitis; Z79.02 Long term (current) use of antithrombotics/antiplatelets; Z11.52 Encounter for screening for COVID-19; Z99.81 Dependence on supplemental oxygen; Z86.73 Personal history of transient ischemic attack (TIA), and cerebral infarction without residual deficits; Z87.891 Personal history of nicotine dependence
CPT/HCPCS: 36415; 36600; 71045; 80048; 80051; 80053; 80061; 81003; 82330; 82607; 82746; 82805; 83036; 83540; 83550; 83605; 83735; 83880; 84100; 84145; 84443; 85025; 85378; 86403; 87040; 87070; 87205; 87449; 87635; 87804; 93005; 94640; 94660; 94760; 96365; 96367; 96372; 96375; 96376; 99291; C9113; J0456; J0696; J1650; J1940; J2920; J2930; J7050; J7613; J7626; Q0144

== ENCOUNTER → 2023-08-09 14:31 | Outpatient (BNVA) | payer MEDICARE, SELFPAY | PROVIDERS: PCP Family Medicine; Visit Provider Nurse Practitioner Family | DX: I11.0 Hypertensive heart disease with heart failure (principal); I50.32 Chronic diastolic (congestive) heart failure; Z87.891 Personal history of nicotine dependence | CPT/HCPCS: 99213 ==

== ENCOUNTER → 2023-08-18 13:10 | Outpatient (BNVA) | payer MEDICARE, SELFPAY | PROVIDERS: PCP Family Medicine; Visit Provider Specialist | DX: R29.90 Unspecified symptoms and signs involving the nervous system (principal); G89.0 Central pain syndrome; G57.11 Meralgia paresthetica, right lower limb | CPT/HCPCS: 99214 ==

== ENCOUNTER → 2023-09-16 16:04 | Outpatient (BNVA) | payer MEDICARE, SELFPAY | PROVIDERS: PCP Family Medicine; Visit Provider Specialist | DX: R29.90 Unspecified symptoms and signs involving the nervous system (principal); G57.11 Meralgia paresthetica, right lower limb; G89.0 Central pain syndrome | CPT/HCPCS: 99212 ==

== ENCOUNTER 2023-10-15 10:25 | Outpatient (CLI) | payer MEDICARE, SELFPAY ==
--- NOTE | 2023-10-15 11:59 | CT_ITS ---
WS: [id number] CT chest wo con [id number] HISTORY: SOB; FORMER HEAVY TOBACCO USER; ABNORMAL CXR TECHNIQUE: Axial imaging performed through the thorax. Coronal and sagittal reformats are submitted. All CT scans at [facility] use at least one of these dose optimization techniques: automated exposure control; mA and/or kV adjustment per patient size (includes targeted exams where dose is mat ched to clinical indication); or iterative reconstruction. CONTRAST: None DLP: 736.31 mGy.cm COMPARISON: Chest CT 04/26/2023, radiograph 10/04/2021 and 07/31/2023 Lungs and central airway: Subsegmental linear atelectasis LEFT lower lobe. Long-term stability RIGHT lower lobe noncalcified pulmonary nodule. There is no hazy attenuation or pneumonitis identified on t bonita's CT. The localizer image is essentially normal. Pleura: Normal. No pleural effusion. Heart and pericardium: Mild cardiomegaly. No pericardial effusion. Mediastinum and chi: Small mediastinal lymph nodes. No pathologic lymph nodes identified. Vessels: Mild atherosclerosis aorta. No aneurysm. Normal size pulmonary artery. Chest wall and lower neck: No soft tissue masses. Upper abdomen: Normal adrenal glands. Negative gallbladder. Mild hepatic steatosis. Osseous structures: No destructive process. CT/CT chest wo con [id number] IMPRESSION: 1. No pneumonia or pneumonitis. 2. As compared to the recent chest radiograph the interstitium is much improve d. This may have been related to mild pulmonary edema which has resolved in the interval. 3. Long-term stability 5 mm RIGHT lower lobe nodule.
== END 2023-10-15 10:26 | disposition home or self-care (01) ==
LOC: RAD 10:25
PROVIDERS: PCP Family Medicine; Visit Provider Family Medicine
DX: R91.1 Solitary pulmonary nodule (principal); J98.11 Atelectasis; I51.7 Cardiomegaly; K76.0 Fatty (change of) liver, not elsewhere classified; Z87.891 Personal history of nicotine dependence
CPT/HCPCS: 71250

== ENCOUNTER → 2023-10-20 08:20 | Outpatient (BNVA) | payer MEDICARE, SELFPAY | PROVIDERS: PCP Family Medicine; Visit Provider Internal Medicine Pulmonary Disease | DX: G47.33 Obstructive sleep apnea (adult) (pediatric) (principal); F17.200 Nicotine dependence, unspecified, uncomplicated | CPT/HCPCS: 99214 ==

== ENCOUNTER → 2023-10-21 14:20 | Outpatient (BNVA) | payer MEDICARE, SELFPAY | PROVIDERS: PCP Family Medicine; Visit Provider Specialist | DX: G57.11 Meralgia paresthetica, right lower limb (principal); R29.90 Unspecified symptoms and signs involving the nervous system; G89.0 Central pain syndrome | CPT/HCPCS: 64447; 99213; J1010; J3490 ==

== ENCOUNTER → 2023-12-02 08:04 | Outpatient (BNVA) | payer MEDICARE, SELFPAY | PROVIDERS: PCP Family Medicine; Visit Provider Specialist | DX: R29.90 Unspecified symptoms and signs involving the nervous system (principal); G57.11 Meralgia paresthetica, right lower limb; G89.0 Central pain syndrome; R03.0 Elevated blood-pressure reading, without diagnosis of hypertension | CPT/HCPCS: 64447; J1010; J3490 ==

== ENCOUNTER → 2024-01-06 14:15 | Outpatient (BNVA) | payer MEDICARE, SELFPAY | PROVIDERS: PCP Family Medicine; Visit Provider Specialist | DX: R29.90 Unspecified symptoms and signs involving the nervous system (principal); G57.11 Meralgia paresthetica, right lower limb; G89.0 Central pain syndrome; R03.0 Elevated blood-pressure reading, without diagnosis of hypertension | CPT/HCPCS: 64447; J1010; J3490 ==

== ENCOUNTER → 2024-02-03 08:41 | Outpatient (BNVA) | payer MEDICARE, SELFPAY | PROVIDERS: PCP Family Medicine; Visit Provider Specialist | DX: R29.90 Unspecified symptoms and signs involving the nervous system (principal); G57.11 Meralgia paresthetica, right lower limb; G89.0 Central pain syndrome; R03.0 Elevated blood-pressure reading, without diagnosis of hypertension | CPT/HCPCS: 64450; 99212; J1010; J3490 ==

== ENCOUNTER → 2024-04-19 14:25 | Outpatient (BNVA) | payer MEDICARE, SELFPAY | PROVIDERS: PCP Family Medicine; Visit Provider Specialist | DX: G57.11 Meralgia paresthetica, right lower limb (principal); G89.0 Central pain syndrome; R29.90 Unspecified symptoms and signs involving the nervous system; R03.0 Elevated blood-pressure reading, without diagnosis of hypertension | CPT/HCPCS: 64447; 99213; J1010; J3490 ==

== ENCOUNTER → 2024-05-10 12:17 | Outpatient (BNVA) | payer MEDICARE, SELFPAY | PROVIDERS: PCP Family Medicine; Visit Provider Internal Medicine | DX: I11.0 Hypertensive heart disease with heart failure (principal); I50.32 Chronic diastolic (congestive) heart failure; E78.5 Hyperlipidemia, unspecified; Z87.891 Personal history of nicotine dependence | CPT/HCPCS: 99214 ==

== ENCOUNTER → 2024-07-21 09:59 | Outpatient (BNVA) | payer MEDICARE, SELFPAY | PROVIDERS: PCP Family Medicine; Visit Provider Specialist | DX: G57.11 Meralgia paresthetica, right lower limb (principal); R29.90 Unspecified symptoms and signs involving the nervous system; G89.0 Central pain syndrome; R03.0 Elevated blood-pressure reading, without diagnosis of hypertension | CPT/HCPCS: 64450; 99212; J1010; J3490 ==

== ENCOUNTER → 2024-09-01 14:37 | Outpatient (BNVA) | payer MEDICARE, SELFPAY | PROVIDERS: PCP Family Medicine; Visit Provider Specialist | DX: G57.11 Meralgia paresthetica, right lower limb (principal) | CPT/HCPCS: 64450; J1010; J3490 ==

== ENCOUNTER → 2024-11-30 08:52 | Outpatient (BNVA) | payer MEDICARE, SELFPAY | PROVIDERS: PCP Family Medicine; Visit Provider Specialist | DX: G57.11 Meralgia paresthetica, right lower limb (principal); R29.90 Unspecified symptoms and signs involving the nervous system; G89.0 Central pain syndrome; R03.0 Elevated blood-pressure reading, without diagnosis of hypertension | CPT/HCPCS: 64450; J1010; J3490 ==

== ENCOUNTER 2024-12-14 08:55 | Outpatient (CLI) | payer MEDICARE, SELFPAY ==
--- NOTE | 2024-12-14 09:10 | CT_ITS ---
WS: [id number] LDCT LUNG CANCER SCREENING HISTORY: HISTORY OF TOBACCO USE TECHNIQUE: Axial imaging performed from the apices to 1 cm below the costophrenic angles. Coronal and sagittal reformats are submitted with axial MIP series. All CT scans at [facility] use at least one of these dose optimization techniques: automated exposure control; mA and/or kV adjustment per patient size (includes targeted exams where dose is matched to clinical indication); or iterative reconstruction. DLP: 123.01 mGy.cm DIvol: Mean CTDIvol: 2.80 (mGy) COMPARISON: 10/15/2023 Diagnostic quality: Satisfactory Lungs: Linear atelectasis lingula and LEFT lung base. Long-term stability 5 mm nodule RIGHT lower lobe. No new pulmonary masses or nodules Dependent changes at the lung bases. No endobronchial lesions. Heart: Normal size heart with no pericardial effusion.. Other findings: Mild atherosclerosis aorta. No pathologically enlarged lymph nodes. No adrenal mass. Midthoracic hypertrophic osteophytosis. CT/CT lung screening [id number] IMPRESSION: LUNG-RADS: 2-Benign Appearance or Behavior FOLLOW UP: 12 Month: Continue annual screening with LDCT OTHER FINDINGS (S MODIFIER): None.
== END 2024-12-14 08:56 | disposition home or self-care (01) ==
LOC: RAD 08:56
PROVIDERS: PCP Family Medicine; Visit Provider Family Medicine
DX: Z12.2 Encounter for screening for malignant neoplasm of respiratory organs (principal); Z87.891 Personal history of nicotine dependence; I70.0 Atherosclerosis of aorta; R91.1 Solitary pulmonary nodule
CPT/HCPCS: 71271

== ENCOUNTER → 2025-03-08 09:37 | Outpatient (BNVA) | payer MEDICARE, SELFPAY | PROVIDERS: PCP Family Medicine; Visit Provider Specialist | DX: G57.11 Meralgia paresthetica, right lower limb (principal) | CPT/HCPCS: 64450; J9999 ==

== ENCOUNTER → 2025-05-09 12:14 | Outpatient (BNVA) | payer MEDICARE, SELFPAY | PROVIDERS: PCP Family Medicine; Visit Provider Internal Medicine | DX: I11.0 Hypertensive heart disease with heart failure (principal); I50.32 Chronic diastolic (congestive) heart failure; F17.200 Nicotine dependence, unspecified, uncomplicated | CPT/HCPCS: 99213 ==